=== PATIENT | female | born 1970 | race Caucasian/White ===

== ENCOUNTER 2017-07-20 21:09 | Emergency (ER) | payer MEDICAID, SELFPAY ==
[2017-07-20 21:15] VITALS: BP 129/59; PULSE 108; RESP 18; TEMP 36.6; O2SAT 100; BMI 41.3
--- NOTE | 2017-07-20 21:33 | CT_ITS ---
STUDY: CT ABDOMEN AND PELVIS WITHOUT CONTRAST REASON FOR EXAM: Female, 47 years old. Abdominal pain and chills. RADIATION DOSAGE (If Supplied By Facility): CTDIvol = ( 22.53 ) mGy, DLP = ( 1401.50 ) mGycm TECHNIQUE: Transaxial images were obtained from the dome of the diaphragm to the symphysis pubis without oral contrast, and without intravenous contrast. Sagittal and coronal images were reconstructed. Individualized dose optimization techniques were used for this CT. COMPARISON: Prior comparison studies are not available for review at this time. FINDINGS: The visualized lung bases are unremarkable. The visualized portions of the heart are within normal limits. Normal liver. There is no evidence of gallstones. The common bile duct however appears to be dilated and somewhat denser than simple bile. Normal spleen. Normal pancreas. Normal bilateral adrenal glands. Normal right kidney. There is a 4 mm nonobstructing stone in the midpole of the left kidney. There is no evidence of hydronephrosis. Normal visualized stomach. There are fluid-filled slightly prominent proximal small bowel loops. The more distal small bowel loops are less distended and normal in caliber. There is fecal retention. The descending colon is under distended. There is mild diverticulosis of the sigmoid colon but there is no evidence of acute diverticulitis. The appendix is visualized and appears normal. Normal abdominal aorta. Normal inferior vena cava. Normal retroperitoneum. The urinary bladder is underdistended. There is absence of the uterus consistent with a prior hysterectomy. There is diastases of the anterior rectus muscles. There is no definite hernia. There is no demonstrated acute osseous changes. CT/Abdomen/Pelvis without Cont IMPRESSION: Fluid-filled proximal small bowel loops which could be due to ileus or enteritis. Early small bowel obstruction is less likely but cannot be entirely excluded. Dilated and somewhat dense common bile duct. Further evaluation with gallbladder ultrasound or MRCP are recommended. Diverticulosis without evidence of acute diverticulitis. 4 mm nonobstructing stone in the left kidney without evidence of hydronephrosis. Electronically Signed: Derick Guzman MD at 22:59 EST Tel , Service support ,
[2017-07-20] MEDS: Ondansetron 4 MG/2 ML Vial IV (21:50)
[2017-07-20] MEDS: 0.9% Normal Saline 1,000 ML 1000 ML IV (21:50)
[2017-07-20 21:54] LABS: Absolute Lymphocyte Count 2.23 X10^3/ul (0.83-4.51); Absolute Neutrophil Count 2.9 X10^3/uL (2.0-7.7); Basophil# 0.02 X10^3/uL; Basophil% 0.3 % (0-1); Eosinophil# 0.28 X10^3/uL; Eosinophils% 4.8 % (0-5); Lymphocyte # 2.23 X10^3/ul (4.0); Lymphocyte % 38.5 % (19-41); Mean Corp Hgb Conc 33.3 g/gl (32-36); Mean Corpuscular Hgb 30.2 pg (27.0-32.0); Mean Corpuscular Volume 90.5 fL (81-99); Mean Platelet Vol. 11.9 fl (6.2-12.0); Monocyte# 0.31 X10^3/uL; Monocyte% 5.4 % (0-10); Neutrophil # 2.94 X10^3/uL (2.7-7.7); Neutrophil % 50.8 % (47-70); POSITIVE COUNT NO; POSITIVE DIFFERENTIAL NO; POSITIVE MORPHOLOGY NO; Platelet Count 201 K/mm3 (150-450); RBC Distribution Width CV 14.2 % (11.6-14.6); RBC Distribution Width SD 46.5 fl (35.1-43.9); Red Blood Count 4.64 M/mm3 (4.2-5.4); White Blood Count 5.8 K/mm3 (4.4-11.0)
[2017-07-20 22:05] LABS: AST(SGOT) 25 U/L (15-37); Alanine Aminotransfer ALT/SGPT 40 U/L (13-56); Albumin, Serum 3.7 g/dL (3.2-5.0); Alkaline Phosphatase 74 U/L (45-117); Anion Gap 7 (5-15); BUN 13 mg/dL (7-18); Calcium,Total 9.2 mg/dL (8.5-10.1); Chloride 109 mmol/L (98-107); Creatinine, Serum 0.81 mg/dL (0.55-1.02); EST Glomerular Filtration Rate 81 mL/min (>60); Est Glom Filt Rate - Afr Amer 98 mL/min (>60); Globulin 3.6 g/dL (2.2-4.2); Glucose 108 mg/dL (74-106); Lipase 224 U/L (73-393); Potassium 3.8 mmol/L (3.5-5.1); Protein, Total 7.3 g/dL (6.4-8.2); Sodium Level 143 mmol/L (136-145)
[2017-07-20 22:07] LABS: Bacteria 0 SEEN /hpf (None Seen); Mucous, Urine 0 SEEN /hpf (<or=2+); Red Blood Cells-Urine 0 SEEN /hpf (0-5)
[2017-07-20 22:09] LABS: Color, Urine Yellow (Yellow); Glucose, Dipstick Normal (Normal); Ketone-Dipstick Negative (Negative); Leukocyte Esterase-Dipstick 25 /ul (Negative); Nitrite-Dipstick Negative (Negative); Occult Blood-Urine Negative /ul (Negative); Protein-Dipstick Negative (Negative); Urine Bilirubin Dipstick Negative (Negative); Urine Clarity Clear (Clear); Urine Urobilinogen Normal (Normal)
--- NOTE | 2017-07-20 22:13 | ED.VISSUMM ---
- ER Visit Summary Date of Service: 07/20/17 Chief Complaint: Abdominal pain History of Present Illness: The patient is a 47 F with abdominal pain for several months. The pain is in her upper abdomen and she feels that her intestines are twirling. She also feels pain like a charley horse. The patient saw a physician's ophthalmology assistant last week and was instructed to present to the ED for an evaluation, but she did not because her family was visiting this weekend. She had continued symptoms and her family left, and so she presents today for an evaluation. She also has left lower quadrant pain. She has no history of diverticulosis or diverticulitis. She denies any change in her bowel movements. She also tells me that she had a recent elevated white blood cell count and abnormal kidney function testing. She did have follow-up blood work and tells me that her labs were back to normal. She has had elevated liver enzymes in the past. Patient also complains of bilateral lower extremity pitting edema. Denies any history of CHF or other cardiac disease. Physical Examination: Afebrile and vital signs unremarkable except for a heart rate of 108. Patient appears nontoxic and in no acute distress. Skin appears normal in color without diaphoresis or pallor. Heart is slightly tachycardic but regular. Lungs are clear throughout. Abdomen is tender to palpation in the left lower quadrant. No guarding or rebound. No distention noted. No masses palpable. Back is nontender. Patient has 1+ lower extremity pitting edema. Calves soft and supple otherwise. Pulses strong and equal. Test Results: Laboratory studies, urinalysis, and CT abdomen and pelvis pending. Emergency Department Course and Treatment: Patient received fluids, morphine, and Zofran while awaiting results. CBC, CMP, lipase, urinalysis unremarkable. CT abdomen showed a fluid-filled small bowel loops concerning for ileus versus enteritis versus early small bowel obstruction. She also had a dilated and dense common bile duct. Right upper quadrant ultrasound is pending. She also had diverticulosis without diverticulitis. Patient had no new or worsening symptoms on reevaluation. I spoke with her about the abnormal CT findings. The patient says she cannot be admitted because she has to take care of her mom at home. She will come back if able. Before she leaves, we will check a right upper quadrant ultrasound. The oncoming physician will check the results of the ultrasound. If negative, the patient will leave AGAINST MEDICAL ADVICE. If the ultrasound is abnormal, the oncoming physician will address the results. I suspect the patient may still request to leave AGAINST MEDICAL ADVICE. Patient was advised of the risks of leaving AGAINST MEDICAL ADVICE including worsening pain, dehydration, and other complications from ileus and/or obstruction. Patient voiced understanding and agreement. Treatment Plan: As above Disposition: Leaving AGAINST MEDICAL ADVICE pending the results of the right upper quadrant ultrasound Impression: 1. Ileus 2. Dilated common bile duct This note was generated with [employer] dictation software. It may contain incorrect words, spelling, and punctuation that were not noted in review of the chart prior to signing ED Disposition - Plan for ED Patient: Chief Complaint: General Illness Referrals: Glenn Jefferson MD [Primary Care Provider] -
[2017-07-20 22:15] LABS: Squamous Epithelial Cells - UA 5-10 SEEN /hpf (5-10); White Blood Cells 0-5 SEEN /hpf (0-5)
--- NOTE | 2017-07-20 23:22 | US_ITS ---
STUDY: ABDOMINAL ULTRASOUND - RIGHT UPPER QUADRANT REASON FOR VISIT: Female, 47 years old. Normal CBD on recent CT scan. TECHNIQUE: Ultrasound evaluation of the right upper quadrant was performed with real-time and static grant-scale imaging. TECHNICAL QUALITY: Adequate. COMPARISON: None. FINDINGS: Liver: The liver measures 15.3 cm. There is normal echogenicity of the liver. The bile ducts are within normal limits. There is hepatic color flow. The direction of portal flow is hepatopetal. There is no demonstrated mass lesion. Gallbladder: Gallbladder is distended and tortuous. The gallbladder wall measures 2 mm. There is a negative sonographic Medina's sign. There is no pericholecystic fluid. There are no gallstones. Common Bile Duct (C.B.D.): The common bile duct measures 8 mm. Pancreas: The pancreas is grossly unremarkable but suboptimally visualized. The tail of the pancreas is obscured by bowel gas. Right Kidney: Normal size of the right kidney. The right kidney measures 12 x 5.3 x 5 cm. Normal renal cortex. The right cortex measures 1.2 cm. There is no demonstrated renal mass or cyst. There is probable small nonobstructing stone in the right kidney. There is no evidence of hydronephrosis. US/Gallbladder IMPRESSION: Dilated common bile duct without evidence of gallstones. Further evaluation with MRCP might be of value. Small nonobstructing stone in the right kidney. Electronically Signed: Derick Guzman MD at 0:24 EST Tel , Service support ,
[2017-07-20 23:31] VITALS: RESP 18
--- NOTE | 2017-07-20 23:47 | ED.DEP ---
ED Disposition - Plan for ED Patient: Chief Complaint: General Illness Instructions: Ileus Referrals: Glenn Jefferson MD [Primary Care Provider] -
[2017-07-21 00:47] VITALS: BP 121/75; PULSE 98; RESP 14; O2SAT 99
--- NOTE | 2017-07-21 00:47 | ED.RN ---
THIS RN GAVE PT VERBAL AND WRITTEN DISCHARGE INSTRUCTIONS. AMA PAPERWORK SIGNED PRIOR TO THIS RN ASSUMING PT CARE. THIS RN ASKS PT IF SHE HAS ANY QUESTIONS. PT DENIES FURTHER QUESTIONS ON DISCHARGE INSTRUCTIONS. PT TOLD TO RETURN TO ED FOR ANY WORSENED SX OF NEW SX. PT REPORTS IF SHE CAN FIND SOMEONE TO TAKE CARE OF HER MOTHER THAT SHE WOULD RETURN TO BE ADMITTED. PT THEN VOICES CONCERN ABOUT SWELLING IN HER LEGS. THIS RN STATED SHE COULD HAVE THE DRJose RETURN TO ROOM AND ANSWER ANY FURTHER QUESTIONS. PT DENIES OFFER. IV D/C AND COVERED WITH 2X2 GAUZE DRESSING. MINIMAL BLEEDING NOTED. PT EDUCATED NOT TO DRIVE AFTER HAVING NARCOTIC MEDICATION. PT VERBALIZES UNDERSTANDING, AND REPORTS THAT SHE WILL FIGURE IT OUT. PT DRESSES SELF AND AMBULATES OUT OF ER WITH NO STAFF ASSISTANCE. PT TO FOLLOW UP WITH DR. NINO.
== END 2017-07-21 00:56 | disposition left against medical advice (07) ==
PROVIDERS: Emergency Medicine; Emergency Provider Emergency Medicine; Family Provider Family Medicine; PCP Family Medicine
DX: K56.7 Ileus, unspecified (principal); K83.8 Other specified diseases of biliary tract; K57.30 Diverticulosis of large intestine without perforation or abscess without bleeding; N20.0 Calculus of kidney; R60.0 Localized edema; R35.0 Frequency of micturition; D35.2 Benign neoplasm of pituitary gland; Z90.710 Acquired absence of both cervix and uterus; Z79.82 Long term (current) use of aspirin; Z79.899 Other long term (current) drug therapy; Z72.0 Tobacco use
CPT/HCPCS: 74176; 76705; 80053; 81001; 83690; 85025; 96361; 96374; 96375; 99283; J7030; A4216; J2405

== ENCOUNTER 2017-07-24 19:33 | Emergency (ER) | payer MEDICAID, SELFPAY ==
[2017-07-24 19:34] VITALS: BP 157/89; PULSE 118; RESP 16; TEMP 36.7; O2SAT 97; BMI 41.3
[2017-07-24] MEDS: 0.9% Normal Saline 1,000 ML 1000 ML IV (20:31)
[2017-07-24 20:48] LABS: Absolute Lymphocyte Count 2.21 X10^3/ul (0.83-4.51); Absolute Neutrophil Count 2.8 X10^3/uL (2.0-7.7); Basophil# 0.02 X10^3/uL; Basophil% 0.3 % (0-1); Eosinophil# 0.24 X10^3/uL; Eosinophils% 4.2 % (0-5); Hematocrit 42.9 % (37-47); Hemoglobin 14.3 g/dl (12.0-15.0); Lymphocyte # 2.21 X10^3/ul (4.0); Lymphocyte % 38.4 % (19-41); Mean Corp Hgb Conc 33.3 g/gl (32-36); Mean Corpuscular Hgb 29.7 pg (27.0-32.0); Mean Corpuscular Volume 89.2 fL (81-99); Mean Platelet Vol. 11.7 fl (6.2-12.0); Monocyte# 0.45 X10^3/uL; Monocyte% 7.8 % (0-10); Neutrophil # 2.84 X10^3/uL (2.7-7.7); Neutrophil % 49.3 % (47-70); Platelet Count 228 K/mm3 (150-450); RBC Distribution Width CV 13.7 % (11.6-14.6); RBC Distribution Width SD 44.9 fl (35.1-43.9); Red Blood Count 4.81 M/mm3 (4.2-5.4); White Blood Count 5.8 K/mm3 (4.4-11.0)
[2017-07-24 20:49] LABS: POSITIVE COUNT NO; POSITIVE DIFFERENTIAL NO; POSITIVE MORPHOLOGY NO
[2017-07-24 20:54] LABS: Color, Urine Yellow (Yellow); Glucose, Dipstick Normal (Normal); Ketone-Dipstick Negative (Negative); Leukocyte Esterase-Dipstick 25 /ul (Negative); Nitrite-Dipstick Negative (Negative); Occult Blood-Urine Negative /ul (Negative); Protein-Dipstick Negative (Negative); Specific Gravity, Urine 1.025 (1.002-1.030); Urine Bilirubin Dipstick Negative (Negative); Urine Clarity Sl. Cloudy (Clear); Urine Urobilinogen Normal (Normal)
[2017-07-24 21:03] LABS: AST(SGOT) 25 U/L (15-37); Alanine Aminotransfer ALT/SGPT 38 U/L (13-56); Albumin, Serum 3.8 g/dL (3.2-5.0); Alkaline Phosphatase 75 U/L (45-117); Anion Gap 9 (5-15); BUN 17 mg/dL (7-18); BUN/Creat Ratio 19.2 RATIO (10-20); Bilirubin, Direct 0.09 mg/dL (0.00-0.30); Calcium,Total 9.1 mg/dL (8.5-10.1); Chloride 109 mmol/L (98-107); Creatinine, Serum 0.89 mg/dL (0.55-1.02); EST Glomerular Filtration Rate 73 mL/min (>60); Est Glom Filt Rate - Afr Amer 88 mL/min (>60); Estimated Creatinine Clearance 82.54 ml/min; Globulin 3.4 g/dL (2.2-4.2); Glucose 111 mg/dL (74-106); Lipase 229 U/L (73-393); Potassium 3.9 mmol/L (3.5-5.1); Protein, Total 7.2 g/dL (6.4-8.2); Sodium Level 143 mmol/L (136-145)
[2017-07-24 21:05] LABS: Mucous, Urine 2+ /hpf (<or=2+)
[2017-07-24 21:06] LABS: White Blood Cells 5-10 SEEN /hpf (0-5)
[2017-07-24 21:07] LABS: Red Blood Cells-Urine 0-5 SEEN /hpf (0-5)
[2017-07-24 21:08] LABS: Bacteria RARE /hpf (None Seen); Calcium Oxalate Crystals Ur RARE /hpf (<or=2+); Squamous Epithelial Cells - UA 5-10 SEEN /hpf (5-10)
--- NOTE | 2017-07-24 21:17 | RAD_ITS ---
STUDY: X-RAY - ACUTE ABDOMINAL SERIES REASON FOR EXAM: Female, 47 years old. Abdominal pain. TECHNIQUE: Single view of the chest. Supine, and erect view(s) of the abdomen were obtained. COMPARISON: None. FINDINGS: The lungs are clear and expanded. Normal size heart. Normal mediastinum and angelina. Normal visualized pulmonary arteries. Normal visualized aortic arch and descending thoracic aorta. There is a non-specific bowel gas pattern. The soft tissue structures of the abdomen and pelvis are unremarkable. Normal visualized osseous structures. RAD/Acute Abdomen Inc Chest IMPRESSION: No significant abnormality in the chest, abdomen or pelvis. Electronically Signed: Charles Tarango MD at 22:31 EST , Service support ,
--- NOTE | 2017-07-24 22:12 | ED.DCSUM_ITS ---
- ER Visit Summary Date of Service: 07/24/17 Chief Complaint: Abdominal pain History of Present Illness: The patient is a [address] Jefferson and his seen Dr. Blount in the distant past. She reports that she has abdominal pain began approximately 4 months ago. Said constant waxing and waning pain. Is aching in quality. Norberto 10 at worst and 510 currently. Is worsened by movement. It is unchanged by food. She denies any spicy or fatty food intolerance. States pain is relieved by nothing. She has had nausea without vomiting. She has had one loose stool today. No blood in her stools or black tarry stools. She is passing flatus. She complains of frequent urination, but no dysuria. She reports that she was seen in the emergency department a few days ago and left AGAINST MEDICAL ADVICE when they wanted to admit her to the hospital. Physical Examination: Vitals: Stable. Afebrile. General: Well-nourished and well-developed. Head: Normocephalic atraumatic. Neck: Supple, no lymphadenopathy. No JVD. Nontender. Cardiovascular: Regular rate and rhythm. No murmurs. Respiratory: No respiratory distress. Clear to auscultation bilaterally. Abdominal: Soft, mild diffuse tenderness palpation with moderate tenderness palpation the left lower quadrant, nondistended, normal bowel sounds. No guarding, rebound, or peritoneal signs. Back: Nontender. Extremities: Nontender, no edema. Skin: Normal color, no rash. Neurologic: Alert and oriented ?3. Cranial nerves II through XII are intact. Normal strength and sensation. Psych: Normal affect. Test Results: CBC is normal. Chem-7 is marked for chloride 109 glucose 111. LFTs are normal. Lipase normal. Urinalysis is negative. Three-view of the abdomen shows a nonspecific bowel gas pattern. I discussed this with the patient and the results of her prior CT. Is quite insistent that I obtain another CT. Because of this a CT of the flank was obtained. It shows no evidence of small bowel obstruction or ileus. Normal appendix. Stable 4 mm nonobstructing stone left kidney. No acute disease. Emergency Department Course and Treatment: Patient is quite upset that I have not found a cause for her abdominal pain. Discussed her that this is chronic in etiology and that she should follow-up with her primary care physician and/ or Dr. Blount for further evaluation. Treatment Plan: She will be discharged with Bentyl, Zantac, and a prescription for 12 Otterbein. Instructed to follow-up with her primary care physician for further evaluation. Disposition: To home in improved and stable condition. Impression:. Abdominal pain, uncertain cause. This note was generated with [employer] dictation software. It may contain incorrect words, spelling, and punctuation that were not noted in review of the chart prior to signing ED Disposition - Plan for ED Patient: Disposition: Home or Assisted Living Chief Complaint: Abd Pain Instructions: ED Abdominal Pain Unkn Cause Prescriptions: Hydrocodone Bitart/Apap 5-325 [Otterbein 5/325] 1 - 2 tablet PO Q4H PRN PRN 3 Days # 12 tablet PRN Reason: Pain Dicyclomine HCl [Bentyl] 20 mg PO TIDAC #20 capsule Ranitidine HCl [Zantac] 300 mg PO DAILY #30 tablet Referrals: Glenn Jefferson MD [Primary Care Provider] - 3-5 Days Júnior Blount MD [STAFF PHYSICIAN] - As soon as possible
--- NOTE | 2017-07-24 22:39 | CT_ITS ---
STUDY: CT ABDOMEN AND PELVIS WITHOUT CONTRAST REASON FOR EXAM: Female, 47 years old. Left lower quadrant pain RADIATION DOSAGE (If Supplied By Facility): CTDIvol = ( 24.17 ) mGy, DLP = ( 1219.96 ) mGycm TECHNIQUE: Transaxial images were obtained from the dome of the diaphragm to the symphysis pubis without oral contrast, and without intravenous contrast. Sagittal and coronal images were reconstructed. Individualized dose optimization techniques were used for this CT. COMPARISON: CT dated 07/20/2017. FINDINGS: The visualized lung bases are clear. The visualized portions of the heart and pericardium are within normal limits. There are no calcified gallstones present. The liver demonstrates an unremarkable unenhanced appearance. The spleen is normal in size. The pancreas demonstrates an unremarkable unenhanced appearance. The adrenal glands are within normal limits. There is a stable 4 mm nonobstructing stone in the collecting system of the left kidney. There are no additional urinary calculi. There is no hydronephrosis. There is a stable small hiatal hernia. There is no bowel obstruction or inflammation. The appendix is visualized and appears normal. The aorta is normal in caliber. There is no abdominal or pelvic free air, free fluid, fluid collection or lymphadenopathy. There are no destructive osseous lesions. CT/Abdomen/Pelvis without Cont IMPRESSION: Stable 4 mm nonobstructing stone in the collecting system of the left kidney. No additional urinary calculi. No hydronephrosis. No bowel obstruction or inflammation. Normal appendix. Electronically Signed: Chucky Warren, at 23:34 EST Tel , Service support ,
[2017-07-24 23:09] VITALS: PULSE 85; RESP 18; O2SAT 98
[2017-07-25] MEDS: HYDROcodone Bitartrate/Apap 5/325 Tablet PO (00:37)
== END 2017-07-25 00:39 | disposition home or self-care (01) ==
PROVIDERS: Emergency Provider Emergency Medicine; Family Provider Family Medicine; PCP Family Medicine
DX: R10.9 Unspecified abdominal pain (principal); R68.83 Chills (without fever); R06.00 Dyspnea, unspecified; R05 Cough; R11.0 Nausea; R19.7 Diarrhea, unspecified; R35.0 Frequency of micturition; R14.3 Flatulence; N20.0 Calculus of kidney; E78.00 Pure hypercholesterolemia, unspecified; D35.2 Benign neoplasm of pituitary gland; M79.7 Fibromyalgia; Z87.19 Personal history of other diseases of the digestive system; Z90.710 Acquired absence of both cervix and uterus; F17.200 Nicotine dependence, unspecified, uncomplicated; Z79.82 Long term (current) use of aspirin; Z79.899 Other long term (current) drug therapy
CPT/HCPCS: 74022; 74176; 80048; 80076; 81001; 83690; 85025; 99283; J7030; A4216

== ENCOUNTER → 2017-10-02 10:13 | Outpatient (CLI) | payer MEDICAID, SELFPAY ==
--- NOTE | 2017-10-02 10:15 | ADUL_ITS ---
Reason For Study: RT radial artery occlusion S/P catherization RIGHT Right Brachial velocity = 95.1 cm/sec. RT Radial Art Prox = 43.6 cm/s RT Radial Art Mid = 53.4 cm/s RT Radial Art Distal = 46.0 cm/s RT Ulnar Art Prox = 96.2 cm/s RT Ulnar Art Mid = 111.0 cm/s RT Ulnar Art Dist = 84.9 cm/s. Interpretation Summary The right brachial artery, radial artery, and ulnar artery appear widely patent, demonstrating normal, pulsatile arterial flow at all levels interrogated. There is no evidence of significant stenosis or occlusion. Ordering Physician: Carroll Blue Referring Physician: Glenn Jefferson Performed By: Anabela Lee, KAYLAH, RVT
--- NOTE | 2017-10-02 10:15 | VDLE_ITS ---
Reason For Study: LLE pain/swelling RIGHT LEFT CFV is compressible, spontaneous, phasic, GSV is normal. competent and demonstrates normal CFV is compressible, spontaneous, phasic, augmentation. competent, and demonstrates normal Procedure augmentation. Exam performed in department. FV is compressible, spontaneous, phasic, The study was technically difficult. competent and demonstrates normal The exam was diagnostic. augmentation. POP V is compressible, spontaneous, phasic, competent and demonstrates normal augmentation. T/P Trunk is compressible. PTV is compressible. LT PerV is compressible. Interpretation Summary Deep veins of the left lower extremity are patent and compressible segmentally. There is no evidence of left lower extremity deep vein thrombosis. Valvular competence appears intact within the proximal deep venous system on the left . The left greater saphenous vein appears patent and compressible segmentally. Ordering Physician: Carroll Blue Performed By: Anabela Lee, KAYLAH, RVT
--- NOTE | 2017-10-02 11:24 | MRI_ITS ---
STUDY: MR CHOLANGIOPANCREATOGRAPHY (MRCP) REASON FOR EXAM: Female, 47 years old. Bloating. TECHNIQUE: Standard MRCP technique was utilized. COMPARISON: CT dated 07/24/2017. Ultrasound dated 07/20/2017. FINDINGS: Gall Bladder: Normal with no distention or demonstrated fixed intraluminal filling defect. Cystic duct: Normal with no demonstrated fixed filling defect. Intrahepatic ducts: Normal visualized intrahepatic ducts with no demonstrated fixed filling defect, dilation or stricture. Common hepatic duct: Normal with no demonstrated fixed filling defect, dilation or stricture. Common bile duct: Measures 6 mm. Normal with no demonstrated fixed filling defect, dilation or stricture. Pancreatic duct: Normal with no demonstrated fixed filling defect, dilation or stricture. MRI/Abdomen without Contrast IMPRESSION: Normal MR Cholangiopancreatography (MRCP). Electronically Signed: Chucky Kelley, at 16:14 EDT Tel , Service support ,
--- NOTE | 2017-10-02 11:28 | MRI_ITS ---
MR Brain WO/W Contrast INDICATION: microadenomarecheck, ansari's, dizziness, left arm,merle foot numbness COMPARISON: CT brain November 21, 2016 TECHNIQUE: Multiplanar multisequence MRI examination of the brain without and with IV contrast. 11 mL od Gadavist were given intravenously.. FINDINGS: There is no evidence of restricted diffusion to suggest acute ischemia/infarction. Ventricular system is normal in size and symmetric. Cortical sulci, sylvian fissures, and basal cisterns are well seen. Rao-white matter junction is normal. Midline structures and craniocervical junction are normal. The pituitary gland is normal in size with 5 mm craniocaudad dimension. There is a normal posterior pituitary bright spot and homogeneous postcontrast enhancement of the pituitary gland and the stalk. Pituitary stalk is in midline. Optic chiasm is normal. The cerebellopontine angles are normal and symmetric. Supra-and infratentorial brain parenchyma demonstrates normal signal. There is no evidence of parenchymal microhemorrhage, mass effect or midline shift, or abnormal extra-axial collection. After contrast administration, there is no abnormal enhancement identified. Flow-voids of the [place] vascularity are well seen. The paranasal sinuses and mastooid air cells are clear. MRI/Brain W/WO Contrast IMPRESSION: Unremarkable, age-appropriate MRI examination of the brain. Unremarkable appearance of the pituitary gland on pre-and delayed postcontrast scan. No evidence of macroadenoma. If there is high clinical concern for microadenoma, consider dynamic postcontrast sequences. at [id number] Reported and signed by: Sheyla Juares MD Electronically Signed: Sheyla Juares MD at 23:23 EDT Tel , Service support ,
== END ==
PROVIDERS: Family Provider Family Medicine; PCP Family Medicine; Visit Provider Internal Medicine Cardiovascular Disease
DX: E22.1 Hyperprolactinemia (principal); D35.2 Benign neoplasm of pituitary gland; M79.662 Pain in left lower leg; M79.89 Other specified soft tissue disorders; R07.89 Other chest pain; I42.8 Other cardiomyopathies
CPT/HCPCS: 70553; 74181; 93926; 93971; A9585

== ENCOUNTER 2017-11-09 03:49 | Emergency (ER) | payer MEDICAID, SELFPAY ==
[2017-11-09 03:51] VITALS: BP 137/99; PULSE 82; RESP 16; TEMP 36; O2SAT 98; BMI 34.8
--- NOTE | 2017-11-09 04:00 | RAD_ITS ---
STUDY: X-RAY CHEST REASON FOR EXAM: Female, 47 years old. Cough, right lateral chest pain TECHNIQUE: PA and lateral views of the chest. COMPARISON: 02/22/2017 FINDINGS: There is more shallow intervertebral level with compression of the basilar parenchyma. There is no demonstrated pleural abnormality. Normal size heart. Normal mediastinum and angelina. Normal visualized pulmonary arteries. Normal visualized aortic arch and descending thoracic aorta. Normal visualized thoracic spine. Normal visualized ribs, clavicles, and shoulders. There is no demonstrated abnormality of the visualized soft tissue structures of the upper abdomen. RAD/Chest PA and Lateral IMPRESSION: Compression of basilar parenchyma felt to be due to shallow intervertebral level. Early basilar infiltrates less likely. Electronically Signed: Roshni Go MD at 5:09 EDT , Service support ,
[2017-11-09] MEDS: traMADol 50 MG Tablet PO (04:14)
--- NOTE | 2017-11-09 04:20 | ED.VISSUMM ---
- ER Visit Summary Date of Service: 11/09/17 Chief Complaint: [] Chest wall pain after coughing. History of Present Illness: The patient is a 47 F [] complaining of right chest wall pain after coughing. She reports feeling a pop. She denies shortness of breath. Denies midsternal chest pain. Patient was very rude to nursing staff during initial intake of questioning. Patient has a unpleasant demeanor. Physical Examination: [] Afebrile, vital signs stable. 47-year-old female no acute distress. Cardiovascular exam is regular rate and rhythm. Palpation of the chest wall reveals mild tenderness of the right anterolateral ribs. Lungs are clear to auscultation. Abdomen is soft and nontender. Test Results: [] 2 view chest x-ray is negative per my interpretation. No signs of pneumothorax. Emergency Department Course and Treatment: [] Patient given 1 Ultram for analgesia. X-rays are negative. Patient was encouraged to follow-up with her primary care physician. She was given a short-term solution for Ultram 50 mg #8. Treatment Plan: [] Follow-up with primary care physician. Disposition: [] Discharge, stable. Impression: [] Chest wall pain This note was generated with [employer] dictation software. It may contain incorrect words, spelling, and punctuation that were not noted in review of the chart prior to signing ED Disposition - Plan for ED Patient: Chief Complaint: Chest Other Referrals: Glenn Jefferson MD [Primary Care Provider] -
--- NOTE | 2017-11-09 04:23 | ED.DCSUM_ITS ---
- ER Visit Summary Date of Service: 11/09/17 Chief Complaint: [] Chest wall pain after coughing. History of Present Illness: The patient is a 47 F [] complaining of right chest wall pain after coughing. She reports feeling a pop. She denies shortness of breath. Denies midsternal chest pain. Patient was very rude to nursing staff during initial intake of questioning. Patient has a unpleasant demeanor. Physical Examination: [] Afebrile, vital signs stable. 47-year-old female no acute distress. Cardiovascular exam is regular rate and rhythm. Palpation of the chest wall reveals mild tenderness of the right anterolateral ribs. Lungs are clear to auscultation. Abdomen is soft and nontender. Test Results: [] 2 view chest x-ray is negative per my interpretation. No signs of pneumothorax. Emergency Department Course and Treatment: [] Patient given 1 Ultram for analgesia. X-rays are negative. Patient was encouraged to follow-up with her primary care physician. She was given a short- term solution for Ultram 50 mg #8. Treatment Plan: [] Follow-up with primary care physician. Disposition: [] Discharge, stable. Impression: [] Chest wall pain This note was generated with [employer] dictation software. It may contain incorrect words, spelling, and punctuation that were not noted in review of the chart prior to signing ED Disposition - Plan for ED Patient: Chief Complaint: Chest Other Referrals: Glenn Jefferson MD [Primary Care Provider] -
--- NOTE | 2017-11-09 04:23 | ED.DEP ---
ED Disposition - Plan for ED Patient: Disposition: Home or Assisted Living Chief Complaint: Chest Other Instructions: ED Chest Pain Costochondritis Prescriptions: traMADol [Ultram (G)] 50 mg PO Q4H PRN PRN #8 tab PRN Reason: Pain Referrals: Glenn Jefferson MD [Primary Care Provider] -
== END 2017-11-09 04:30 | disposition home or self-care (01) ==
PROVIDERS: Emergency Provider Emergency Medicine; Family Provider Family Medicine; PCP Family Medicine
DX: R07.89 Other chest pain (principal); E66.9 Obesity, unspecified; J45.909 Unspecified asthma, uncomplicated; E78.00 Pure hypercholesterolemia, unspecified; M79.7 Fibromyalgia; Z79.01 Long term (current) use of anticoagulants; Z79.899 Other long term (current) drug therapy; Z72.0 Tobacco use
CPT/HCPCS: 71046; 99283

== ENCOUNTER 2018-02-03 13:04 | Outpatient (RCR) | payer MEDICAID, SELFPAY ==
--- NOTE | 2018-02-08 15:00 | HP.OTFCE_ITS ---
HP OT Functional Capacity Eval - Task Lift Floor (Occasional 1-33% of Day): 25# Floor (Frequent 34-66% of Day): 12# Floor (Constant 67-100% of Day): 5# Floor PDL: Light-Medium Knee (Occasional 1-33% of Day): 25# Knee (Frequent 34-66% of Day): 12# Knee (Constant 67-100% of Day): 5# Knee PDL: Light-Medium Waist (Occasional 1-33% of Day): 20# Waist (Frequent 34-66% of Day): 10# Waist (Constant 67-100% of Day): NA Waist PDL: Light Shoulder (Occasional 1-33% of Day): 20# Shoulder (Frequent 34-66% of Day): 10# Shoulder (Constant 67-100% of Day): NA Shoulder PDL: Light Overhead (Occasional 1-33% of Day): 10# Overhead (Frequent 34-66% of Day): NA Overhead (Constant 67-100% of Day): NA Overhead PDL: Sedentary Comments: pt needed cues with increase lift magdalene. pt able to follow direction to gain better lift tech. - Work Activity/Posture Bending: Occasional Ability (1-33% of day) Comments: Low Occasional ability Squatting: Occasional Ability (1-33% of day) Comments: Low occasional ability Kneeling: No Ablility (0% of day) Reaching out: Frequent Ability (34-66% of day) Comments: while sitting Reaching up: Frequent Ability (34-66% of day) Comments: while sitting Sitting: Frequent Ability (34-66% of day) Comments: with shifting weight Walking: Occasional Ability (1-33% of day) Comments: Low occasional ability Standing: Occasional Ability (1-33% of day) Comments: Low occasional ability - Reference Duration Sedentary Sedentary Light Light Light Medium Medium Medium Heavy Very Heavy Heavy Occasional (0-33% of day) Frequent (34-66% of day) Constant (67-100% of day) 10 # Negligible Negligible 15 # 8 # Negligible 20 # 10# Negli. 35 # 18 # 7 # 50 # 25 # 10 # 75 # 100 # >100 # 38 # 50 # >50 # 15 # 20 # >20 # - Patient Information Height: 1.73 m Weight:: 121.109 kg Hand Dominance: Left - Medical History Medical History Including Restrictions: Pt states 2016 she developed a left MF trigger finger, went to her right thumb and pt went to Orthopedic doctor followed with injection ending up with 7 of the 10 fingers with trigger fingers. Pt developed bilateral planter fasiitis and due to bilateral foot pain and swelling pt has difficutly standing for long periods of time. PT states she did go to a RA specialist in the fall of 2016. RA dx with some type of autoimue disease. pt states she was working with this to address her inflamation. pt did start injections of Methotrexate this summer. Pt states she developed some kind of heart issue, (chest pain) she has a heart monitor currently on now. Pt gets heart monitor off 2017. Pt is obese. Pt states she does get LE swelling due to COPD dx but can not afford compression socks. Pt reports frustration with trying to figure out what is going on with her health. PT states she smokes 1/2 -1 pack a day. - Diagnoses Diagnoses: Asthma dx possibly 2008. ADHD dx Possible 1997. Anxiety dx possible in 2009. BiPolar dx 1987. Depression dx in 1987 controlled with medication. Planter fasciitis - Symptoms Symptoms: Decreased sleep pattern. Muscle cramps. Numbness in feet. Decreased concentration. Mood swings. Memory issues. Swelling in LE. Left knee pain. Headaches - Pain Pain: Pt reports left knee pain 12/22. - Work History Work History: Pt states she has been employed at [employer] for about two years. 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 pt states she would carry about 15#. Pt states she is currently working 2 hours a day 2 days a week. She is on her feet the two hours she works at the [employer] which pt does not like because of the heat and it increases her difficulty with her breathing. pt reports frustration of her change in position. - Behavioral Behavioral: Pt cooroperative during the assessment. pt emotional and states frustration with not knowing what is going on with her. - ADLS ADLS: Pt states she lives in a two story home. Her mom and her son lives with her. Pt states she has one entry step with no rail. Pt states her bedroom is on the second floor and her bathroom is on the first floor. Pt states she has a tub shower combination and she states she has difficulty getting in and out of the shower. Pt states she is ind. with dressing and bathing. Pt states she does the meal prep/cooking, dishes. Pt states she can do the cleaning on her good days. Pt drives [place]. short distances. Pt states her laundry is located in the basement, at least 12 steps. pt can do her shopping. - Physical Examination ROM: pt demo UB/LB ROM WFL. Strength: PT demo with MMT to 4/5 grossly throughout. Right Commercial Credit Specialist Strength Average: 60.00 Right Commercial Credit Specialist Strength Percentile: 22% Left Commercial Credit Specialist Strength Average: 40.00 Left Commercial Credit Specialist Strength Percentile: 6% Right Lateral Pinch Average: 4.00 Right Lateral Pinch Percentile: <10% Left Lateral Pinch Average: 4.00 Left Lateral Pinch Percentile: <10% Right Tripod Pinch Average: 4.66 Right Tripod Pinch Percentile: <10% Left Tripod Pinch Average: 4.00 Left Tripod Pinch Percentile: <10% Sensation: denies at this time- state comes and goes depending on what she does. Fine Motor: denies- pt reports she has no difficulty with picking pills up, manipulating fasteners. Balance: no loss of balance - Non Material Handling Activities Bending: PT demo the ability to bend forward three times. pt was able to complete 6 times pt was unable to perform 10 times or ten times rapidly. pt stated back pain at 4/10 and chest pain 2/10. pt can bend forward on a low occasional ability. Squatting: Pt demo a minimal squat three times with limited base of support, with external support. pt states she feels bones clicking when she squats. pt can squat on a low occasional basis Kneeling: Pt demo no ability to kneel. pt attempted with external support but could not get down to the ground. Reaching out/up: Pt demo the ability to reach up/out three times, ten time and ten times rapidly. Pt complted this while sitting. pt can andrea out/up on a frequent basis. Walking: Pt demo the ability to ambulate 7 min with a reciprical betsy gait pattern. Pt states her left ankle pain 8/10 and muscle cramps in her LE. pt did demo SOB following this task. Pt can ambulate on a low occasional basis. Standing: pt demo the ability to stand for 3 min with shifting body weight. Pt can stand on a low occasional ability Sitting: Pt demo the ability to sit for 50 min with no expressed or apparent discomfot. pt can sit on a frequent basis. Climbing Stairs: Pt demo the ability to ascend/descend ten steps with a reciprical step pattern, with use of bilateral hand rails. - Dynamic Occasional Lifting Capacity Floor Lift: PT demo the ability to liift 25# maximally from this level. Knee Lift: PT demo the ability to liift 25# maximally from this level. Waist Lift: PT demo the ability to liift 20# maximally from this level. Shoulder Lift: PT demo the ability to liift 20# maximally from this level. Overhead Lift: PT demo the ability to liift 10# maximally from this level. Carrying: Pt demo the ability to carry 15# for 40 feet. Comments: pt needed a rest break between lift and carry task. Pain limiting factor with tasks.
== END 2018-02-03 19:00 | disposition home or self-care (01) ==
LOC: OT 13:04
PROVIDERS: Family Provider Family Medicine; PCP Family Medicine; Visit Provider Internal Medicine Rheumatology
DX: M19.90 Unspecified osteoarthritis, unspecified site (principal); M79.7 Fibromyalgia; M25.50 Pain in unspecified joint
CPT/HCPCS: 97750

== ENCOUNTER 2018-10-18 14:12 | Emergency (ER) | payer MEDICAID, SELFPAY ==
[2018-07-08 16:30] VITALS: BMI 41.3
[2018-10-18 14:14] VITALS: BP 156/73; PULSE 85; RESP 20; TEMP 36.4; BMI 40.6
--- NOTE | 2018-10-18 14:46 | CT_ITS ---
STUDY: CT ABDOMEN AND PELVIS WITHOUT CONTRAST REASON FOR EXAM: Female, 48 years old. Left lower quadrant pain with nausea and vomiting RADIATION DOSAGE (If Supplied By Facility): CTDIvol = ( 32.88 ) mGy, DLP = ( 1749.72 ) mGycm TECHNIQUE: Transaxial images were obtained from the dome of the diaphragm to the symphysis pubis without oral contrast, and without intravenous contrast. Sagittal and coronal images were reconstructed. Individualized dose optimization techniques were used for this CT. COMPARISON: July 24, 2017 FINDINGS: There is minor atelectasis within the dependent portion of the lungs. The visualized portions of the heart are within normal limits. Normal liver. Normal gallbladder and extrahepatic biliary system. Normal spleen. Normal pancreas. Normal bilateral adrenal glands. Normal right kidney. There is diffuse swelling of the left kidney with stranding in the perinephric fat. There is a tiny nonobstructing calculus however, there is also moderate hydronephrosis secondary to a calculus in the proximal ureter just distal to the ureteropelvic junction measuring approximately 6.3 x 4.8 mm Normal visualized stomach. Normal small intestine. There are minor diverticular changes of sigmoid colon without evidence for acute diverticulitis.. The appendix is visualized and appears normal. Normal abdominal aorta. Normal inferior vena cava. Normal retroperitoneum. Incompletely distended thick-walled bladder likely of no significance. Uterus not visualized consistent with hysterectomy. Normal abdominal wall. Normal osseous structures. CT/Abdomen/Pelvis without Cont IMPRESSION: Nonobstructing tiny left renal calculus. Moderate left hydronephrosis secondary to calculus in the proximal ureter measuring approximately 6.3 x 4.8 mm Electronically Signed: Mann Marcano MD at 16:12 EDT , Service support ,
--- NOTE | 2018-10-18 14:56 | ED.VISSUMM ---
- ER Visit Summary Date of Service: 10/18/18 Chief Complaint: [] Left flank pain pink urine last night History of Present Illness: The patient is a 48 F [] patient indicates around 1 AM today she began having what she describes as pink-colored urine and then moderate to severe left flank pain that began rather suddenly, the symptoms did not improve she presents for evaluation. She has a history of kidney stones, she was not ill when she went to bed, she had no trauma her bowel habits have been normal, no fever no cough she points to her left lower abdomen complaining of pain to this area that radiates to her left upper back as the focus of her pain Physical Examination: [] Vital signs are within normal range General, no distress resting comfortably HEENT is generally unremarkable The neck is supple no adenopathy Cardiovascular, regular rate and rhythm Lungs, clear bilateral Abdomen, soft nontender, there is a subjective pain to the left lower abdomen there is no rebound or guarding the pain radiates to her left flank the skin here is unremarkable there is no signs of infection bruising trauma Extremities, no clubbing cyanosis or edema Neurologic, awake alert answering questions appropriately moving all 4 extremities Test Results: [] Emergency Department Course and Treatment: [] Given all the above IV fluids screening labs CT abdomen pain management UA UA culture Treatment Plan: [] Patient CT scan shows about a 6 x 3 mm obstructing stone left UVJ area, the rest of her studies were unremarkable the UA is pending, on reevaluation she is feeling much better I discussed all the above with her she again indicates she had a prior kidney stone she was seen by the [facility] urologists she is couple discharge home to follow-up with those physicians in the next few days, she be discharged on Percocet Flomax, if there is any signs of UTI on the UA I have asked the afternoon physicians to check that and start her on Keflex Disposition: [] Home stable Impression: [] Left renal colic left UVJ kidney stone as above This note was generated with [employer] dictation software. It may contain incorrect words, spelling, and punctuation that were not noted in review of the chart prior to signing ED Disposition - Plan for ED Patient: Referrals: Glenn Jefferson MD [Primary Care Provider] -
[2018-10-18 15:20] VITALS: RESP 16
[2018-10-18] MEDS: 0.9% Normal Saline 1,000 ML 1000 ML IV (15:32)
[2018-10-18] MEDS: Ondansetron 4 MG/2 ML Vial IV (15:32)
[2018-10-18] MEDS: morphine 8 MG/ML Syringe IV (15:32)
[2018-10-18 15:36] LABS: Absolute Lymphocyte Count 0.78 X10^3/ul (0.83-4.51); Absolute Neutrophil Count 6.4 X10^3/uL (2.0-7.7); Basophil# 0.01 X10^3/uL; Basophil% 0.1 % (0-1); Eosinophil# 0.03 X10^3/uL; Eosinophils% 0.4 % (0-5); Hematocrit 41.9 % (37-47); Hemoglobin 14.2 g/dl (12.0-15.0); Lymphocyte # 0.78 X10^3/ul (4.0); Lymphocyte % 10.4 % (19-41); Mean Corp Hgb Conc 33.9 g/gl (32-36); Mean Corpuscular Hgb 29.2 pg (27.0-32.0); Mean Corpuscular Volume 86.2 fL (81-99); Mean Platelet Vol. 11.5 fl (6.2-12.0); Monocyte# 0.28 X10^3/uL; Monocyte% 3.7 % (0-10); Neutrophil # 6.42 X10^3/uL (2.7-7.7); Neutrophil % 85.3 % (47-70); Platelet Count 173 K/mm3 (150-450); RBC Distribution Width CV 13.8 % (11.6-14.6); RBC Distribution Width SD 42.2 fl (35.1-43.9); Red Blood Count 4.86 M/mm3 (4.2-5.4); White Blood Count 7.5 K/mm3 (4.4-11.0)
[2018-10-18 15:37] LABS: POSITIVE COUNT NO; POSITIVE DIFFERENTIAL NO; POSITIVE MORPHOLOGY NO
[2018-10-18 15:50] LABS: AST(SGOT) 23 U/L (15-37); Alanine Aminotransfer ALT/SGPT 30 U/L (13-56); Alkaline Phosphatase 82 U/L (45-117); Anion Gap 5 (5-15); BUN 14 mg/dL (7-18); BUN/Creat Ratio 15.1 RATIO (10-20); Bilirubin, Direct 0.11 mg/dL (0.00-0.30); Calcium,Total 9.1 mg/dL (8.5-10.1); Chloride 110 mmol/L (98-107); Creatinine, Serum 0.93 mg/dL (0.55-1.02); EST Glomerular Filtration Rate 69 mL/min (>60); Est Glom Filt Rate - Afr Amer 83 mL/min (>60); Estimated Creatinine Clearance 75.44 ml/min; Globulin 3.1 g/dL (2.2-4.2); Glucose 160 mg/dL (74-106); Lipase 131 U/L (73-393); Potassium 4.1 mmol/L (3.5-5.1); Protein, Total 7.1 g/dL (6.4-8.2); Sodium Level 140 mmol/L (136-145)
--- NOTE | 2018-10-18 16:53 | ED.DEP ---
ED Disposition - Plan for ED Patient: Instructions: ED Stone Renal W Colic Prescriptions: Oxycodone HCl/Acetaminophen [Percocet 5/325] 1 tab PO Q6H PRN PRN 3 Days #12 tab PRN Reason: Pain Cephalexin [Keflex] 500 mg PO Q6 #40 cap Tamsulosin HCl [Flomax] 0.4 mg PO DAILY #7 cap Referrals: Glenn Jefferson MD [Primary Care Provider] - Additional Instructions: Please follow-up with your [facility] urologist return for change in symptoms
--- NOTE | 2018-10-18 16:56 | DCINST.ED_ITS ---
ED Disposition - Plan for ED Patient: Instructions: ED Stone Renal W Colic Prescriptions: Oxycodone HCl/Acetaminophen [Percocet 5/325] 1 tab PO Q6H PRN PRN 3 Days #12 tab PRN Reason: Pain Cephalexin [Keflex] 500 mg PO Q6 #40 cap Tamsulosin HCl [Flomax] 0.4 mg PO DAILY #7 cap Referrals: Glenn Jefferson MD [Primary Care Provider] - Additional Instructions: Please follow-up with your [facility] urologist return for change in symptoms
[2018-10-18 16:59] LABS: Mucous, Urine 0 SEEN /hpf (<or=2+)
[2018-10-18 17:10] LABS: Color, Urine Straw (Yellow); Glucose, Dipstick Normal (Normal); Ketone-Dipstick 15 mg/dl (Negative); Leukocyte Esterase-Dipstick 25 /ul (Negative); Nitrite-Dipstick Negative (Negative); Occult Blood-Urine 250 /ul (Negative); Protein-Dipstick Negative (Negative); Urine Bilirubin Dipstick Negative (Negative); Urine Clarity Cloudy (Clear); Urine Urobilinogen Normal (Normal)
[2018-10-18 17:15] VITALS: RESP 16
[2018-10-18 17:19] LABS: Bacteria 4+ /hpf (None Seen); Red Blood Cells-Urine 25-50 SEEN /hpf (0-5); Squamous Epithelial Cells - UA 0-5 SEEN /hpf (5-10); White Blood Cells 0-5 SEEN /hpf (0-5)
[2018-10-18] MEDS: Cephalexin 250 MG Capsule 500 MG PO (17:45)
[2018-10-18 18:19] VITALS: BP 114/69; PULSE 77; RESP 16; O2SAT 97
--- NOTE | 2018-10-18 18:20 | ED.RN ---
REVIEWED D/C INSTRUCTIONS, FOLLOW UP CARE, PRESCRIPTIONS, AND S/S THAT WOULD WARRANT A RETURN TO THE ED WITH PT. PT VERBALIZED AN UNDERSTANDING AND DENIES FURTHER QUESTIONS FOR THIS RN. PT SKIN P/W/D, RESP EVEN AND UNLABORED, PT A&O X 3, NO DISTRESS NOTED. PT AMBULATED OUT OF ED, GAIT STEADY.
== END 2018-10-18 18:22 | disposition home or self-care (01) ==
PROVIDERS: Emergency Provider Emergency Medicine; Family Provider Family Medicine; PCP Family Medicine
DX: N13.2 Hydronephrosis with renal and ureteral calculous obstruction (principal); Z87.442 Personal history of urinary calculi
CPT/HCPCS: 74176; 80048; 80076; 81001; 83690; 85025; 87086; 87088; 96361; 96374; 96375; 99284; J7030; J2405

== ENCOUNTER 2018-10-22 11:47 | Day surgery (SDC) | payer MEDICAID, SELFPAY ==
[2018-10-22 12:10] VITALS: BP 119/74; PULSE 87; RESP 16; TEMP 36.2; O2SAT 97; BMI 39.6
--- NOTE | 2018-10-22 12:49 | PCM.OPRPT ---
Problem List (1) Left ureteral calculus Status: Acute (2) Hydronephrosis Status: Acute Report of Operation Date of Procedure: 10/22/18 Pre-Operative Diagnosis: left ureteral calculus and hydronephrosis Post-Operative Diagnosis: same, and urinary tract infection. Surgery/Procedure Performed:: cystoscopy, left ureteral stent insertion. Description of Surgical Findings:: the wire was inserted into the left renal pelvis, and infected urine emptied into the bladder. Type of Anesthesia:: General Description of Procedure: The patient was taken to the operating room placed on the operating room table. Anesthesia monitored the head, neck, airway, IV access and vital signs throughout the case. Once anesthesia was appropriately administered the patient was prepped and draped in usual sterile fashion. A cystourethroscopy was then performed revealing no abnormalities of the mucosa. The left ureteral orifice was identified and a 0.035 Glidewire was passed into the renal pelvis. Purulent urine immediately drained into the urinary bladder and the decision was made to place a ureteral stent and send urine for culture. This was done without difficulty, and a 6 Albanian 1 to 4 cm double-J stent was used. The urine was sent for culture. The patient was then awakened and taken to the recovery room in good condition. There were no complications during the procedure. Grafts/Implants Used: JJ stent - Complications none - Admit VTE Documentation VTE Present on Admission: Yes VTE Mechan Device Prophylaxis: SCD's VTE Pharm Prophylaxis ordered?: No Reason prophylaxis not ordered:: Treatment Not Indicated
--- NOTE | 2018-10-22 12:52 | DCINST_ITS ---
Discharge Diet: No Restrictions Discharge Activity: May not drive while taking narcotic pain medications. Call your doctor if you observe: Fever of 101 or Higher, Inability to urinate, Shortness of breath, Chest pain, Calf discomfort, Uncontrolled pain Allergies/Adverse Reactions: Allergies citalopram hydrobromide [From Celexa] Allergy (Severe, Verified 10/21/18 10:25) Anaphylaxis moxifloxacin HCl [From Avelox] Allergy (Intermediate, Verified 10/21/18 10:25) Hives doxycycline Allergy (Verified 10/21/18 10:25) Unknown naproxen sodium [From Aleve] Allergy (Verified 10/21/18 10:25) Hives prednisone Allergy (Verified 10/21/18 10:25) MENTAL STATUS CHANGE Medications to take at Discharge Cetirizine HCl [Zyrtec] 10 mg PO DAILY 07/29/16 Pregabalin [Lyrica] 75 mg PO DAILY 02/22/17 Cholecalciferol (Vitamin D3) [Vitamin D3] 2,000 unit PO DAILY 04/13/17 Folic Acid 1 mg PO DAILY@0800 04/13/17 Atorvastatin Calcium 20 mg PO QHS 07/20/17 melatonin 5 mg capsule 5 mg PO QHS PRN PRN 10/20/17 montelukast 10 mg tablet 10 mg PO QPM 10/20/17 Magnesium Oxide [Magnesium] 400 mg PO DAILY 11/09/17 albuterol sulfate HFA 90 mcg/actuation aerosol inhaler 2 puff INHALATION Q4H PRN g 07/06/18 aspirin 81 mg tablet,delayed release 81 mg PO DAILY 07/06/18 cabergoline 0.5 mg tablet 0.5 mg PO QWEEK tab 07/06/18 furosemide 20 mg tablet 20 mg PO DAILY PRN 07/06/18 methotrexate sodium 25 mg/mL injection solution 20 mg SC QWEEK ml 07/06/18 nitroglycerin 0.4 mg sublingual tablet 0.4 mg SUBLINGUAL Q5-15M PRN 07/06/18 vitamin B complex tablet 1 tab PO DAILY 07/06/18 Cephalexin [Keflex] 500 mg PO Q6 #40 cap 10/18/18 Ondansetron [Zofran] 8 mg PO Q8H PRN PRN #12 tablet 10/18/18 Tamsulosin HCl [Flomax] 0.4 mg PO DAILY #7 cap 10/18/18 Methylphenidate HCl [Concerta] 36 mg PO DAILY 10/21/18 Oxycodone HCl/Acetaminophen [Percocet 5-325] 1 - 2 tablet PO Q4H PRN PRN 10/21/18 Phenazopyridine HCl [Pyridium] 200 mg PO TID PRN PRN 7 Days #30 tab 10/22/18 The following prescriptions were given: Phenazopyridine HCl [Pyridium] 200 mg PO TID PRN PRN 7 Days #30 tab PRN Reason: Bladder Spasms Primary Care Physician: Glenn Jefferson MD [Primary Care Provider] - Test Results: Test results from this visit will be discussed in further detail at your follow- up appointment, if applicable. Please Follow Up With: Shaila Davis MD When: the office will call you to schedule the next procedure. Proposed Discharge Date: 10/22/18
[2018-10-22 15:10] VITALS: BP 100/62; BP 119/74; PULSE 82; RESP 16; TEMP 36.6; O2SAT 96
[2018-10-22 15:15] VITALS: BP 105/64; BP 119/74; PULSE 85; RESP 16; O2SAT 93
[2018-10-22 15:30] VITALS: BP 101/50; BP 119/74; PULSE 85; RESP 16; O2SAT 96
[2018-10-22 15:45] VITALS: BP 119/74; BP 98/70; PULSE 82; RESP 16; TEMP 36.3; O2SAT 93
[2018-10-22] MEDS: Acetaminophen 325 MG Tablet PO (16:50)
[2018-10-22] MEDS: oxyCODONE 5 MG Tablet PO (16:51)
[2018-10-22 17:20] VITALS: BP 119/74; BP 128/84; PULSE 88; RESP 18; TEMP 36.3; O2SAT 98
== END 2018-10-22 17:21 | disposition home or self-care (01) ==
LOC: SDC 11:48 → AC 11:54
PROVIDERS: Family Provider Family Medicine; PCP Family Medicine; Referring Provider Urology; Visit Provider Urology
PROC: 0TJ98ZZ Inspection of Ureter, Via Natural or Artificial Opening Endoscopic (ICD-10-PCS; CPT 52352; principal; 2018-10-22 13:10)
DX: N13.6 Pyonephrosis (principal); F32.9 Major depressive disorder, single episode, unspecified; F41.9 Anxiety disorder, unspecified; E78.00 Pure hypercholesterolemia, unspecified; K21.9 Gastro-esophageal reflux disease without esophagitis; K44.9 Diaphragmatic hernia without obstruction or gangrene; Z79.899 Other long term (current) drug therapy; J45.909 Unspecified asthma, uncomplicated; Z86.718 Personal history of other venous thrombosis and embolism; R01.1 Cardiac murmur, unspecified; K58.9 Irritable bowel syndrome, unspecified; M06.9 Rheumatoid arthritis, unspecified
CPT/HCPCS: 00910; 52332; 76000; 87086; J7120; C1769; C2617; J2405

== ENCOUNTER → 2018-10-25 | Outpatient (CLI) | payer MEDICAID, SELFPAY ==
[2018-10-22 12:10] VITALS: BMI 39.6
--- NOTE | 2018-10-25 14:13 | VDLE_ITS ---
Reason For Study: Edema RIGHT LEFT GSV is normal. GSV is normal. CFV is compressible, spontaneous, phasic, CFV is compressible, spontaneous, phasic, competent and demonstrates normal competent, and demonstrates normal augmentation. augmentation. FV is compressible, spontaneous, phasic, FV is compressible, spontaneous, phasic, competent and demonstrates normal competent and demonstrates normal augmentation. augmentation. POP V is compressible, spontaneous, phasic, POP V is compressible, spontaneous, phasic, competent and demonstrates normal competent and demonstrates normal augmentation. augmentation. T/P Trunk is compressible. T/P Trunk is compressible. PTV is compressible. PTV is compressible. RT PerV is compressible. LT PerV is compressible. Procedure Exam performed in department. A preliminary report was called and/or faxed to Susan. Interpretation Summary Deep veins of the lower extremities are bilaterally patent and compressible segmentally. There is no evidence of deep vein thrombosis on either side. Valvular competence appears intact within the proximal deep venous systems bilaterally. The greater saphenous veins appear bilaterally patent and compressible segmentally. Ordering Physician: Shaila Davis Referring Physician: Glenn Jefferson Performed By: Gabriella Thompson RVT
== END | disposition home or self-care (01) ==
LOC: CVS 14:07
PROVIDERS: Family Provider Family Medicine; PCP Family Medicine; Referring Provider Urology; Visit Provider Urology
DX: R60.0 Localized edema (principal)
CPT/HCPCS: 93970

== ENCOUNTER 2018-11-05 06:32 | Day surgery (SDC) | payer MEDICAID, SELFPAY ==
[2018-11-04 16:11] VITALS: BMI 39.6
[2018-11-05] VITALS (7 sets, daily range): BP systolic 109–135; BP diastolic 45–103; PULSE 82–98; RESP 16–18; TEMP 36.4–36.8; O2SAT 90–100; BMI 38.4
--- NOTE | 2018-11-05 08:53 | DCINST_ITS ---
Discharge Diet: No Restrictions Discharge Activity: May not drive while taking narcotic pain medications., May Shower Call your doctor if you observe: Fever of 101 or Higher, Inability to urinate, Inability to have a bowel movement, Shortness of breath, Chest pain, Calf discomfort, Uncontrolled pain Allergies/Adverse Reactions: Allergies citalopram hydrobromide [From Celexa] Allergy (Severe, Verified 11/05/18 06:53) Anaphylaxis moxifloxacin HCl [From Avelox] Allergy (Intermediate, Verified 11/05/18 06:53) Hives doxycycline Allergy (Verified 11/05/18 06:53) Unknown naproxen sodium [From Aleve] Allergy (Verified 11/05/18 06:53) Hives prednisone Allergy (Verified 11/05/18 06:53) MENTAL STATUS CHANGE Medications to take at Discharge RX: Cetirizine HCl [Zyrtec] 10 mg PO DAILY 07/29/16 RX: Pregabalin [Lyrica] 75 mg PO DAILY 02/22/17 RX: Cholecalciferol (Vitamin D3) [Vitamin D3] 2,000 unit PO DAILY 04/13/17 RX: Folic Acid 1 mg PO DAILY@0800 04/13/17 RX: Atorvastatin Calcium 20 mg PO QHS 07/20/17 melatonin 5 mg capsule 5 mg PO QHS PRN PRN 10/20/17 montelukast 10 mg tablet 10 mg PO QPM 10/20/17 RX: Magnesium Oxide [Magnesium] 400 mg PO DAILY 11/09/17 albuterol sulfate HFA 90 mcg/actuation aerosol inhaler 2 puff INHALATION Q4H PRN g 07/06/18 aspirin 81 mg tablet,delayed release 81 mg PO DAILY 07/06/18 cabergoline 0.5 mg tablet 0.5 mg PO QWEEK tab 07/06/18 furosemide 20 mg tablet 20 mg PO DAILY PRN 07/06/18 methotrexate sodium 25 mg/mL injection solution 20 mg SC QWEEK ml 07/06/18 nitroglycerin 0.4 mg sublingual tablet 0.4 mg SUBLINGUAL Q5-15M PRN 07/06/18 vitamin B complex tablet 1 tab PO DAILY 07/06/18 RX: Cephalexin [Keflex] 500 mg PO Q6 #40 cap 10/18/18 RX: Methylphenidate HCl [Concerta] 36 mg PO DAILY 10/21/18 RX: Oxycodone HCl/Acetaminophen [Percocet 5-325] 1 - 2 tab PO Q4H PRN PRN 10/21/18 Primary Care Physician: Glenn Jefferson MD [Primary Care Provider] - Test Results: Test results from this visit will be discussed in further detail at your follow- up appointment, if applicable. Please Follow Up With: Shaila Davis MD When: call for appt next week Proposed Discharge Date: 11/05/18
[2018-11-05] MEDS: Cefazolin 2 GM in 0.9% Normal Saline 100 ML IV (08:54)
--- NOTE | 2018-11-05 08:54 | OP.PCM_ITS ---
Problem List (1) Left ureteral calculus Status: Acute Comment: She is scheduled for surgery tomorrow at [place] to remove the calculus. Report of Operation Date of Procedure: 11/05/18 Pre-Operative Diagnosis: Left renal calculus Post-Operative Diagnosis: Same Surgery/Procedure Performed:: Extracorporal shockwave lithotripsy, left renal Type of Anesthesia:: General Description of Procedure: The patient is a 48-year-old female who underwent a left ureteral stent insertion for an obstructing stone and infection approximately 2 weeks ago. She now presents for definitive treatment of her left renal calculus. Informed consent was obtained. Patient was taken to the operating room and placed on the lithotripsy table. Anesthesia monitored the head, neck, airway, IV access and vital signs throughout the case. Once anesthesia was appropriately administered the patient was appropriately aligned with a lithotripter. The stone was clearly visible. 3000 shocks were applied to the stone and appeared to be well fragmented at the conclusion of the case. The patient was then awakened and taken to the recovery room in good condition. There were no complications during the procedure. Please note that this report was dictated using [employer] software and may not be exactly correct. Grafts/Implants Used: None - Complications None - Admit VTE Documentation VTE Present on Admission: Yes VTE Mechan Device Prophylaxis: SCD's VTE Pharm Prophylaxis ordered?: No Reason prophylaxis not ordered:: Treatment Not Indicated
[2018-11-05 11:54] LABS: Absolute Lymphocyte Count 0.71 X10^3/ul (0.83-4.51); Absolute Neutrophil Count 3.6 X10^3/uL (2.0-7.7); Basophil# 0.02 X10^3/uL; Basophil% 0.4 % (0-1); Eosinophil# 0.11 X10^3/uL; Eosinophils% 2.4 % (0-5); Hematocrit 40.2 % (37-47); Hemoglobin 13.4 g/dl (12.0-15.0); Lymphocyte # 0.71 X10^3/ul (4.0); Lymphocyte % 15.8 % (19-41); Mean Corp Hgb Conc 33.3 g/gl (32-36); Mean Corpuscular Hgb 29.1 pg (27.0-32.0); Mean Corpuscular Volume 87.2 fL (81-99); Mean Platelet Vol. 12.3 fl (6.2-12.0); Monocyte% 2.2 % (0-10); Neutrophil # 3.56 X10^3/uL (2.7-7.7); Neutrophil % 79.2 % (47-70); Platelet Count 161 K/mm3 (150-450); RBC Distribution Width CV 14.1 % (11.6-14.6); RBC Distribution Width SD 43.7 fl (35.1-43.9); Red Blood Count 4.61 M/mm3 (4.2-5.4); White Blood Count 4.5 K/mm3 (4.4-11.0)
[2018-11-05 11:57] LABS: POSITIVE COUNT NO; POSITIVE DIFFERENTIAL NO; POSITIVE MORPHOLOGY NO
[2018-11-05 12:18] LABS: Erythrocyte Sedimentation Rate 2 mm/hr (0-20)
[2018-11-05 12:43] LABS: Rheumatoid Factor < 10.0 IU/mL (<15)
== END 2018-11-05 11:12 | disposition home or self-care (01) ==
LOC: SDC 06:33 → AC 06:33
PROVIDERS: Family Medicine; Family Provider Family Medicine; PCP Family Medicine; Referring Provider Urology; Visit Provider Urology
PROC: (CPT 50590; principal; 2018-11-05 07:50)
DX: N20.0 Calculus of kidney (principal); Z79.899 Other long term (current) drug therapy; F32.9 Major depressive disorder, single episode, unspecified; Z79.82 Long term (current) use of aspirin; F17.200 Nicotine dependence, unspecified, uncomplicated; E78.00 Pure hypercholesterolemia, unspecified; F41.9 Anxiety disorder, unspecified; M54.5 Low back pain; Z86.718 Personal history of other venous thrombosis and embolism; M06.9 Rheumatoid arthritis, unspecified; K58.9 Irritable bowel syndrome, unspecified
CPT/HCPCS: 00873; 50590; 36415; 85025; 85652; 86431; J7120; J2405

== ENCOUNTER → 2018-11-10 | Outpatient (CLI) | payer MEDICAID, SELFPAY ==
[2018-11-05 06:49] VITALS: BMI 38.4
--- NOTE | 2018-11-10 11:41 | RAD_ITS ---
STUDY: X-RAY - ABDOMEN/PELVIS REASON FOR EXAM: Female, 48 years old. Kidney stones TECHNIQUE: Two AP supine views of the abdomen and pelvis. COMPARISON: None. FINDINGS: Normal visualized lung bases. There is an unremarkable bowel gas pattern. There is no demonstrated free abdominal air. There is a small left nephrolith in the lower pole measuring 3 mm. Left-sided ureteral stent is noted. Normal soft tissue structures. Normal visualized osseous structures. RAD/Abdomen Single View IMPRESSION: As above Electronically Signed: Davonte Muñoz DO at 9:58 EDT Tel , Service support ,
== END | disposition home or self-care (01) ==
LOC: MTRAD 11:40
PROVIDERS: Family Provider Family Medicine; PCP Family Medicine; Referring Provider Urology; Visit Provider Urology
DX: N20.0 Calculus of kidney (principal)
CPT/HCPCS: 74018

== ENCOUNTER → 2019-01-06 | Outpatient (CLI) | payer MEDICAID, SELFPAY ==
[2018-11-24 15:56] VITALS: BMI 38.4
--- NOTE | 2019-01-06 16:13 | BD_ITS ---
STUDY: DUAL ENERGY X-RAY ABSORPTIOMETRY / DXA REASON FOR EXAM: Female, 48 years old. Menopause. Daily prednisone use. Loss of height. TECHNIQUE: Bone Mineral Density (BMD) measurements of lumbar spine and bilateral hips were obtained. COMPARISON: None. FINDINGS: Lumbar Spine (L1-L4): g/cm2 (1.018) / T-score (-1.4) / Z-score (-1.1) Findings are suggestive of osteopenia with a low fracture risk. Left Femur Total: g/cm2 (1.109) / T-score (0.8) / Z-score (1.2) Left Femoral Neck: g/cm2 (1.126) / T-score (0.6) / Z-score (1.3) Right Femur Total: g/cm2 (1.050) / T-score (0.3) / Z-score (0.7) Right Femoral Neck: g/cm2 (1.059) / T-score (0.2) / Z-score (0.8) BD/Dexa Bone Density Study IMPRESSION: The patient is considered osteopenic as outlined below according to World Patricio Organization (WHO) criteria with a low fracture risk. Reference Information: The T-score is the number of standard deviations above or below the standard which is normal for young adults at their peak bone mineral density. The World Health Organization (WHO) interprets the T-scores as follows: Above -1 Normal bone density Between -1 and -2.5 Osteopenia Equal to / or below -2.5 Osteoporosis As a practical clinical guideline, osteopenia may be graded as follows: Mild -1 through -1.5 Moderate -1.6 through -2.0 Severe -2.1 through -2.4 The Z-score is the number of standard deviations above or below age-matched controls. A Z-score of less than -1.5 would be considered abnormal. References: 1. NIH Osteoporosis and Related Bone Diseases http://www.osteo.org 2. International Society for Clinical Densitometry http://www.iscd.org 3. National Osteoporosis Foundation http://www.nof.org Electronically Signed: Manuel Bustamante, at 14:44 EDT , Service support ,
== END | disposition home or self-care (01) ==
LOC: OPBD 16:10
PROVIDERS: Family Provider Family Medicine; PCP Family Medicine
DX: Z79.52 Long term (current) use of systemic steroids (principal)
CPT/HCPCS: 77080

== ENCOUNTER 2019-04-10 00:28 | Emergency (ER) | payer MEDICAID, SELFPAY ==
[2018-11-24 15:56] VITALS: BMI 38.4
[2019-04-10 00:29] VITALS: BP 133/81; PULSE 109; RESP 15; TEMP 36.7; O2SAT 98; BMI 37.9
[2019-04-10 00:39] VITALS: O2SAT 98
--- NOTE | 2019-04-10 00:48 | RAD_ITS ---
STUDY: X-RAY CHEST REASON FOR EXAM: Female, 49 years old. Pain. TECHNIQUE: PA and lateral views of the chest. COMPARISON: 11/09/2017. FINDINGS: The lungs are clear and expanded. There is no demonstrated pleural abnormality. Normal size heart. Normal mediastinum and angelina. Normal visualized pulmonary arteries. There is atherosclerotic tortuosity of the aortic arch and descending thoracic aorta. Normal visualized thoracic spine. Normal visualized ribs, clavicles, and shoulders. There is no demonstrated abnormality of the visualized soft tissue structures of the upper abdomen. RAD/Chest 1 View (Portable) IMPRESSION: Normal x-ray examination of the chest for age. Electronically Signed: Alize Sim MD at 1:24 EDT , Service support ,
--- NOTE | 2019-04-10 00:49 | CT_ITS ---
STUDY: CT ABDOMEN AND PELVIS WITHOUT CONTRAST REASON FOR EXAM: Female, 49 years old. Pain. RADIATION DOSAGE (If Supplied By Facility): CTDIvol = ( 23.81 ) mGy, DLP = ( 1213.36 ) mGycm TECHNIQUE: Transaxial images were obtained from the dome of the diaphragm to the symphysis pubis without oral contrast, and without intravenous contrast. Sagittal and coronal images were reconstructed. Individualized dose optimization techniques were used for this CT. COMPARISON: None. FINDINGS: There is minimal posterior dependent atelectasis, remainder of the lung bases are clear. The visualized portions of the heart are within normal limits. Previously thought liver lesion within the left liver lobe appears to represent volume averaging from the gallbladder fundus. No distinct liver lesion is seen. Normal gallbladder and extrahepatic biliary system. Normal spleen. Normal pancreas. Normal bilateral adrenal glands. 1.2 mm stone in the lower pole of the right kidney otherwise normal right kidney. 1.1 mm stone seen within the middle pole and 1 mm stone within the lower pole otherwise normal left kidney. There is mild hiatal hernia. Normal small intestine. Normal colon. The appendix is visualized and appears normal. There is mild atherosclerotic calcification of the abdominal aorta, without a demonstrated aneurysm. Normal inferior vena cava. Normal retroperitoneum. Normal urinary bladder. There is absence of the uterus consistent with a prior hysterectomy. Normal abdominal wall. Normal osseous structures. CT/Abdomen/Pelvis without Cont IMPRESSION: Nonobstructive punctate bilateral intrarenal stones. Remainder of abdominal viscera are unremarkable. No acute appendicitis. No bowel obstruction. Electronically Signed: Alize Sim MD at 4:01 EDT , Service support ,
--- NOTE | 2019-04-10 00:49 | EKG12_ITS ---
Test Reason : SOB Blood Pressure : / mmHG Vent. Rate : 097 BPM Atrial Rate : 097 BPM P-R Int : 156 ms QRS Dur : 090 ms QT Int : 378 ms P-R-T Axes : 036 -45 036 degrees QTc Int : 480 ms Normal sinus rhythm Left anterior fascicular block Prolonged QT Abnormal ECG Confirmed by CAROLANN FOWLER, SHIRLEY ([id number]), book editor DONNIE MEDINA ([id number]) on 04/12/2019 11:00:39 AM Referred By: MERLYN Confirmed By:SHIRLEY VUONG MD
[2019-04-10 00:54] LABS: Mucous, Urine 0 SEEN /hpf (<or=2+); White Blood Cells 0 SEEN /hpf (0-5)
[2019-04-10 01:03] LABS: Color, Urine Yellow (Yellow); Glucose, Dipstick Normal (Normal); Ketone-Dipstick Negative (Negative); Leukocyte Esterase-Dipstick Negative /ul (Negative); Nitrite-Dipstick Negative (Negative); Occult Blood-Urine 25 /ul (Negative); Protein-Dipstick Negative (Negative); Specific Gravity, Urine 1.015 (1.002-1.030); Urine Bilirubin Dipstick Negative (Negative); Urine Clarity Clear (Clear); Urine Urobilinogen Normal (Normal); Urine pH 6.5 (5.0 - 8.0)
[2019-04-10 01:10] VITALS: PULSE 101; RESP 10
[2019-04-10 01:10] LABS: Bacteria RARE /hpf (None Seen); Red Blood Cells-Urine 0-5 SEEN /hpf (0-5); Squamous Epithelial Cells - UA 0-5 SEEN /hpf (5-10)
[2019-04-10] MEDS: Ipratropium/Albuterol Sulfate 3 ML AMPUL.NEB INHALATION (01:10)
[2019-04-10 01:13] LABS: Absolute Lymphocyte Count 1.76 X10^3/uL (0.83-4.51); Absolute Neutrophil Count 4.9 X10^3/uL (2.0-7.7); Basophil# 0.03 X10^3/uL; Basophil% 0.4 % (0-1); Eosinophil# 0.06 X10^3/uL; Eosinophils% 0.8 % (0-5); Hematocrit 43.3 % (37-47); Hemoglobin 14.5 g/dL (12.0-15.0); Lymphocyte # 1.76 X10^3/ul (4.0); Lymphocyte % 24.4 % (19-41); Mean Corp Hgb Conc 33.5 g/dL (32-36); Mean Corpuscular Hgb 30.1 pg (27.0-32.0); Mean Corpuscular Volume 89.8 fL (81-99); Monocyte# 0.47 X10^3/uL; Monocyte% 6.5 % (0-10); NRBC Flagged by Analyzer 0 % (0-5); Neutrophil # 4.86 X10^3/uL (2.7-7.7); Neutrophil % 67.6 % (47-70); Platelet Count 198 K/mm3 (150-450); RBC Distribution Width CV 13.4 % (11.6-14.6); RBC Distribution Width SD 44.1 fl (35.1-43.9); Red Blood Count 4.82 M/mm3 (4.2-5.4); White Blood Count 7.2 K/mm3 (4.4-11.0)
[2019-04-10 01:30] VITALS: BP 119/83; PULSE 103; RESP 16; O2SAT 92
[2019-04-10 01:30] LABS: Anion Gap 5 (5-15); BUN 9 mg/dL (7-18); BUN/Creat Ratio 11.5 RATIO (10-20); Chloride 112 mmol/L (98-107); Creatinine, Serum 0.78 mg/dL (0.55-1.02); EST Glomerular Filtration Rate 84 mL/min (>60); Est Glom Filt Rate - Afr Amer 101 mL/min (>60); Estimated Creatinine Clearance 88.98 ml/min; Glucose 110 mg/dL (74-106); Potassium 3.9 mmol/L (3.5-5.1); Sodium Level 143 mmol/L (136-145)
--- NOTE | 2019-04-10 01:31 | ED.DCSUM_ITS ---
- ER Visit Summary Date of Service: 04/10/19 Chief Complaint: [Shortness of breath] History of Present Illness: The patient is a 49 F [presents emergency department with multiple complaints today. Patient complains of shortness of breath for the last 3 days. She had a slight cough. She denies any fevers. Patient says she has been under increased stress of late and she is been smoking a lot. Patient at times feels like her pulse is higher than it should be even at rest. Patient does have history of anxiety. Patient also complains of intermittent chest tightness and pain in her jaw which is similar to what she gets when she has anxiety. Patient also has history of kidney stones and has been having flank pain off and on over the last 5 to 6 months on the right side. Patient has history of hypertension and bipolar disorder. Patient has history of tachycardia and ADHD and anxiety.] Physical Examination: [HEENT-PERRLA, EOMI. Cranial nerves II through XII grossly intact. TMs clear. Mucous membranes moist. No adenopathy. Cardiovascular-regular rate and rhythm without murmur or ectopy Lungs-clear to auscultation, chest wall stable without crepitus or subcu emphysema Abdomen-normoactive bowel sounds, soft, nontender, no rebound or rigidity, no peritoneal signs. Patient does have CVA tenderness on the right. Extremities-intact ?4, normal range of motion, normal pulses, atraumatic] Test Results: [CBC with differential obtained was normal. Chemistries normal. Troponin was less than 0.015. Urinalysis normal. EKG obtained showed a sinus rhythm with a ventricular rate of 77 bpm with a left anterior fascicular block otherwise nothing acute.] D-dimer on presentation was elevated 0.62. CT of the chest obtained showed no PE or dissection. She had a small hiatal hernia noted. CT flank showed essentially nothing acute. Emergency Department Course and Treatment: [] Treatment Plan: [Patient will be given a prescription for PRN Ativan for suspected anxiety. Etiology of patient's dyspnea and flank pain unclear. Follow-up with her primary care physician in 3 to 5 days.] Disposition: [Discharged home in stable condition.] Impression: [Dyspnea-etiology uncertain Flank pain] This note was generated with [employer] software. It may contain incorrect words, spelling, and punctuation that were not noted in review of the chart prior to signing ED Disposition - Plan for ED Patient: Referrals: Glenn Jefferson MD [Primary Care Provider] -
[2019-04-10 02:10] LABS: D-Dimer Quantitative (DVT/PE) 0.62 FEU/ug/m (0.27-0.49)
--- NOTE | 2019-04-10 02:11 | CT_ITS ---
STUDY: CTA CHEST REASON FOR EXAM: Female, 49 years old. Shortness of breath, elevated d-dimer. RADIATION DOSAGE (If Supplied By Facility): CTDIvol = ( 15.04 ) mGy, DLP = ( 520.07 ) mGycm TECHNIQUE: The examination was performed with the intravenous administration of IV 100mL [id number]-370 100ML. Post-processing of the angiographic images was performed, with multiplanar reformation and 3D reconstruction. Individualized dose optimization techniques were used for this CT. COMPARISON: 07/29/2016. FINDINGS: Exam is slightly limited due to a partially missed bolus with decreased opacification of the pulmonary arteries in relation to the aorta. Normal enhancement of the main pulmonary artery and right and left pulmonary arteries. Normal enhancement of the bilateral peripheral pulmonary arteries. There is no demonstrated pulmonary embolism. There is atherosclerotic calcification of the aortic arch with tortuosity. There is no demonstrated aortic dissection. Normal heart and pericardium. Normal mediastinum. Normal hilar regions. Normal visualized trachea and bronchi. The lungs are well expanded. There is minimal posterior dependent atelectasis, otherwise normal pulmonary parenchyma. Normal pleura. Normal chest wall structures. There are degenerative changes of thoracic spine. Upper abdomen: There is a low-attenuation structure within the left liver lobe measuring 1.5 cm just anterior to the gallbladder fossa and most compatible with benign process given absence of known neoplasm. This is stable since 07/29/2016. There is a mild hiatal hernia. CT/CTA Chest W/WO Contrast IMPRESSION: Negative CTA chest examination, without a demonstrated pulmonary embolism or arterial dissection. Mild posterior dependent atelectasis, otherwise no acute cardiopulmonary process seen. Mild hiatal hernia. Electronically Signed: Alize Sim MD at 3:56 EDT , Service support ,
--- NOTE | 2019-04-10 04:08 | ED.DEP ---
ED Disposition - Plan for ED Patient: Instructions: ED Dyspnea, FLANK PAIN, Uncertain Cause Prescriptions: Lorazepam [Ativan] 1 mg PO TID PRN #10 tab PRN Reason: Anxiety Prescription Printed Referrals: Glenn Jefferson MD [Primary Care Provider] - 3-5 Days
[2019-04-10 04:30] VITALS: BP 114/71; PULSE 86; RESP 18; O2SAT 99
== END 2019-04-10 04:33 | disposition home or self-care (01) ==
PROVIDERS: Emergency Provider Emergency Medicine; Family Provider Family Medicine; PCP Family Medicine
DX: R06.00 Dyspnea, unspecified (principal); R10.9 Unspecified abdominal pain; F17.200 Nicotine dependence, unspecified, uncomplicated; F41.9 Anxiety disorder, unspecified; I10 Essential (primary) hypertension; F31.9 Bipolar disorder, unspecified; F90.9 Attention-deficit hyperactivity disorder, unspecified type; Z79.899 Other long term (current) drug therapy; Z87.442 Personal history of urinary calculi
CPT/HCPCS: 36415; 71045; 71275; 74176; 80048; 81001; 84484; 85025; 85379; 93005; 94640; 99285; Q9967; A4216

== ENCOUNTER → 2019-04-19 17:02 | Outpatient (CLI) | payer MEDICAID, SELFPAY ==
[2019-04-14 16:37] VITALS: BMI 37.9
[2019-04-19 18:02] LABS: Hematocrit 39.4 % (37-47); Hemoglobin 13.1 g/dL (12.0-15.0); Mean Corp Hgb Conc 33.2 g/dL (32-36); Mean Corpuscular Hgb 29.9 pg (27.0-32.0); Mean Platelet Vol. 11.7 fl (6.2-12.0); Platelet Count 171 K/mm3 (150-450); RBC Distribution Width CV 13.9 % (11.6-14.6); RBC Distribution Width SD 45.8 fl (35.1-43.9); Red Blood Count 4.38 M/mm3 (4.2-5.4); White Blood Count 6.3 K/mm3 (4.4-11.0)
[2019-04-19 18:09] LABS: Color, Urine Amber (Yellow); Glucose, Dipstick Normal (Normal); Ketone-Dipstick Negative (Negative); Leukocyte Esterase-Dipstick 100 /ul (Negative); Nitrite-Dipstick Positive (Negative); Occult Blood-Urine 250 /ul (Negative); Protein-Dipstick 100 mg/dl (Negative); Urine Bilirubin Dipstick Negative (Negative); Urine Clarity Cloudy (Clear); Urine Urobilinogen Normal (Normal)
[2019-04-19 18:34] LABS: Protein, Urine (Random) 81.3 mg/dL (<11.9); Protein:Creat Ratio 878 mg/g CRE (0-200)
[2019-04-19 18:44] LABS: Albumin, Serum 3.4 g/dL (3.2-5.0); BUN 11 mg/dL (7-18); BUN/Creat Ratio 15.2 RATIO (10-20); Calcium,Total 9.1 mg/dL (8.5-10.1); Chloride 110 mmol/L (98-107); Creatinine, Serum 0.72 mg/dL (0.55-1.02); EST Glomerular Filtration Rate 92 mL/min (>60); Est Glom Filt Rate - Afr Amer 111 mL/min (>60); Glucose 98 mg/dL (74-106); Phosphorus 3.8 mg/dL (2.5-4.9); Potassium 3.6 mmol/L (3.5-5.1); Sodium Level 144 mmol/L (136-145)
== END ==
PROVIDERS: Family Provider Family Medicine; PCP Family Medicine; Referring Provider Internal Medicine Nephrology; Visit Provider Internal Medicine Nephrology
DX: N20.0 Calculus of kidney (principal)
CPT/HCPCS: 36415; 80069; 81002; 82043; 82570; 84156; 85027

== ENCOUNTER → 2019-04-21 15:12 | Outpatient (CLI) | payer MEDICAID, SELFPAY ==
[2019-04-14 16:37] VITALS: BMI 37.9
[2019-04-21 18:30] LABS: Color, Urine Yellow (Yellow); Glucose, Dipstick Normal (Normal); Ketone-Dipstick Negative (Negative); Leukocyte Esterase-Dipstick 25 /ul (Negative); Nitrite-Dipstick Negative (Negative); Occult Blood-Urine 150 /ul (Negative); Protein-Dipstick Negative (Negative); Urine Bilirubin Dipstick Negative (Negative); Urine Clarity Sl. Cloudy (Clear); Urine Urobilinogen Normal (Normal)
== END ==
PROVIDERS: Family Provider Family Medicine; PCP Family Medicine; Referring Provider Internal Medicine Nephrology; Visit Provider Internal Medicine Nephrology
DX: N39.0 Urinary tract infection, site not specified (principal)
CPT/HCPCS: 81002; 87086; 87088

== ENCOUNTER → 2019-04-28 16:57 | Outpatient (CLI) | payer MEDICAID, SELFPAY ==
[2019-04-14 16:37] VITALS: BMI 37.9
[2019-04-28 17:01] LABS: Bacteria 0 SEEN /hpf (None Seen); Squamous Epithelial Cells - UA 0 SEEN /hpf (5-10)
[2019-04-28 17:36] LABS: Color, Urine Yellow (Yellow); Glucose, Dipstick Normal (Normal); Ketone-Dipstick 5 mg/dl (Negative); Leukocyte Esterase-Dipstick 25 /ul (Negative); Nitrite-Dipstick Negative (Negative); Occult Blood-Urine 25 /ul (Negative); Protein-Dipstick 15 mg/dl (Negative); Specific Gravity, Urine 1.025 (1.002-1.030); Urine Bilirubin Dipstick Negative (Negative); Urine Clarity Clear (Clear); Urine Urobilinogen 1 mg/dl (Normal)
[2019-04-28 17:49] LABS: Calcium Oxalate Crystals Ur 1+ /hpf (<or=2+); Hyaline Cast 0-5 SEEN /lpf (0-5); Red Blood Cells-Urine 0-5 SEEN /hpf (0-5); White Blood Cells 0-5 SEEN /hpf (0-5)
[2019-04-28 17:50] LABS: Mucous, Urine 1+ /hpf (<or=2+)
== END ==
PROVIDERS: Family Provider Family Medicine; PCP Family Medicine; Referring Provider Internal Medicine Nephrology; Visit Provider Internal Medicine Nephrology
DX: R31.9 Hematuria, unspecified (principal)
CPT/HCPCS: 81001; 87086

== ENCOUNTER 2019-05-02 20:55 | Emergency (ER) | payer MEDICAID, SELFPAY ==
[2019-04-14 16:37] VITALS: BMI 37.9
[2019-05-02 20:56] VITALS: BP 163/78; PULSE 92; RESP 20; TEMP 36.6; O2SAT 95; BMI 38.0
--- NOTE | 2019-05-02 21:43 | CT_ITS ---
STUDY: CT ABDOMEN AND PELVIS WITH AND WITHOUT CONTRAST REASON FOR EXAM: Female, 49 years old. Chills, decreased urination, flank pain, dizziness, nausea x3 weeks RADIATION DOSAGE (If Supplied By Facility): CTDIvol = ( 26.53 ) mGy, DLP = ( 4518.23 ) mGycm TECHNIQUE: Transaxial images were obtained from the dome of the diaphragm to the symphysis pubis without oral contrast. IV 100mL Isovue-370 100ML was administered. Sagittal and coronal images were reconstructed. Individualized dose optimization techniques were used for this CT. COMPARISON: Previous study of 04/10/2019 FINDINGS: The visualized lung bases are unremarkable. The visualized portions of the heart are within normal limits. Normal liver. Normal gallbladder and extrahepatic biliary system. Normal spleen. Normal pancreas. Normal bilateral adrenal glands. There is a nonobstructing 1 mm calculus of the lower pole of the right kidney. There is a nonobstructing 1 mm calculus of the lower pole of the left kidney. Normal visualized stomach. Normal small intestine. Normal colon. The appendix is visualized and appears normal. Normal abdominal aorta. Normal inferior vena cava. Normal retroperitoneum. Normal urinary bladder. There is absence of the uterus consistent with a prior hysterectomy. Normal abdominal wall. Normal osseous structures. CT/CT Abd/Pelvis W/WO Contrast IMPRESSION: 1. Nonobstructing 1 mm calculi at the lower poles of the left and right kidneys. There is no hydronephrosis, hydroureter, or ureterolithiasis. 2. Status post hysterectomy. 3. There is no evidence of free intra-abdominal or intrapelvic air, fluid, or inflammatory process. Electronically Signed: Chad Newton MD at 23:34 EST , Service support ,
[2019-05-02] MEDS: 0.9% Normal Saline 1,000 ML 1000 ML IV (21:55)
[2019-05-02 22:00] LABS: Bacteria 0 SEEN /hpf (None Seen); Squamous Epithelial Cells - UA 0 SEEN /hpf (5-10)
[2019-05-02 22:13] LABS: Color, Urine Yellow (Yellow); Glucose, Dipstick Normal (Normal); Ketone-Dipstick Negative (Negative); Leukocyte Esterase-Dipstick 25 /ul (Negative); Nitrite-Dipstick Negative (Negative); Occult Blood-Urine 250 /ul (Negative); Protein-Dipstick 15 mg/dl (Negative); Urine Bilirubin Dipstick Negative (Negative); Urine Clarity Clear (Clear); Urine Urobilinogen Normal (Normal); Urine pH 6.5 (5.0 - 8.0)
[2019-05-02 22:20] LABS: Red Blood Cells-Urine 0-5 SEEN /hpf (0-5); White Blood Cells 0-5 SEEN /hpf (0-5)
[2019-05-02 22:21] LABS: Mucous, Urine 3+ /hpf (<or=2+)
[2019-05-02 22:29] LABS: Absolute Lymphocyte Count 2.43 X10^3/uL (0.83-4.51); Absolute Neutrophil Count 3.9 X10^3/uL (2.0-7.7); Basophil# 0.03 X10^3/uL; Basophil% 0.4 % (0-1); Eosinophil# 0.22 X10^3/uL; Eosinophils% 3.1 % (0-5); Hemoglobin 14.6 g/dL (12.0-15.0); Lymphocyte # 2.43 X10^3/ul (4.0); Lymphocyte % 34.7 % (19-41); Mean Corp Hgb Conc 33.2 g/dL (32-36); Mean Corpuscular Volume 90.5 fL (81-99); Mean Platelet Vol. 11.6 fl (6.2-12.0); Monocyte# 0.41 X10^3/uL; Monocyte% 5.9 % (0-10); NRBC Flagged by Analyzer 0 % (0-5); Neutrophil # 3.89 X10^3/uL (2.7-7.7); Neutrophil % 55.6 % (47-70); Platelet Count 177 K/mm3 (150-450); RBC Distribution Width CV 13.7 % (11.6-14.6); Red Blood Count 4.86 M/mm3 (4.2-5.4)
[2019-05-02 22:42] LABS: Anion Gap 5 (5-15); BUN 11 mg/dL (7-18); Chloride 112 mmol/L (98-107); Creatinine, Serum 0.74 mg/dL (0.55-1.02); EST Glomerular Filtration Rate 90 mL/min (>60); Est Glom Filt Rate - Afr Amer 109 mL/min (>60); Estimated Creatinine Clearance 93.79 ml/min; Glucose 85 mg/dL (74-106); Potassium 4.1 mmol/L (3.5-5.1); Sodium Level 141 mmol/L (136-145)
[2019-05-02 22:51] LABS: Lactic Acid 1.1 mmol/L (0.4-2.0)
--- NOTE | 2019-05-02 23:54 | ED.VISSUMM ---
- ER Visit Summary Date of Service: 05/02/19 Chief Complaint: Right flank pain History of Present Illness: The patient is a [address] Byrd, Dr. Paris, and Dr. Jefferson. She reports that she has right flank pain that began April 09. However, she has had this off and on since having a procedure for a kidney stone in October by Dr. Davis. She reports the pain has been constant since since April 09. It is a dull pain Zeta 10 at worst and 5-10 currently. Is worsened by nothing. Is relieved by heat and vibration. She is had nausea without vomiting. No diarrhea. Her last bowel was yesterday. No melena or hematochezia. No dysuria frequency. She does report that she has had hematuria intermittently since March. Patient reports that she saw her grommet machine operator today and that he was unable to explain this. She has an appointment to see Dr. Davis next week and has a CT scheduled prior to this appointment. Physical Examination: Vitals: Stable. Afebrile. General: Well-nourished and well-developed. Head: Normocephalic atraumatic. Neck: Supple, no lymphadenopathy. No JVD. Nontender. Cardiovascular: Regular rate and rhythm. No murmurs. Respiratory: No respiratory distress. Clear to auscultation bilaterally. Abdominal: Soft, nontender, nondistended, normal bowel sounds. No guarding, rebound, or peritoneal signs. Back: Minimal right CVA tenderness. Her pain actually seems to be medial to her costovertebral angle where she has moderate tenderness palpation over the paraspinous musculature just to the right of her third lower thoracic spine. Extremities: Nontender, no edema. Skin: Normal color, no rash. Neurologic: Alert and oriented ?3. Cranial nerves II through XII are intact. Normal strength and sensation. Psych: Normal affect. Test Results: CBC is normal. Chem-7 is normal. UA shows leukocyte and blood. Lactic acid is 1.1. Clinical Impression(s) from Imaging Studies Abdomen/Pelvis CT 05/02/19 21:43 IMPRESSION: 1. Nonobstructing 1 mm calculi at the lower poles of the left and right kidneys. There is no hydronephrosis, hydroureter, or ureterolithiasis. 2. Status post hysterectomy. 3. There is no evidence of free intra-abdominal or intrapelvic air, fluid, or inflammatory process. Electronically Signed: Chad Newton MD at 23:34 EST , Service support , Emergency Department Course and Treatment: Patient was treated with Tylenol. She is resting comfortably. Treatment Plan: Discussed the patient at this time I do not have an explanation for her pain. I suspect that is musculoskeletal in etiology. Patient does not agree with this. She will be discharged instructions to follow-up with her grommet machine operator, urologist, and primary care physician for further evaluation and treatment. Return to the emergency department for any worsening symptoms. Disposition: To home in improved and stable condition. Impression: 1. Chronic right flank pain. This note was generated with [employer] dictation software. It may contain incorrect words, spelling, and punctuation that were not noted in review of the chart prior to signing ED Disposition - Plan for ED Patient: Instructions: FLANK PAIN, Uncertain Cause Referrals: Shaila Davis MD [STAFF PHYSICIAN] - Keep Brunilda appointment Glenn Jefferson MD [Primary Care Provider] - 3-5 Days
[2019-05-03 00:28] VITALS: BP 95/75; PULSE 82; RESP 16; O2SAT 98
== END 2019-05-03 00:31 | disposition home or self-care (01) ==
LOC: ED 21:22
PROVIDERS: Emergency Provider Emergency Medicine; Family Provider Family Medicine; PCP Family Medicine
DX: R10.9 Unspecified abdominal pain (principal); G89.29 Other chronic pain; R05 Cough; N20.0 Calculus of kidney; I10 Essential (primary) hypertension; F32.9 Major depressive disorder, single episode, unspecified; F41.9 Anxiety disorder, unspecified; Z87.442 Personal history of urinary calculi; Z90.710 Acquired absence of both cervix and uterus; Z79.82 Long term (current) use of aspirin; Z79.899 Other long term (current) drug therapy; F17.200 Nicotine dependence, unspecified, uncomplicated
CPT/HCPCS: 74178; 80048; 81001; 83605; 85025; 96360; 96361; 99285; J7030; Q9967; A4216

== ENCOUNTER → 2019-07-26 12:35 | Outpatient (CLI) | payer MEDICAID, SELFPAY ==
[2019-05-26 16:27] VITALS: BMI 38.0
--- NOTE | 2019-07-26 12:39 | US_ITS ---
STUDY: RENAL ULTRASOUND - COMPLETE REASON FOR EXAM: Female, 49 years old. NEPHROLITHIASIS TECHNIQUE: Ultrasound evaluation of the kidneys was performed with real-time and static cervantes-scale imaging. COMPARISON: None. FINDINGS: RIGHT KIDNEY: Normal location of the right kidney, which is normal in size. The right kidney measures 11.6 x 5.9 x 5.3 cm. There is a normal cortex of the right kidney. The renal cortex measures 1.2 cm. There is no right renal mass or cyst. Within the right kidney there are 2 echogenic structures with no distinct shadowing which could represent nonshadowing stones versus volume averaging related to renal sinus. Largest measures 0.2 x 0.2 cm. There is no right hydronephrosis. DISTAL RIGHT URETER: There is non-visualization of the distal right ureter. There is no demonstrated right ureterovesical junction calculus. There is a visualized right ureteral jet. LEFT KIDNEY: Normal location of the left kidney, which is normal in size. The left kidney measures 11.2 x 4.7 x 4.9 cm. There is a normal cortex of the left kidney. The renal cortex measures 1.6 cm. There is no left renal mass or cyst. Within the left kidney there is a small echogenic structure measuring 0.21 x 0.3 cm with mild shadowing which may be indicate a small stone. There is no left hydronephrosis. DISTAL LEFT URETER: There is non-visualization of the distal left ureter. There is no demonstrated left ureterovesical junction calculus. There is no demonstrated left ureteral jet. BLADDER: The urinary bladder has a volume of 43.82 ml. There is mild thickening of the urinary bladder wall nonspecific given decompressed bladder. There is no demonstrated mass within the urinary bladder. There are no demonstrated bladder calculi. US/Kidney and Bladder IMPRESSION: 0.2 x 0.2 cm calculus within the left kidney. Small renal calculi versus some volume averaging related to sinus fat at the level of the right kidney. Otherwise unremarkable Ultrasound of the kidneys and visualized urinary bladder. Electronically Signed: Alize Sim MD at 0:34 EST , Service support ,
== END ==
PROVIDERS: Family Provider Family Medicine; PCP Family Medicine; Referring Provider Internal Medicine; Visit Provider Internal Medicine
DX: N20.0 Calculus of kidney (principal)
CPT/HCPCS: 76770

== ENCOUNTER → 2019-08-22 16:46 | Outpatient (CLI) | payer MEDICAID, SELFPAY ==
[2019-05-26 16:27] VITALS: BMI 38.0
[2019-08-22 18:17] LABS: Protein, Urine (Random) 10.8 mg/dL (<11.9); Protein:Creat Ratio 136 mg/g CRE (0-200)
[2019-08-25 14:08] LABS: PROELU- Albumin, Urine 28.7 % (.); PROELU- Alpha-1-Globulin,Ur 5.2 % (.); PROELU- Alpha-2-Globulin,Ur 13.4 % (.); PROELU- Beta Globulin, Ur 18.8 % (.); PROELU- Gamma Globulin, Ur 33.9 % (.)
== END ==
PROVIDERS: Internal Medicine; PCP Family Medicine; Referring Provider Urology; Visit Provider Urology
DX: N20.0 Calculus of kidney (principal); R80.9 Proteinuria, unspecified
CPT/HCPCS: 36415; 82360; 82570; 84156; 84166

== ENCOUNTER → 2019-08-24 16:33 | Outpatient (CLI) | payer MEDICAID, SELFPAY ==
[2019-05-26 16:27] VITALS: BMI 38.0
[2019-08-24 18:48] LABS: Anion Gap 4 (5-15); BUN 10 mg/dL (7-18); BUN/Creat Ratio 14.7 RATIO (10-20); Calcium,Total 8.6 mg/dL (8.5-10.1); Chloride 109 mmol/L (98-107); Creatinine, Serum 0.68 mg/dL (0.55-1.02); EST Glomerular Filtration Rate 98 mL/min (>60); Est Glom Filt Rate - Afr Amer 119 mL/min (>60); Glucose 82 mg/dL (74-106); Potassium 3.9 mmol/L (3.5-5.1); Sodium Level 143 mmol/L (136-145)
[2019-08-26 20:07] LABS: PROEL- A/G Ratio 1.7 (0.7-1.7); PROEL- Albumin 3.8 g/dL (2.9-4.4); PROEL- Alpha-1 Globulin 0.2 g/dL (0.0-0.4); PROEL- Alpha-2 Globulin 0.7 g/dL (0.4-1.0); PROEL- Beta Globulin 0.9 g/dL (0.7-1.3); PROEL- Gamma Globulin 0.6 g/dL (0.4-1.8); PROEL- Globulin, Total 2.3 g/dL (2.2-3.9); PROEL- TOTAL PROTEIN 6.1 g/dL (6.0-8.5)
== END ==
LOC: MTLAB 16:35 → LABSPEC 16:36
PROVIDERS: PCP Family Medicine; Referring Provider Internal Medicine; Visit Provider Internal Medicine
DX: N20.0 Calculus of kidney (principal); R80.9 Proteinuria, unspecified
CPT/HCPCS: 36415; 80048; 81050; 84165

== ENCOUNTER → 2019-08-27 12:48 | Outpatient (CLI) | payer MEDICAID, SELFPAY ==
[2019-05-26 16:27] VITALS: BMI 38.0
[2019-08-27 13:04] LABS: 24 Hour Urine Protein 214.5 mg/24HR (<150 MG/24HR); 24HR. UA Prot. Total Volume 1950 mL
[2019-08-27 13:08] LABS: Creatinine, Serum 0.82 mg/dL (0.55-1.02); EST Glomerular Filtration Rate 79 mL/min (>60); Est Glom Filt Rate - Afr Amer 96 mL/min (>60)
[2019-08-27 13:14] LABS: Creat.Clear Total Volume 1950 mL; Creatinine Clearance 127 ml/min (100-200); Creatinine Serum Creat 0.8 mg/dL (0.6-1.0); Creatinine Urine 76.6 mg/dL (NO RANGE EST.); EST Glomerular Filtration Rate 79 mL/min (>60); Est Glom Filt Rate - Afr Amer 96 mL/min (>60)
== END ==
PROVIDERS: PCP Family Medicine; Visit Provider Internal Medicine
DX: N20.0 Calculus of kidney (principal); R80.9 Proteinuria, unspecified
CPT/HCPCS: 81050; 82565; 82575; 84156

== ENCOUNTER → 2019-10-21 14:56 | Outpatient (CLI) | payer MEDICAID, SELFPAY ==
[2019-05-26 16:27] VITALS: BMI 38.0
--- NOTE | 2019-10-21 14:59 | US_ITS ---
STUDY: RENAL ULTRASOUND - COMPLETE REASON FOR EXAM: Female, 49 years old. ACUTE PYELONEPHRITIS right flank pain. TECHNIQUE: Ultrasound evaluation of the kidneys was performed with real-time and static cervantes-scale imaging. COMPARISON: None. FINDINGS: RIGHT KIDNEY: Normal location of the right kidney, which is normal in size. The right kidney measures 11.6 cm x 6 cm x 4.8 cm. There is a normal cortex of the right kidney. The renal cortex measures 1.6 cm. There is no right renal mass or cyst. There is a nonobstructive 4 mm intrarenal calculus. There is no right hydronephrosis. DISTAL RIGHT URETER: There is non-visualization of the distal right ureter. There is no demonstrated right ureterovesical junction calculus. There is a visualized right ureteral jet. LEFT KIDNEY: Normal location of the left kidney, which is normal in size. The left kidney measures 11.3 cm x 5.7 cm x 4.9 cm. There is a normal cortex of the left kidney. The renal cortex measures 1.4 cm. There is no left renal mass or cyst. There is a 4 mm nonobstructive right intrarenal calculus. There is no left hydronephrosis. DISTAL LEFT URETER: There is non-visualization of the distal left ureter. There is no demonstrated left ureterovesical junction calculus. There is a visualized left ureteral jet. BLADDER: The distended urinary bladder has a volume of 175 ml. There is a normal wall thickness of the distended urinary bladder. There is no demonstrated mass within the urinary bladder. There are no demonstrated bladder calculi. US/Kidney and Bladder IMPRESSION: Small bilateral nonobstructive intrarenal calculi. Electronically Signed: Manuel Bustamante, at 8:24 EDT , Service support ,
== END ==
PROVIDERS: PCP Family Medicine; Referring Provider Urology; Visit Provider Urology
DX: N10 Acute pyelonephritis (principal)
CPT/HCPCS: 76770

== ENCOUNTER → 2020-01-31 17:35 | Outpatient (CLI) | payer MEDICAID, SELFPAY ==
[2019-05-26 16:27] VITALS: BMI 38.0
== END ==
PROVIDERS: PCP Family Medicine; Referring Provider Registered Nurse; Visit Provider Registered Nurse
DX: Z20.828 Contact with and (suspected) exposure to other viral communicable diseases (principal)
CPT/HCPCS: 87635; 94799; U0003

== ENCOUNTER 2020-02-28 16:05 | Emergency (ER) | payer MEDICAID, SELFPAY ==
[2019-05-26 16:27] VITALS: BMI 38.0
[2020-02-28 16:06] VITALS: BP 136/90; PULSE 98; RESP 16; TEMP 36.5; O2SAT 99; BMI 41.5
--- NOTE | 2020-02-28 16:22 | CT_ITS ---
STUDY: CT ABDOMEN AND PELVIS WITHOUT CONTRAST REASON FOR EXAM: Female, 49 years old. RIGHT FLANK PAIN WITH HISTORY OF KIDNEYS TONES AND LITHOTRIPSY. PRIOR SURGERY INCLUDES HYSTERECTOMY, LEFT OOPHRECTOMY , TUBIAL LIGATION AND HERNIA REPAIR RADIATION DOSAGE (If Supplied By Facility): CTDIvol = ( 23.82 ) mGy, DLP = ( 1219.93 ) mGycm TECHNIQUE: Transaxial images were obtained from the dome of the diaphragm to the symphysis pubis without oral contrast, and without intravenous contrast. Sagittal and coronal images were reconstructed. Individualized dose optimization techniques were used for this CT. COMPARISON: 05/02/2019 FINDINGS: The visualized lung bases are unremarkable. The visualized portions of the heart are within normal limits. Normal liver. Normal gallbladder and extrahepatic biliary system. Normal spleen. Normal pancreas. Normal bilateral adrenal glands. 3 mm obstructing stone at the right ureterovesical junction with mild ureteral dilatation and hydronephrosis. Normal left kidney. Normal visualized stomach. Normal small intestine. Normal colon. The appendix is visualized and appears normal. Normal abdominal aorta. Normal inferior vena cava. Normal retroperitoneum. Normal urinary bladder. Normal abdominal wall. Normal osseous structures. CT/Abdomen/Pelvis without Cont IMPRESSION: 3 mm obstructing stone of the right ureteral vesicle junction with mild ureteral dilatation and hydronephrosis. Electronically Signed: Eros Stuart MD at 17:10 EDT Tel , Service support ,
--- NOTE | 2020-02-28 16:23 | ED.VIS.GEN ---
History of Present Illness Chief Complaint: Complaint Informant: Patient Onset: Days Context: Gradual Onset Timing: Intermittent Current Severity: Moderate Maximum Severity: Moderate Narrative: The patient presents to the emergency department with flank pain and symptoms of recurrent urinary tract infection. Patient states that she has been on 2 antibiotics recently within the past 2 months. She states she was initially on Cipro. She cannot remember the exact medication she was on the second time. She states that it feels like it clears the symptoms, but a week later, she will begin to have UTI symptoms. She states for the past 5 days, she is had pain with urination, increasing frequency, and blood in her urine. She denies fever. She denies chills or sweats. Prior similar symptoms: Yes Recent Illness/Hospitalization: No Past Medical History - Allergies and Home Meds Allergies/Adverse Reactions: Allergies citalopram hydrobromide [From Celexa] Allergy (Severe, Verified 02/28/20 16:06) Anaphylaxis moxifloxacin HCl [From Avelox] Allergy (Intermediate, Verified 02/28/20 16:06) Hives doxycycline Allergy (Verified 02/28/20 16:06) Unknown naproxen sodium [From Aleve] Allergy (Verified 02/28/20 16:06) Hives prednisone Allergy (Verified 02/28/20 16:06) MENTAL STATUS CHANGE Primary Care Physician: Glenn Jefferson MD [Primary Care Provider] - Prior records reviewed: Yes Past Medical History: - - Prior kidney stone, recurrent UTI Surgical History: noncontributory Smoking Status: Current every day smoker Review of Systems General: Denies: Chills, Fever, Sweats Eyes: Denies: Visual changes - bilaterally, Diplopia ENT: Denies: Rhinorrhea, Sore throat Cardiovascular: Denies: Chest pain, Palpitations Respiratory: Denies: Dyspnea, Cough, Dyspnea on exertion Gastrointestinal: Denies: Abdominal pain, Nausea, Vomiting, Diarrhea, Melena, Hematochezia Genitourinary: Reports: Dysuria, Hematuria, Frequency Musculoskeletal: Denies: Back pain, Extremity Pain Skin: Denies: Rash, Wounds Neurological: Denies: Headache, Weakness, Numbness Physical Exam Vital Signs/Narrative: Vital Signs Temp Pulse Resp BP Pulse Ox 02/28/20 16:06 97.7 F L 98 16 136/90 H 99 Inital Vital Signs reviewed: Yes General: Well nourished, Well developed, No Acute Distress Head: Normocephalic, Atraumatic Eyes: Perrl, EOMI ENT: Moist mucous membranes, No rhinorrhea Neck: Supple, Nontender Cardiovascular: Regular rate, Regular rhythm, No murmurs Respiratory: No distress, CTA bilaterally, Chest nontender Abdomen: Soft, Nontender, Nondistended, Normal bowel sounds Back: Nontender, Normal Inspection Extremities: Nontender, No edema Skin: Normal color, No rash Neurological: Alert, Oriented x3, Cranial nerves II-XII grossly intact, Normal Strength, Normal Sensation Psychological: Normal affect, Normal Mood Diagnostic/Tx/Re-eval Clinical Impression(s) from Imaging Studies Abdomen/Pelvis CT 02/28/20 16:22 IMPRESSION: 3 mm obstructing stone of the right ureteral vesicle junction with mild ureteral dilatation and hydronephrosis. Electronically Signed: Eros Stuart MD at 17:10 EDT Tel , Service support , - Medical Decision Making The patient presents with some urinary frequency and urgency. She states that she has had recent UTIs despite negative cultures. A few days ago, she had a significant amount of blood in her urine. Urine was obtained. There is no evidence of infection. Given the symptoms, I did obtain flank CT. Patient has a small 3 mm stone at the UVJ with very minimal hydro-. Her pain is well controlled. She has no evidence of UTI. I am going to treat her with a short course of analgesics, Pyridium, and Flomax. She is already established with urology. She will be discharged with outpatient follow-up. Impression 1. 3 mm right UVJ stone ED Disposition - Plan for ED Patient: Instructions: ED Renal Stone w Colic Prescriptions: Tamsulosin HCl [Flomax] 0.4 mg PO DAILY #7 cap Prescription Printed Hydrocodone Bitart/Apap 5-325 [[place] 5MG-325MG] 1 tab PO Q6H PRN PRN 3 Days #10 tab PRN Reason: Pain Prescription Printed Phenazopyridine HCl [Pyridium] 200 mg PO BID PRN PRN #10 tab PRN Reason: Pain Prescription Printed Referrals: Glenn Jefferson MD [Primary Care Provider] -
[2020-02-28 16:24] LABS: Bacteria 0 SEEN /hpf (None Seen); Mucous, Urine 0 SEEN /hpf (<or=2+)
[2020-02-28 16:27] LABS: Color, Urine Yellow (Yellow); Glucose, Dipstick Normal (Normal); Ketone-Dipstick Negative (Negative); Leukocyte Esterase-Dipstick 25 /ul (Negative); Nitrite-Dipstick Negative (Negative); Occult Blood-Urine 150 /ul (Negative); Protein-Dipstick Negative (Negative); Specific Gravity, Urine 1.015 (1.002-1.030); Urine Bilirubin Dipstick Negative (Negative); Urine Clarity Clear (Clear); Urine Urobilinogen Normal (Normal); Urine pH 6.5 (5.0 - 8.0)
[2020-02-28 16:38] LABS: Red Blood Cells-Urine 5-10 SEEN /hpf (0-5); White Blood Cells 0-5 SEEN /hpf (0-5)
[2020-02-28 16:39] LABS: Squamous Epithelial Cells - UA 0-5 SEEN /hpf (5-10)
--- NOTE | 2020-03-04 01:04 | ED.RN ---
pt called with concerns of positive UC will talk to and call pt right back.
--- NOTE | 2020-03-04 13:13 | ED.RN ---
pt informed, per dr miller, probable contaminate. no need for further treatement
== END 2020-02-28 17:46 | disposition home or self-care (01) ==
PROVIDERS: Emergency Provider Emergency Medicine; PCP Family Medicine
DX: N13.2 Hydronephrosis with renal and ureteral calculous obstruction (principal); F17.200 Nicotine dependence, unspecified, uncomplicated; Z79.82 Long term (current) use of aspirin; Z79.899 Other long term (current) drug therapy; Z87.442 Personal history of urinary calculi; Z87.440 Personal history of urinary (tract) infections
CPT/HCPCS: 74176; 81001; 87086; 87088; 99282

== ENCOUNTER → 2020-03-16 14:21 | Outpatient (CLI) | payer MEDICAID, SELFPAY ==
[2020-02-28 16:06] VITALS: BMI 41.5
[2020-03-16 14:31] LABS: Mucous, Urine 0 SEEN /hpf (<or=2+); Red Blood Cells-Urine 0 SEEN /hpf (0-5); Squamous Epithelial Cells - UA 0 SEEN /hpf (5-10); White Blood Cells 0 SEEN /hpf (0-5)
[2020-03-16 17:58] LABS: Anion Gap 5 (5-15); BUN 11 mg/dL (7-18); BUN/Creat Ratio 14.7 RATIO (10-20); Calcium,Total 8.8 mg/dL (8.5-10.1); Chloride 113 mmol/L (98-107); Creatinine, Serum 0.75 mg/dL (0.55-1.02); EST Glomerular Filtration Rate 88 mL/min (>60); Est Glom Filt Rate - Afr Amer 106 mL/min (>60); Glucose 136 mg/dL (74-106); Potassium 4.2 mmol/L (3.5-5.1); Sodium Level 145 mmol/L (136-145)
[2020-03-16 18:16] LABS: Protein, Urine (Random) 8.8 mg/dL (<11.9); Protein:Creat Ratio 122 mg/g CRE (0-200)
[2020-03-16 18:34] LABS: Color, Urine Yellow (Yellow); Glucose, Dipstick Normal (Normal); Ketone-Dipstick Negative (Negative); Leukocyte Esterase-Dipstick Negative /ul (Negative); Nitrite-Dipstick Negative (Negative); Occult Blood-Urine Negative /ul (Negative); Protein-Dipstick Negative (Negative); Specific Gravity, Urine 1.015 (1.002-1.030); Urine Bilirubin Dipstick Negative (Negative); Urine Clarity Clear (Clear); Urine Urobilinogen Normal (Normal)
[2020-03-16 18:52] LABS: Bacteria 1+ /hpf (None Seen)
[2020-03-20 20:08] LABS: PROELU- Albumin, Urine 30.8 % (.); PROELU- Alpha-1-Globulin,Ur 5.4 % (.); PROELU- Alpha-2-Globulin,Ur 19.7 % (.); PROELU- Beta Globulin, Ur 28.4 % (.); PROELU- Gamma Globulin, Ur 15.6 % (.); Total Protein, Ur 7.2 mg/dL (Not Estab.)
== END ==
PROVIDERS: PCP Family Medicine; Referring Provider Internal Medicine; Visit Provider Internal Medicine
DX: N20.0 Calculus of kidney (principal); R80.9 Proteinuria, unspecified
CPT/HCPCS: 36415; 80048; 81001; 82570; 84156; 84166

== ENCOUNTER → 2020-03-22 12:04 | Outpatient (CLI) | payer MEDICAID, SELFPAY ==
[2020-02-28 16:06] VITALS: BMI 41.5
[2020-03-22 15:29] LABS: Anion Gap 7 (5-15); BUN 13 mg/dL (7-18); BUN/Creat Ratio 18.4 RATIO (10-20); Chloride 107 mmol/L (98-107); Creatinine, Serum 0.71 mg/dL (0.55-1.02); EST Glomerular Filtration Rate 94 mL/min (>60); Est Glom Filt Rate - Afr Amer 113 mL/min (>60); Glucose 102 mg/dL (74-106); Sodium Level 139 mmol/L (136-145)
[2020-03-22 21:24] LABS: Creat.Clear Total Volume 2900 mL; Creatinine Clearance 127 ml/min (100-200); Creatinine Serum Creat 0.7 mg/dL (0.6-1.0); Creatinine Urine 44.8 mg/dL (NO RANGE EST.); EST Glomerular Filtration Rate 93 mL/min (>60); Est Glom Filt Rate - Afr Amer 113 mL/min (>60)
[2020-03-22 21:26] LABS: 24 Hour Urine Protein 220.4 mg/24HR (<150 MG/24HR); 24HR. UA Prot. Total Volume 2900 mL; Protein, Urine (Random) 7.6 mg/dL (<11.9); Protein:Creat Ratio 165 mg/g CRE (0-200); Urine Protein (24 Hour) 7.6 mg/dL (<11.9)
[2020-03-28 14:08] LABS: PROEL- A/G Ratio 1.3 (0.7-1.7); PROEL- Albumin 3.9 g/dL (2.9-4.4); PROEL- Alpha-1 Globulin 0.3 g/dL (0.0-0.4); PROEL- Alpha-2 Globulin 0.9 g/dL (0.4-1.0); PROEL- Gamma Globulin 0.7 g/dL (0.4-1.8); PROEL- TOTAL PROTEIN 6.9 g/dL (6.0-8.5); PROELU- Alpha-1-Globulin,Ur 1.7 % (.); PROELU- Alpha-2-Globulin,Ur 16.4 % (.); PROELU- Beta Globulin, Ur 33.2 % (.); PROELU- Gamma Globulin, Ur 12.7 % (.); Total Protein, Ur 17.9 mg/dL (Not Estab.)
== END ==
PROVIDERS: PCP Family Medicine; Referring Provider Internal Medicine; Visit Provider Internal Medicine
DX: N20.9 Urinary calculus, unspecified (principal); R80.9 Proteinuria, unspecified
CPT/HCPCS: 36415; 80048; 81050; 82570; 82575; 84156; 84165; 84166

== ENCOUNTER → 2020-09-20 13:38 | Outpatient (CLI) | payer MEDICAID, SELFPAY ==
[2020-09-20 14:52] LABS: Color, Urine Yellow (Yellow); Glucose, Dipstick Normal (Normal); Ketone-Dipstick Negative (Negative); Leukocyte Esterase-Dipstick Negative /ul (Negative); Nitrite-Dipstick Negative (Negative); Occult Blood-Urine Negative /ul (Negative); Protein-Dipstick Negative (Negative); Specific Gravity, Urine 1.015 (1.002-1.030); Urine Bilirubin Dipstick Negative (Negative); Urine Clarity Clear (Clear); Urine Urobilinogen Normal (Normal)
[2020-09-20 15:05] LABS: Anion Gap 0 (5-15); BUN 12 mg/dL (7-18); BUN/Creat Ratio 14.9 RATIO (10-20); Calcium,Total 9.6 mg/dL (8.5-10.1); Chloride 108 mmol/L (98-107); Creatinine, Serum 0.81 mg/dL (0.55-1.02); EST Glomerular Filtration Rate 80 mL/min (>60); Est Glom Filt Rate - Afr Amer 97 mL/min (>60); Glucose 121 mg/dL (74-106); Potassium 4.4 mmol/L (3.5-5.1); Sodium Level 139 mmol/L (136-145)
[2020-09-20 15:07] LABS: Protein, Urine (Random) 10.8 mg/dL (<11.9); Protein:Creat Ratio 119 mg/g CRE (0-200)
== END ==
PROVIDERS: PCP Family Medicine; Referring Provider Internal Medicine; Visit Provider Internal Medicine
DX: R80.9 Proteinuria, unspecified (principal); N20.0 Calculus of kidney
CPT/HCPCS: 36415; 80048; 81002; 82570; 84156

== ENCOUNTER → 2021-03-18 12:08 | Outpatient (CLI) | payer MEDICAID, SELFPAY ==
[2021-03-18 12:17] LABS: Bacteria 0 SEEN /hpf (None Seen); Red Blood Cells-Urine 0 SEEN /hpf (0-5); White Blood Cells 0 SEEN /hpf (0-5)
[2021-03-18 15:22] LABS: Color, Urine Yellow (Yellow); Glucose, Dipstick Normal (Normal); Ketone-Dipstick Negative (Negative); Leukocyte Esterase-Dipstick Negative /ul (Negative); Nitrite-Dipstick Negative (Negative); Occult Blood-Urine Negative /ul (Negative); Protein-Dipstick Negative (Negative); Specific Gravity, Urine 1.025 (1.002-1.030); Urine Bilirubin Dipstick Negative (Negative); Urine Clarity Sl. Cloudy (Clear); Urine Urobilinogen Normal (Normal)
[2021-03-18 15:37] LABS: Anion Gap 5 (5-15); BUN 11 mg/dL (7-18); BUN/Creat Ratio 14.2 RATIO (10-20); Chloride 108 mmol/L (98-107); Creatinine, Serum 0.78 mg/dL (0.55-1.02); EST Glomerular Filtration Rate 84 mL/min (>60); Est Glom Filt Rate - Afr Amer 101 mL/min (>60); Glucose 114 mg/dL (74-106); Sodium Level 142 mmol/L (136-145)
[2021-03-18 15:40] LABS: Squamous Epithelial Cells - UA 5-10 SEEN /hpf (5-10)
[2021-03-18 15:41] LABS: Amorphous Sediment 2+ URATE; Mucous, Urine 2+ /hpf (<or=2+)
[2021-03-18 15:47] LABS: Protein, Urine (Random) 16.1 mg/dL (<11.9); Protein:Creat Ratio 87 mg/g CRE (0-200)
== END ==
PROVIDERS: PCP Family Medicine; Referring Provider Internal Medicine; Visit Provider Internal Medicine
DX: N20.0 Calculus of kidney (principal); R80.9 Proteinuria, unspecified
CPT/HCPCS: 36415; 80048; 81001; 82570; 84156

== ENCOUNTER 2021-05-28 13:50 | Outpatient (CLI) | payer MEDICAID, SELFPAY ==
[2021-05-28 14:22] VITALS: BP 102/76; PULSE 97; RESP 16; TEMP 37; O2SAT 98; BMI 50.1
[2021-05-28] MEDS: 0.9% Saline Lock 10 ML Syringe IV (14:28)
[2021-05-28 14:57] VITALS: BP 104/62; PULSE 92; RESP 16; TEMP 36.9; O2SAT 99
[2021-05-28 15:48] VITALS: BP 108/70; PULSE 83; RESP 16; TEMP 37; O2SAT 97
== END 2021-05-28 15:50 | disposition home or self-care (01) ==
LOC: MS3OUT 13:51 → MS3 13:52
PROVIDERS: PCP Family Medicine; Referring Provider Nurse Practitioner Adult Health; Visit Provider Nurse Practitioner Adult Health
DX: Z23 Encounter for immunization (principal); U07.1 COVID-19
CPT/HCPCS: J7050; M0243; A4216; Q0244

== ENCOUNTER 2021-07-22 14:33 | Outpatient (CLI) | payer MEDICAID, SELFPAY ==
--- NOTE | 2021-07-22 14:37 | US_ITS ---
STUDY: RENAL ULTRASOUND - COMPLETE REASON FOR EXAM: Female, 51 years old. STONES PROTEINURIA TECHNIQUE: Ultrasound evaluation of the kidneys was performed with real-time and static cervantes-scale imaging. COMPARISON: None. FINDINGS: RIGHT KIDNEY: Normal location of the right kidney, which is normal in size. The right kidney measures 11.1x6.2 cm. There is a normal cortex of the right kidney. The renal cortex measures 1.2 cm. There is no right renal mass or cyst. There are no right renal calculi. There is no right hydronephrosis. DISTAL RIGHT URETER: There is non-visualization of the distal right ureter. There is no demonstrated right ureterovesical junction calculus. There is no demonstrated right ureteral jet. LEFT KIDNEY: Normal location of the left kidney, which is normal in size. The left kidney measures 11.3x5.4 cm. There is a normal cortex of the left kidney. The renal cortex measures 1.1 cm. There is no left renal mass or cyst. There are no left renal calculi. There is no left hydronephrosis. DISTAL LEFT URETER: There is non-visualization of the distal left ureter. There is no demonstrated left ureterovesical junction calculus. There is a visualized left ureteral jet. AORTA: There is obscuration of the abdominal aorta by overlying bowel gas I.V.C.: The IVC is obscured. BLADDER: The distended urinary bladder has a volume of 237 ml. There is a normal wall thickness of the distended urinary bladder. There is no demonstrated mass within the urinary bladder. There are no demonstrated bladder calculi. US/Kidney and Bladder IMPRESSION: There are no renal stones. There is no hydronephrosis. Electronically Signed: Manav Bui MD at 15:19 EST ,
== END 2021-07-22 23:59 | disposition home or self-care (01) ==
LOC: US 14:34
PROVIDERS: PCP Family Medicine; Referring Provider Urology; Visit Provider Urology
DX: N20.0 Calculus of kidney (principal); R80.9 Proteinuria, unspecified
CPT/HCPCS: 76770; 87086; 87088

== ENCOUNTER 2021-07-22 15:07 | Outpatient (CLI) | payer MEDICAID, SELFPAY | END 2021-07-22 23:59 | disposition home or self-care (01) | PROVIDERS: PCP Family Medicine; Visit Provider Internal Medicine Nephrology | DX: R31.9 Hematuria, unspecified (principal) | CPT/HCPCS: 87086 ==

== ENCOUNTER → 2021-08-13 11:06 | Outpatient (CLI) | payer MEDICAID, SELFPAY ==
[2021-08-13 12:35] LABS: Erythrocyte Sedimentation Rate 7 mm/hr (0-30)
[2021-08-13 12:37] LABS: Basophil# 0.04 X10^3/uL; Basophil% 0.6 % (0-1); Eosinophil# 0.23 X10^3/uL; Eosinophils% 3.6 % (0-5); Hematocrit 43.8 % (37-47); Hemoglobin 14.7 g/dL (12.0-15.0); Lymphocyte % 29.6 % (19-41); Mean Corp Hgb Conc 33.6 g/dL (32-36); Mean Corpuscular Hgb 29.5 pg (27.0-32.0); Mean Platelet Vol. 11.6 fl (6.2-12.0); Monocyte# 0.26 X10^3/uL; Monocyte% 4.1 % (0-10); NRBC Flagged by Analyzer 0 % (0-5); Neutrophil # 3.97 X10^3/uL (2.7-7.7); Neutrophil % 61.9 % (47-70); Platelet Count 189 K/mm3 (150-450); RBC Distribution Width CV 12.8 % (11.6-14.6); RBC Distribution Width SD 41.2 fl (35.1-43.9); Red Blood Count 4.98 M/mm3 (4.2-5.4); White Blood Count 6.4 K/mm3 (4.4-11.0)
[2021-08-13 13:21] LABS: ALB/GLOB Ratio 1.1 RATIO (0.9-2.4); AST(SGOT) 16 U/L (15-37); Alanine Aminotransfer ALT/SGPT 23 U/L (13-56); Albumin, Serum 3.6 g/dL (3.2-5.0); Alkaline Phosphatase 70 U/L (45-117); Anion Gap 7 (5-15); BUN 11 mg/dL (7-18); BUN/Creat Ratio 14.2 RATIO (10-20); CRP < 2.90 mg/L (0.0-3.0); Calcium,Total 8.9 mg/dL (8.5-10.1); Chloride 110 mmol/L (98-107); Creatinine, Serum 0.78 mg/dL (0.55-1.02); EST Glomerular Filtration Rate 83 mL/min (>60); Est Glom Filt Rate - Afr Amer 101 mL/min (>60); Globulin 3.4 g/dL (2.2-4.2); Glucose 110 mg/dL (74-106); Magnesium 2.4 mg/dL (1.6-2.6); Sodium Level 143 mmol/L (136-145)
== END ==
PROVIDERS: PCP Family Medicine
DX: R25.2 Cramp and spasm (principal)
CPT/HCPCS: 36415; 80053; 82306; 83735; 85025; 85652; 86140

== ENCOUNTER 2021-09-18 19:56 | Emergency (ER) | payer MEDICAID, SELFPAY ==
[2021-09-18 19:57] VITALS: BP 185/91; PULSE 106; RESP 20; TEMP 36.6; O2SAT 100; BMI 43.9
--- NOTE | 2021-09-18 21:08 | EKG12_ITS ---
Test Reason : EDEMA Blood Pressure : / mmHG Vent. Rate : 094 BPM Atrial Rate : 094 BPM P-R Int : 154 ms QRS Dur : 088 ms QT Int : 374 ms P-R-T Axes : 030 -57 034 degrees QTc Int : 467 ms Normal sinus rhythm Left anterior fascicular block R/S >1.0 in V1: consider, Lead placement Early Transition, Normal Variant, Isolated Posterior TX-age undetermined Abnormal ECG Confirmed by KILLIAN FOWLER, ANA MARÍA ([id number]), design editor KUMAR GUZMAN ([id number]) on 09/25/2021 10:53:18 AM Referred By: SANDRA Confirmed By:ANA MARÍA DAILY MD
--- NOTE | 2021-09-18 21:17 | EX.ED.DYSGE1 ---
HPI History of Present Illness Chief Complaint: Edema Narrative Narrative: 51-year-old female presenting with bilateral lower extremity edema the right greater than the left. Patient reports a recent 10-hour car ride. She states she has a history of a superficial clot from a IV she had in her right upper extremity. She has no history of unprovoked blood clots. Patient states she does not have any chest pain or changing shortness of breath. No fevers or cough. Patient states that her right leg was swollen first yesterday and she had some erythema which spanned up past the knee which has now resolved. After this the left leg did the same thing. She does have some edema that is residual. She describes itching and burning of the feet. [facility] Medical History Aneurysm of heart Anxiety and depression Asthma Atherosclerotic heart disease of [place] coronary artery without angina pectoris Bipolar 2 disorder Breast lump Essential hypertension Hyperprolactinemia Mixed hyperlipidemia Pituitary adenoma Pituitary disorder Sinus tachycardia Vitamin deficiency Home Medications cetirizine [Zyrtec] 10 mg PO DAILY 07/29/16 [History Last Taken Unknown] cholecalciferol (vitamin D3) 2,000 unit PO DAILY 04/13/17 [History Last Taken Unknown] melatonin 5 mg capsule 5 mg PO QHS PRN PRN 10/20/17 [History Last Taken Unknown] magnesium oxide 400 mg PO DAILY PRN 11/09/17 [History Last Taken Unknown] albuterol sulfate 90 mcg/actuation aerosol inhaler 2 puff INHALATION Q4H PRN g 07/06/18 [History Last Taken Unknown] cabergoline 0.5 mg tablet 0.5 mg PO QWEEK tab 07/06/18 [History Last Taken Unknown] furosemide 20 mg tablet 20 mg PO DAILY PRN 07/06/18 [History Last Taken Unknown] nitroglycerin 0.4 mg sublingual tablet 0.4 mg SUBLINGUAL Q5-15M PRN 07/06/18 [History Last Taken Unknown] atorvastatin 20 mg tablet 20 mg PO DAILY #90 tab 04/05/21 [Rx Last Taken Unknown] multivitamin 1 tab PO DAILY 05/28/21 [History Last Taken Unknown] methylphenidate HCl [Concerta] 36 mg PO DAILY 09/18/21 [History Last Taken Unknown] prednisone 5 mg PO DAILY 09/18/21 [History Last Taken Unknown] vilazodone [Viibryd] 5 mg PO DAILY 09/18/21 [History Last Taken Unknown] Allergy/AdvReac Type Severity Reaction Status Date / Time citalopram hydrobromide Allergy Severe Anaphylaxis Verified 09/18/21 20:01 [From Celexa] moxifloxacin HCl Allergy Intermediate Hives Verified 09/18/21 20:01 [From Avelox] doxycycline Allergy Unknown Verified 09/18/21 20:01 naproxen sodium [From Aleve] Allergy Hives Verified 09/18/21 20:01 prednisone Allergy MENTAL Verified 09/18/21 20:01 STATUS CHANGE Family History Mother Osteoporosis Kidney disease High cholesterol Diabetes Arthritis Congestive heart failure Hypertension Father Hypertension High cholesterol Heart disease Grandmother Heart disease Diabetes Surgical History H/O: hysterectomy History of cardiac catheterization (~04/14/17) History of tubal ligation History of ventral hernia repair Social History Smoking Status: Current every day smoker tobacco type: cigarettes second hand exposure: Yes alcohol intake: never substance use type: does not use ROS ROS ED Constitutional Constitutional ED: Denies chills or fever(s) Eyes Eyes: Denies blurry vision or change in vision ENT ENT ED: Denies rhinorrhea Cardiovascular Cardiovascular: Denies chest pain or palpitations Respiratory/Chest Respiratory/Chest: Denies cough, dyspnea or sputum Gastrointestinal Gastrointestinal: Denies abdominal pain, nausea or vomiting Genitourinary Genitourinary ED: Denies dysuria or hematuria Musculoskeletal Musculoskeletal: Denies arthralgias or myalgias Integumentary Reports other Details: Erythema and pruritus of right foot Neurologic Neurologic: Denies headache(s) or weakness Psychiatric Psychiatric: Denies anxiety or depression EXAM Physical Exam Const Vital Signs: 09/18/21 19:57 09/18/21 21:03 09/18/21 21:31 Temperature 98 F Temperature Source Temporal Pulse Rate 106 H Respiratory Rate 20 H 17 Respiratory Effort Short of Breath Blood Pressure 185/91 H Blood Pressure Mean 122 Pulse Ox 100 98 Oxygen Delivery Method Room Air Room Air 09/18/21 22:36 Temperature Temperature Source Pulse Rate 88 Respiratory Rate 15 Respiratory Effort Blood Pressure 119/73 Blood Pressure Mean 88 Pulse Ox 97 Oxygen Delivery Method Room Air Positive well nourished and obese General Appearance ED: NAD Nutritional Appearance: obese HEENT Reports moist mucous membranes Negative for trauma Eyes PERRL and EOMs intact bilaterally Chest Wall inspection of chest normal and palpation of chest normal Resp normal respiratory effort and clear to auscultation bilaterally Cardio regular rate and regular rhythm Extremity Extremity Narrative: Mild erythema to right foot. Mild edema to bilateral lower extremities up to the mid tibia. 1+. No tenderness to palpation. DP/PT is +2/4 and symmetric bilaterally. Calf is nontender and no cords palpated bilaterally. Neuro oriented x3 and CN's II-XII intact bilaterally Sensorium / Orientation: alert Psych mental status grossly normal Skin Skin Narrative: As described above MDM MDM MDM Narrative Medical decision making narrative: Patient presenting with bilateral lower extremity edema which is greater on the right. She described erythema which has improved. She also states she has had a recent long car ride with edema was greater. She went to the urgent care where they told her she needed antibiotics, D-dimer, ultrasound, CTA of the chest. Patient with no history of unprovoked DVT/PE. I obtained lab work and her CBC shows a white blood cell count of 6.1, hemoglobin 14.3, hematocrit 42.0, platelets 179. Renal function and electrolytes are normal. High-sensitivity troponin is less than 3, BNP is 33.3. Right lower extremity DVT study is negative. DVT. Chest x-ray on my interpretation shows no acute cardiopulmonary process and the radiologist does agree. Patient with ultimately negative work-up. She does not have a DVT. There is no evidence of cellulitis and she does not have a leukocytosis. The pain in her foot is described as itching. I think that she likely has some edema from her long car ride but she does not have evidence of blood clot so I think she can be discharged home. She is counseled on this. She is to follow-up with her PCP to ensure resolution. Patient stable discharge. Impression: 1. Lower extremity edema 2. Shortness of breath Lab Data Attestation: I reviewed the patient's lab results. Labs: Laboratory Results - last 24 hr 09/18/21 09/18/21 09/18/21 21:20 21:20 21:20 WBC 6.1 RBC 4.78 Hgb 14.3 Hct 42.0 MCV 87.9 MCH 29.9 MCHC 34.0 RDW Std Deviation 41.8 RDW Coeff of Je 12.9 Plt Count 179 MPV 11.5 Immature Gran % (Auto) 0.300 Neut % (Auto) 64.2 Lymph % (Auto) 28.7 [place] % (Auto) 4.4 Eos % (Auto) 2.1 Baso % (Auto) 0.3 Absolute Neuts (auto) 3.9 Absolute Lymphs (auto) 1.76 Nucleated RBC % 0 Sodium 143 Potassium 3.7 Chloride 111 H Carbon Dioxide 29.0 Anion Gap 3 L BUN 11 Creatinine 0.83 Estim Creat Clear Calc 81.80 Est GFR (MDRD) Af Amer 94 Est GFR (MDRD) Non-Af 78 BUN/Creatinine Ratio 13.3 Glucose 140 H Calcium 9.4 Troponin I High Sens < 3 L B-Natriuretic Peptide 33.3 Radiography Diagnostic Testing: Clinical Impression(s) from Imaging Studies Chest X-Ray 09/18/21 21:45 IMPRESSION: No acute cardiopulmonary disease. Electronically Signed: Eduin Perry MD at 22:06 EDT , Discharge Plan Triage Chief Complaint: Edema ED Provider: Papo Mckinney Dx/Rx/DC Orders Prescriptions: No Action melatonin 5 mg capsule 5 mg PO QHS PRN PRN (Reason: Sleep) RF: 0 furosemide 20 mg tablet 20 mg PO DAILY PRN (Reason: water retention) RF: 0 cabergoline 0.5 mg tablet 0.5 mg PO QWEEK RF: 0 nitroglycerin 0.4 mg tablet, sublingual 0.4 mg SUBLINGUAL Q5-15M PRN (Reason: chest pain) RF: 0 ProAir HFA 90 mcg/actuation HFA aerosol inhaler 2 puff INHALATION Q4H PRN (Reason: Sob &/Or Wheezing) RF: 0 cetirizine [Zyrtec] 10 MG tablet 10 mg PO DAILY RF: 0 cholecalciferol (vitamin D3) 2,000 UNIT capsule 2,000 unit PO DAILY RF: 0 magnesium oxide 400 MG tablet 400 mg PO DAILY PRN (Reason: muscle aches) RF: 0 multivitamin Tablet 1 tab PO DAILY RF: 0 methylphenidate HCl [Concerta] 36 mg Tablet Extended Release 24hr 36 mg PO DAILY RF: 0 Viibryd 10 mg Tablet 5 mg PO DAILY RF: 0 prednisone 20 mg Tablet 5 mg PO DAILY RF: 0 atorvastatin 20 mg tablet 20 mg PO DAILY Qty: 90 RF: 3 Primary Care Provider: Glenn Jefferson
[2021-09-18 21:31] VITALS: RESP 17; O2SAT 98
[2021-09-18 21:33] LABS: Absolute Lymphocyte Count 1.76 X10^3/uL (0.83-4.51); Absolute Neutrophil Count 3.9 X10^3/uL (2.0-7.7); Basophil# 0.02 X10^3/uL; Basophil% 0.3 % (0-1); Eosinophil# 0.13 X10^3/uL; Eosinophils% 2.1 % (0-5); Hemoglobin 14.3 g/dL (12.0-15.0); Lymphocyte # 1.76 X10^3/ul (0.83-4.51); Lymphocyte % 28.7 % (19-41); Mean Corpuscular Hgb 29.9 pg (27.0-32.0); Mean Corpuscular Volume 87.9 fL (81-99); Mean Platelet Vol. 11.5 fl (6.2-12.0); Monocyte# 0.27 X10^3/uL; Monocyte% 4.4 % (0-10); NRBC Flagged by Analyzer 0 % (0-5); Neutrophil # 3.93 X10^3/uL (2.7-7.7); Neutrophil % 64.2 % (47-70); Platelet Count 179 K/mm3 (150-450); RBC Distribution Width CV 12.9 % (11.6-14.6); RBC Distribution Width SD 41.8 fl (35.1-43.9); Red Blood Count 4.78 M/mm3 (4.2-5.4); White Blood Count 6.1 K/mm3 (4.4-11.0)
--- NOTE | 2021-09-18 21:34 | US_ITS ---
EXAM: US right lower extremity venous Doppler. HISTORY: RT LEG REDNESS AND SWELLING TECHNIQUE: US Venous Duplex LE Unilat / Limited COMPARISON: None. LIMITATIONS: None. FLOW: Normal. THROMBUS: None. AUGMENTATION: Normal. FLUID COLLECTIONS: None. SUPERFICIAL VEINS: Normal. OTHER: None. CONCLUSION: No evidence of deep venous thrombosis of the right lower extremity. Electronically Signed: Eduin Perry MD at 22:46 EDT , US/Venous Duplex Imag/Limited/Uni
--- NOTE | 2021-09-18 21:45 | RAD_ITS ---
INDICATION: chest pain EXAMINATION/TECHNIQUE: X-RAY - XR Chest 1 View COMPARISON: 04/10/2019 FINDINGS: LINES/DEVICES: None. LUNGS: No consolidation, edema or effusion. No pneumothorax. MEDIASTINUM AND CARDIOVASCULAR STRUCTURES: Cardiac silhouette not enlarged. Central airways and mediastinal contour are unremarkable. BONES AND SOFT TISSUES: Unremarkable. RAD/Chest 1 View (Portable) IMPRESSION: No acute cardiopulmonary disease. Electronically Signed: Eduin Perry MD at 22:06 EDT ,
[2021-09-18 21:57] LABS: Anion Gap 3 (5-15); BUN 11 mg/dL (7-18); BUN/Creat Ratio 13.3 RATIO (10-20); Calcium,Total 9.4 mg/dL (8.5-10.1); Chloride 111 mmol/L (98-107); Creatinine, Serum 0.83 mg/dL (0.55-1.02); EST Glomerular Filtration Rate 78 mL/min (>60); Est Glom Filt Rate - Afr Amer 94 mL/min (>60); Glucose 140 mg/dL (74-106); Potassium 3.7 mmol/L (3.5-5.1); Sodium Level 143 mmol/L (136-145); Troponin-I HS (w/2H Reflex) < 3 pg/mL (3.0-54.0)
[2021-09-18 21:58] LABS: BNP,B-Type NATRIURETIC PEPTIDE 33.3 pg/mL (0-100)
[2021-09-18 22:36] VITALS: BP 119/73; PULSE 88; RESP 15; O2SAT 97
[2021-09-18 22:50] VITALS: BP 131/80; PULSE 87; RESP 22; O2SAT 96
[2021-09-18 23:27] LABS: Reflex Troponin-HS? (from REC) Y
== END 2021-09-18 22:51 | disposition home or self-care (01) ==
PROVIDERS: Emergency Provider Student in an Organized Health Care Education/Training Program; PCP Family Medicine; Visit Provider Student in an Organized Health Care Education/Training Program
DX: R60.0 Localized edema (principal); F31.81 Bipolar II disorder; R06.02 Shortness of breath; M79.673 Pain in unspecified foot; I25.10 Atherosclerotic heart disease of native coronary artery without angina pectoris; I10 Essential (primary) hypertension; E78.2 Mixed hyperlipidemia; F17.210 Nicotine dependence, cigarettes, uncomplicated; Z79.899 Other long term (current) drug therapy
CPT/HCPCS: 71045; 80048; 83880; 84484; 85025; 93005; 93971; 99284; A4216

== ENCOUNTER 2021-09-30 16:24 | Outpatient (CLI) | payer MEDICAID, SELFPAY ==
--- NOTE | 2021-09-30 16:27 | RAD_ITS ---
STUDY: X-RAY - ABDOMEN/PELVIS REASON FOR EXAM: Female, 51 years old. ABD PAIN TECHNIQUE: Supine and upright views. 4 images. COMPARISON: Abdominal x-rays 07/24/2017. FINDINGS: The bowel gas pattern is nonspecific. No dilated air-filled bowel to suggest bowel obstruction. No free air identified. Small rounded density in the right pelvis possible stone in the distal right ureter versus phlebolith. Small density lower pelvis likely a surgical clip. The lung bases are clear. RAD/Abd Inc Decub and/or Erect IMPRESSION: No bowel obstruction. Small density in the right pelvis may be phlebolith or distal right ureteral calculus. CT abdomen pelvis may be helpful if clinically indicated. Electronically Signed: Therese Whitaker MD at 5:33 EDT ,
== END 2021-09-30 23:59 | disposition home or self-care (01) ==
LOC: MTRAD 16:25
PROVIDERS: PCP Family Medicine; Referring Provider Internal Medicine Gastroenterology; Visit Provider Internal Medicine Gastroenterology
DX: R10.9 Unspecified abdominal pain (principal)
CPT/HCPCS: 74019

== ENCOUNTER → 2021-11-27 | Outpatient (CLI) | payer MEDICAID, SELFPAY ==
--- NOTE | 2021-11-27 10:43 | BD_ITS ---
STUDY: DUAL ENERGY X-RAY ABSORPTIOMETRY / DXA REASON FOR EXAM: Female, 51 years old. Z79.52. PREDNISONE use. TECHNIQUE: Bone Mineral Density (BMD) measurements of lumbar spine and bilateral hips were obtained. COMPARISON: Comparison is made with prior study dated 01/06/2019. FINDINGS: Lumbar Spine (L1-L4): g/cm2 (0.732) / T-score (-3.1) / Z-score (-2.3) Findings are suggestive of osteoporosis with a high fracture risk. Left Femur Total: g/cm2 (0.969) / T-score (0.2) / Z-score (0.7) Left Femoral Neck: g/cm2 (0.878) / T-score (0.3) / Z-score (1.0) Right Femur Total: g/cm2 (0.918) / T-score (-0.2) / Z-score (0.3) Right Femoral Neck: g/cm2 (0.805) / T-score (-0.4) / Z-score (0.4) The T-Scores on the most recent prior examination were: Lumbar Spine (L1-L4): There has been worsening of bone density since the previous examination. Left Femur Total: which represents a worsening of 6.8%. Right Femur Total: which represents a worsening of 6.5%. BD/Dexa Bone Density Study IMPRESSION: The patient is considered osteoporotic as outlined below according to World Patricio Organization (WHO) criteria with a high fracture risk. There has been worsening of bone density since the previous examination. Reference Information: The T-score is the number of standard deviations above or below the standard which is normal for young adults at their peak bone mineral density. The World Health Organization (WHO) interprets the T-scores as follows: Above -1 Normal bone density Between -1 and -2.5 Osteopenia Equal to / or below -2.5 Osteoporosis As a practical clinical guideline, osteopenia may be graded as follows: Mild -1 through -1.5 Moderate -1.6 through -2.0 Severe -2.1 through -2.4 The Z-score is the number of standard deviations above or below age-matched controls. A Z-score of less than -1.5 would be considered abnormal. References: 1. NIH Osteoporosis and Related Bone Diseases www osteo.org 2. International Society for Clinical Densitometry www iscd.org 3. National Osteoporosis Foundation www nof.org Electronically Signed: Manuel Bustamante MD at 15:19 EDT ,
== END | disposition home or self-care (01) ==
LOC: OPBD 10:28
PROVIDERS: PCP Family Medicine; Visit Provider Internal Medicine Rheumatology
DX: R29.890 Loss of height (principal); Z79.52 Long term (current) use of systemic steroids
CPT/HCPCS: 77080

== ENCOUNTER → 2021-12-07 | Outpatient (CLI) | payer MEDICAID, SELFPAY ==
[2021-12-07 12:32] LABS: Bacteria 0 SEEN /hpf (None Seen); Mucous, Urine 0 SEEN /hpf (<or=2+); Red Blood Cells-Urine 0 SEEN /hpf (0-5); Squamous Epithelial Cells - UA 0 SEEN /hpf (5-10); White Blood Cells 0 SEEN /hpf (0-5)
[2021-12-07 12:37] LABS: Color, Urine Yellow (Yellow); Glucose, Dipstick Normal (Normal); Ketone-Dipstick Negative (Negative); Leukocyte Esterase-Dipstick Negative /ul (Negative); Nitrite-Dipstick Negative (Negative); Occult Blood-Urine Negative /ul (Negative); Protein-Dipstick Negative (Negative); Specific Gravity, Urine 1.015 (1.002-1.030); Urine Bilirubin Dipstick Negative (Negative); Urine Clarity Clear (Clear); Urine Urobilinogen Normal (Normal)
[2021-12-07 12:56] LABS: Protein, Urine (Random) 10.9 mg/dL (<11.9); Protein:Creat Ratio 128 mg/g CRE (0-200)
[2021-12-07 13:05] LABS: Anion Gap 6 (5-15); BUN 13 mg/dL (7-18); BUN/Creat Ratio 15.9 RATIO (10-20); Chloride 113 mmol/L (98-107); Creatinine, Serum 0.82 mg/dL (0.55-1.02); EST Glomerular Filtration Rate 79 mL/min (>60); Est Glom Filt Rate - Afr Amer 95 mL/min (>60); Glucose 101 mg/dL (74-106); Potassium 4.4 mmol/L (3.5-5.1); Sodium Level 142 mmol/L (136-145)
== END | disposition home or self-care (01) ==
LOC: LAB 12:31
PROVIDERS: PCP Family Medicine; Referring Provider Internal Medicine; Visit Provider Internal Medicine
DX: R80.9 Proteinuria, unspecified (principal); N20.0 Calculus of kidney
CPT/HCPCS: 36415; 80048; 81001; 82570; 84156

== ENCOUNTER → 2022-01-07 | Outpatient (CLI) | payer MEDICAID, SELFPAY ==
--- NOTE | 2022-01-07 15:06 | ECHOCS_ITS ---
Reason For Study: aneurysm of heart, palps Procedure This was a 2D Doppler, Color Flow transthoracic echocardiogram. The study was technically difficult. Contrast injection was performed. Due to body habitus. Exam performed in department. Left Ventricle Based upon the 2D echocardiographic and contrast enhanced images obtained there appears to be grossly normal left ventricular size, wall motion, and systolic function. The estimated ejection fraction is 65 %. Unable to assess diastolic dysfunction. Right Ventricle Normal RV size. Normal systolic function. Atria Normal left atrium. Normal right atrium. No doppler evidence for ASD. Mitral Valve There is no mitral annular calcification. Normal mitral valve. Trivial mitral valve insufficiency. Tricuspid Valve Normal tricuspid valve. Trivial tricuspid valve insufficiency. Unable to estimate RV systolic pressure/pulmonary artery pressure due to technically difficult study. Aortic Valve The aortic valve is not well visualized. Pulmonic Valve The pulmonic valve is not well visualized. Great Vessels Normal sized aortic root. Pericardium/Pleural No pericardial effusion. Medication 22 gauge I.V. with prn adaptor inserted into right arm. Diluted definity 0.8ml given slow IV push to enhance endocardial definition. MMode/2D Measurements & Calculations LVIDd: 4.4 cm IVSd: 1.2 cm Ao root diam: 3.4 cm LVIDs: 3.0 cm LVPWd: 1.3 cm RVDd: 3.3 cm FS: 32.4 % LAV(MOD-bp): 47.7 ml LA A4 area: 13.5 cm2 LA dimension(2D): 3.9 cm LAV(MOD-bp) Indexed: 19.1 ml/m2 LAV(MOD-sp2): 50.4 ml LAV(MOD-sp4): 35.1 ml RA A4 area: 12.7 cm2 Doppler Measurements & Calculations Ao V2 max: 98.3 cm/sec LV V1 max: 93.2 cm/sec PA V2 max: 74.3 cm/sec Ao max P.9 mmHg LV V1 max P.5 mmHg ECHO/Echo Complete W/ Contrast Interpretation Summary The study was technically difficult. Contrast injection was performed. Based upon the 2D echocardiographic and contrast enhanced images obtained there appears to be grossly normal left ventricular size, wall motion, and systolic function The estimated ejection fraction is 65 %. Trivial mitral valve insufficiency. Trivial tricuspid valve insufficiency. Unable to estimate RV systolic pressure/pulmonary artery pressure due to techni sara difficult study. Unable to assess diastolic dysfunction. Ordering Physician: Fitz Ortiz Referring Physician: Glenn Jefferson Performed By: Anabela Lee RDCS, RVT
== END | disposition home or self-care (01) ==
LOC: CVS 15:05
PROVIDERS: PCP Family Medicine; Visit Provider Internal Medicine Cardiovascular Disease
DX: I25.3 Aneurysm of heart (principal)
CPT/HCPCS: 93306; Q9957; A4216; C8929

== ENCOUNTER → 2022-02-21 | Outpatient (CLI) | payer MEDICAID, SELFPAY ==
[2022-02-21 16:49] LABS: Mucous, Urine 0 SEEN /hpf (<or=2+); Red Blood Cells-Urine 0 SEEN /hpf (0-5)
[2022-02-21 18:07] LABS: Color, Urine Yellow (Yellow); Glucose, Dipstick Normal (Normal); Ketone-Dipstick 5 mg/dl (Negative); Leukocyte Esterase-Dipstick 100 /ul (Negative); Nitrite-Dipstick Positive (Negative); Occult Blood-Urine 25 /ul (Negative); Protein-Dipstick 15 mg/dl (Negative); Urine Bilirubin Dipstick Negative (Negative); Urine Clarity Turbid (Clear); Urine Urobilinogen 1 mg/dl (Normal)
[2022-02-21 18:56] LABS: White Blood Cells 5-10 SEEN /hpf (0-5)
[2022-02-21 18:57] LABS: Bacteria 4+ /hpf (None Seen); Calcium Oxalate Crystals Ur 3+ /hpf (<or=2+); Squamous Epithelial Cells - UA 0-5 SEEN /hpf (5-10)
== END | disposition home or self-care (01) ==
LOC: MTLAB 16:46
PROVIDERS: PCP Family Medicine; Referring Provider Internal Medicine Nephrology; Visit Provider Internal Medicine Nephrology
DX: N39.0 Urinary tract infection, site not specified (principal)
CPT/HCPCS: 36415; 81001; 87077; 87086; 87088; 87186

== ENCOUNTER → 2022-04-08 | Outpatient (CLI) | payer MEDICAID, SELFPAY ==
[2022-04-08 16:40] LABS: AST(SGOT) 17 U/L (15-37); Alanine Aminotransfer ALT/SGPT 24 U/L (13-56); Albumin, Serum 3.8 g/dL (3.2-5.0); Alkaline Phosphatase 75 U/L (45-117); Bilirubin, Direct 0.12 mg/dL (0.00-0.30); Cholesterol 178 mg/dL (200); Globulin 3.6 g/dL (2.2-4.2); High Density Lipoprotein 69 mg/dL; Protein, Total 7.4 g/dL (6.4-8.2); Triglycerides 151 mg/dL; Very Low Density Lipoprotein 30 mg/dL (5-40)
== END | disposition home or self-care (01) ==
LOC: LAB 14:54
PROVIDERS: PCP Family Medicine; Referring Provider Physician Assistant Medical; Visit Provider Physician Assistant Medical
DX: E78.2 Mixed hyperlipidemia (principal); I25.3 Aneurysm of heart; I25.10 Atherosclerotic heart disease of native coronary artery without angina pectoris; I10 Essential (primary) hypertension; R00.0 Tachycardia, unspecified
CPT/HCPCS: 36415; 80061; 80076

== ENCOUNTER → 2022-06-10 | Outpatient (CLI) | payer MEDICAID, SELFPAY ==
[2022-06-10 17:58] LABS: Protein, Urine (Random) 10.1 mg/dL (<11.9); Protein:Creat Ratio 141 mg/g CRE (0-200)
[2022-06-10 17:59] LABS: Anion Gap 5 (5-15); BUN 11 mg/dL (7-18); BUN/Creat Ratio 13.3 RATIO (10-20); Calcium,Total 9.7 mg/dL (8.5-10.1); Chloride 106 mmol/L (98-107); Creatinine, Serum 0.83 mg/dL (0.55-1.02); EST Glomerular Filtration Rate 77 mL/min (>60); Est Glom Filt Rate - Afr Amer 93 mL/min (>60); Glucose 134 mg/dL (74-106); Potassium 4.6 mmol/L (3.5-5.1); Sodium Level 140 mmol/L (136-145)
== END | disposition home or self-care (01) ==
LOC: MTLAB 16:24
PROVIDERS: PCP Family Medicine; Referring Provider Internal Medicine Nephrology; Visit Provider Internal Medicine Nephrology
DX: N20.0 Calculus of kidney (principal)
CPT/HCPCS: 36415; 80048; 82570; 84156

== ENCOUNTER → 2022-10-10 | Outpatient (CLI) | payer MEDICAID, SELFPAY ==
[2022-10-10 18:19] LABS: Anion Gap 4 (5-15); BUN 13 mg/dL (7-18); BUN/Creat Ratio 14.3 RATIO (10-20); Calcium,Total 9.6 mg/dL (8.5-10.1); Chloride 105 mmol/L (98-107); Creatinine, Serum 0.91 mg/dL (0.55-1.02); EST Glomerular Filtration Rate 69 mL/min (>60); Est Glom Filt Rate - Afr Amer 84 mL/min (>60); Glucose 176 mg/dL (74-106); Potassium 4.7 mmol/L (3.5-5.1); Sodium Level 136 mmol/L (136-145)
== END | disposition home or self-care (01) ==
LOC: MTLAB 15:45
PROVIDERS: PCP Family Medicine; Referring Provider Internal Medicine Nephrology; Visit Provider Internal Medicine Nephrology
DX: N18.2 Chronic kidney disease, stage 2 (mild) (principal)
CPT/HCPCS: 36415; 80048

== ENCOUNTER → 2022-10-14 | Outpatient (CLI) | payer MEDICAID, SELFPAY | END | disposition home or self-care (01) | LOC: MTLAB 14:57 | PROVIDERS: PCP Family Medicine; Referring Provider Internal Medicine Nephrology; Visit Provider Internal Medicine Nephrology | DX: N39.0 Urinary tract infection, site not specified (principal) | CPT/HCPCS: 87086; 87088 ==

== ENCOUNTER → 2023-01-15 | Outpatient (CLI) | payer MEDICAID, SELFPAY ==
[2023-01-15 19:23] LABS: Hemoglobin A1c 5.8 % (3.8-5.6)
== END | disposition home or self-care (01) ==
LOC: LAB 15:14
PROVIDERS: PCP Family Medicine; Referring Provider Physician Assistant Medical; Visit Provider Physician Assistant Medical
DX: I25.10 Atherosclerotic heart disease of native coronary artery without angina pectoris (principal); I25.3 Aneurysm of heart
CPT/HCPCS: 36415; 83036

== ENCOUNTER → 2023-02-17 | Outpatient (CLI) | payer MEDICAID, SELFPAY ==
--- NOTE | 2023-02-17 13:51 | ECHOCS_ITS ---
Reason For Study: ASHD Procedure This was a 2D Doppler, Color Flow transthoracic echocardiogram. The study was technically difficult. Contrast injection was performed. Exam performed in department. Left Ventricle Normal LV size. Left ventricular systolic function is normal. The estimated ejection fraction is 55 %. Stage 1 diastolic dysfunction. No regional wall motion abnormalities noted. Right Ventricle Normal RV size. Normal systolic function. Atria Normal left atrium. Normal right atrium. Mitral Valve Normal mitral valve. Tricuspid Valve Normal tricuspid valve. Aortic Valve Normal aortic valve. Pulmonic Valve Normal pulmonic valve. Great Vessels Normal aortic root. The pulmonary artery is normal size. Normal inferior vena cava. Pericardium/Pleural No pericardial effusion. Medication 22 gauge I.V. with prn adaptor inserted into left arm. Diluted definity 2.5ml given slow IV push to enhance endocardial definition. MMode/2D Measurements & Calculations RVDd: 3.4 cm Ao root diam: 3.9 cm LAV(MOD-bp): 55.0 ml LAV(MOD-bp) Indexed: 21.9 ml/m2 LAV(MOD-sp2): 63.7 ml LAV(MOD-sp4): 44.8 ml SV(MOD-sp4): 40.0 ml SV(sp4-el): 42.2 ml LVAd ap4: 27.6 cm2 LVLd ap4: 8.6 cm EDV(MOD-sp4): 72.5 ml EDV(sp4-el): 75.3 ml LVAs ap4: 16.7 cm2 LVLs ap4: 7.2 cm ESV(MOD-sp4): 32.4 ml ESV(sp4-el): 33.1 ml EF(MOD-sp4): 55.3 % EF(sp4-el): 56.0 % LA dimension(2D): 3.5 cm LA A4 area: 17.8 cm2 RA A4 area: 15.3 cm2 TAPSE: 1.4 cm Time Measurements MV dec time: 0.31 sec Doppler Measurements & Calculations MV E max raymon: 58.9 cm/sec Lat Peak E' Raymon: 9.6 cm/sec Med Peak E' Raymon: 5.9 cm/sec MV A max raymon: 66.1 cm/sec E/E' lat: 6.1 E/E' med: 10.0 MV E/A: 0.89 MV V2 max: 92.5 cm/sec MV dec slope: 206.7 cm/sec2 Ao V2 max: 123.6 cm/sec MV max P.4 mmHg Ao max P.1 mmHg MV V2 mean: 61.1 cm/sec Ao V2 mean: 93.3 cm/sec MV mean P.6 mmHg Ao mean P.9 mmHg MV V2 VTI: 30.8 cm Ao V2 VTI: 25.9 cm AV (velocity ratio): 0.95 LV V1 max: 122.2 cm/sec PA V2 max: 95.8 cm/sec LV V1 max P.0 mmHg PA V2 mean: 69.5 cm/sec LV V1 mean P.9 mmHg LV V1 mean: 94.7 cm/sec LV V1 VTI: 24.6 cm ECHO/Echo Complete W/ Contrast Interpretation Summary Normal LV size. Left ventricular systolic function is normal. The estimated ejection fraction is 55 %. Stage 1 diastolic dysfunction. Contrast injection was performed. Ordering Physician: Maricel Dukes Referring Physician: Maricel Dukes Performed By: Mar Antony RCS
== END | disposition home or self-care (01) ==
LOC: CVS 13:50
PROVIDERS: PCP Family Medicine; Referring Provider Physician Assistant Medical; Visit Provider Physician Assistant Medical
DX: I25.10 Atherosclerotic heart disease of native coronary artery without angina pectoris (principal)
CPT/HCPCS: 93306; Q9957; A4216; C8929

== ENCOUNTER 2024-05-09 11:33 | Emergency (ER) | payer MEDICAID, SELFPAY ==
[2024-05-09 11:35] VITALS: BP 132/84; PULSE 75; RESP 16; TEMP 36.6; O2SAT 98; BMI 43.2
--- NOTE | 2024-05-09 12:14 | CT_ITS ---
INDICATION: hx of rib fracture EXAMINATION: CT CHEST WITHOUT CONTRAST - CT Chest W/O Contrast Injection TECHNIQUE: Helically acquired images were obtained of the chest. A radiation dose optimization technique was used for this scan. IV Contrast dosage and agent: None. COMPARISON: None. FINDINGS: LUNGS, PLEURA AND LARGE AIRWAYS: No masses, consolidation, or edema. No pleural effusion or thickening. No pneumothorax. THYROID: No thyroid lesions. HEART AND PERICARDIUM: Heart size is normal. No pericardial effusion. CORONARY ARTERIES: Coronary artery calcification is seen. VESSELS: Thoracic aorta is not dilated. MEDIASTINUM AND JUDY: No mediastinal or hilar adenopathy. Esophagus is unremarkable. No hiatal hernia. UPPER ABDOMEN: No acute pathology. BONES: Acute nondisplaced fracture of the posterior lateral left eighth rib. CT/Chest without Contrast IMPRESSION: Acute nondisplaced fracture the posterior lateral left eighth rib. No pneumothorax or hemothorax. Electronically Signed: Eros Stuart MD at 14:20 EST ,
--- NOTE | 2024-05-09 12:23 | EX.ED.DYSGE1 ---
HPI <OTF Daley - Last Filed: 05/09/24 14:53> History of Present Illness Chief Complaint: Cough Narrative Narrative: Patient is a 60-year-old female with history of tobacco use, COPD, asthma, bipolar who presents to the emergency department for left-sided back pain, rib pain, ongoing cough. Patient states has been sick for the entire month in April. Patient was placed on a Z-Mikey as well as Augmentin. Patient states she then coughed and felt a crack in her left rib cage. Patient states she has a diagnosed left eighth rib fracture. Patient states she is still having severe pain, she is unsure if she is able to take a big breath. She denies any fever chills nausea or vomiting. PFS <OTF Daley - Last Filed: 05/09/24 14:53> [facility]LY [facility] Medical History (Updated 05/09/24 @ 14:26 by OTF Daley) Osteoporosis Aneurysm of heart Mixed hyperlipidemia Atherosclerotic heart disease of [place] coronary artery without angina pectoris Sinus tachycardia Bipolar 2 disorder Hyperprolactinemia Pituitary adenoma Essential hypertension Vitamin deficiency Pituitary disorder Breast lump Asthma Anxiety and depression Home Medications ?Medication ?Instructions ?Recorded ?Last Taken ?Type cetirizine 10 mg tablet (Zyrtec) 10 mg PO DAILY 07/29/16 Unknown History cholecalciferol (vitamin D3) 50 2,000 unit PO DAILY 04/13/17 Unknown History mcg (2,000 unit) capsule melatonin 5 mg capsule 5 mg PO QHS PRN PRN Sleep 10/20/17 Unknown History albuterol sulfate 90 mcg/actuation 2 puff inhalation Q4H PRN Sob &/Or 07/06/18 Unknown History aerosol inhaler (ProAir HFA) Wheezing cabergoline 0.5 mg tablet 0.5 mg PO QWEEK 07/06/18 Unknown History furosemide 20 mg tablet 20 mg PO DAILY PRN water retention 07/06/18 Unknown History nitroglycerin 0.4 mg sublingual 0.4 mg sublingual Q5-15M PRN chest 07/06/18 Unknown History tablet pain multivitamin 1 tab PO DAILY 05/28/21 Unknown History methylphenidate HCl 36 mg 36 mg PO DAILY 09/18/21 Unknown History tablet,extended release 24 hr (Concerta) prednisone 20 mg tablet 5 mg PO DAILY 09/18/21 Unknown History albuterol sulfate 2.5 mg/3 mL 2.5 mg inhalation Q4H PRN 12/06/21 Unknown History (0.083 %) solution for nebulization budesonide-formoterol HFA 80 2 puff inhalation BID 12/06/21 Unknown History mcg-4.5 mcg/actuation aerosol inhaler (Symbicort) vilazodone 10 mg tablet (Viibryd) 10 mg PO DAILY 12/06/21 Unknown History atorvastatin 20 mg tablet 20 mg PO DAILY #90 tabs 05/05/24 Unknown Rx oxycodone-acetaminophen 5 mg-325 1 tab PO Q8H PRN pain 3 days #10 05/09/24 Unknown Rx mg tablet (Percocet) tabs Allergy/AdvReac Type Severity Reaction Status Date / Time citalopram hydrobromide Allergy Severe Anaphylaxis Verified 05/09/24 11:35 (From Celexa) methylprednisolone Allergy Intermediate Other Verified 05/09/24 11:35 moxifloxacin HCl (From Allergy Intermediate Hives Verified 05/09/24 11:35 Avelox) doxycycline Allergy Unknown Verified 05/09/24 11:35 naproxen sodium (From Aleve) Allergy Hives Verified 05/09/24 11:35 Family History Mother Osteoporosis Kidney disease High cholesterol Diabetes Arthritis Congestive heart failure Hypertension Father Hypertension High cholesterol Heart disease Grandmother Heart disease Diabetes Surgical History History of tubal ligation History of ventral hernia repair History of cardiac catheterization (~04/14/17) H/O: hysterectomy Social History Smoking Status: Current every day smoker tobacco type: cigarettes second hand exposure: Yes alcohol intake: never substance use type: does not use ROS <OTF Daley - Last Filed: 05/09/24 14:53> ROS ED ROS Narrative Constitutional: Negative for fever, chills, weight loss, weakness Eyes: Negative for vision loss, vision change, double vision ENT: Negative for any sore throat, ear pain, congestion Cardiovascular: Negative for any chest pain, tightness, palpitations Respiratory: Negative for any sputum production, hemoptysis, dyspnea, dyspnea on exertion, orthopnea. Positive for cough, chest wall pain Gastrointestinal: Negative for any abdominal pain, nausea, vomiting, diarrhea, constipation, blood in stool, blood in vomit : Negative for any urinary frequency, dysuria, retention, blood in urine Muscle skeletal: Negative for any neck pain, back pain Neurological: Negative for any headache, syncope, dizziness Skin: Negative for any rashes, itching, abrasions, lacerations Psychiatric: Negative for any depression, anxiety, stress, suicidal ideation, homicidal ideation Hematologic: Negative for any excessive bruising, easy bleeding EXAM <HORTENCIA DaleyC - Last Filed: 05/09/24 14:53> Physical Exam Narrative Exam Narrative: Vital signs reviewed. Patient appears to be in no obvious distress, vital signs are stable. Patient speak complete sentences. HEET: Head normocephalic atraumatic, TMs clear bilaterally. Posterior pharynx is clear, moist mucous membranes. Nares clear bilaterally. Neck: Supple with no lymphadenopathy or tenderness. No signs of meningismus. Cardiac: Regular rate and rhythm no murmurs gallops or rubs, equal peripheral pulses bilaterally. Respiratory: Lungs clear to auscultation bilaterally. Patient has left-sided lateral chest wall pain, lateral posterior chest wall pain. No crepitus. Breath sounds heard throughout lung zones. Abdomen: Soft, nontender, nondistended. No abdominal bruit or pulsatile masses. No hepatosplenomegaly Extremities: No peripheral edema, no signs of gross trauma or deformity. Active full range of motion of all extremities. Neuro: Cranial nerves II through XII intact, no focal neurological deficits. Skin: Clean dry and intact with no rash, purpura, petechiae, vesicles or pustules. Backs/flank: No CVA tenderness, no midline spinal tenderness, no deformity. Psych: Normal mood and affect. No SI, HI or acute psychosis. Const Vital Signs: 05/09/24 11:33 05/09/24 11:35 05/09/24 13:33 Temperature 97.9 F Temperature Source Oral Pulse Rate 75 81 Respiratory Rate 16 18 Respiratory Depth Shallow Respiratory Pattern Normal Blood Pressure 132/84 H 128/86 H Blood Pressure Mean 100 100 Pulse Ox 98 98 Oxygen Delivery Method Room Air Room Air <Dr. Mata Dixon, DO - Last Filed: 05/09/24 15:58> Physical Exam Const Vital Signs: 05/09/24 11:33 05/09/24 11:35 05/09/24 13:33 Temperature 97.9 F Temperature Source Oral Pulse Rate 75 81 Respiratory Rate 16 18 Respiratory Depth Shallow Respiratory Pattern Normal Blood Pressure 132/84 H 128/86 H Blood Pressure Mean 100 100 Pulse Ox 98 98 Oxygen Delivery Method Room Air Room Air [facility] <OTF Daley - Last Filed: 05/09/24 14:53> [facility] Radiography Diagnostic Testing: Clinical Impression(s) from Imaging Studies Chest CT 05/09/24 12:14 IMPRESSION: Acute nondisplaced fracture the posterior lateral left eighth rib. No pneumothorax or hemothorax. Electronically Signed: Eros Stuart MD at 14:20 EST , Treatment and Re-Evaluation :: Differential diagnosis includes however is not limited to: Multiple fractured ribs, pneumothorax, hemothorax, ongoing pneumonia, viral syndrome, muscle spasm Patient appears generally well, vital signs are stable, patient is nontoxic-appearing. Presenting to the emergency department with complaints of cough, left-sided rib pain secondary to fracture. Secondary the patient having continued pain, patient will receive a CT scan of the chest without contrast. Patient given oral oxycodone. Will be reevaluated, all radiologic examinations were read, reviewed by the emergency department attending. From these reads, a plan of care will be put in place. Patient CT scan of the chest shows acute nondisplaced fracture of the posterior lateral left eighth rib, no pneumothorax or hemothorax. Secondary to this finding, do not believe that the patient needs any antibiotics. Patient will be given a prescription for Percocet. She is will be given a incentive spirometer. She instructed to continue to follow-up outpatient. All questions answered, patient stable for discharge <Dr. Mata Dixon DO - Last Filed: 05/09/24 15:58> [facility] Radiography Diagnostic Testing: Clinical Impression(s) from Imaging Studies Chest CT 05/09/24 12:14 IMPRESSION: Acute nondisplaced fracture the posterior lateral left eighth rib. No pneumothorax or hemothorax. Electronically Signed: Eros Stuart MD at 14:20 EST , Treatment and Re-Evaluation :: Differential diagnosis includes however is not limited to: Multiple fractured ribs, pneumothorax, hemothorax, ongoing pneumonia, viral syndrome, muscle spasm Patient appears generally well, vital signs are stable, patient is nontoxic-appearing. Presenting to the emergency department with complaints of cough, left-sided rib pain secondary to fracture. Secondary the patient having continued pain, patient will receive a CT scan of the chest without contrast. Patient given oral oxycodone. Will be reevaluated, all radiologic examinations were read, reviewed by the emergency department attending. From these reads, a plan of care will be put in place. Patient CT scan of the chest shows acute nondisplaced fracture of the posterior lateral left eighth rib, no pneumothorax or hemothorax. Secondary to this finding, do not believe that the patient needs any antibiotics. Patient will be given a prescription for Percocet. She is will be given a incentive spirometer. She instructed to continue to follow-up outpatient. All questions answered, patient stable for discharge ED attending note: I evaluated the patient in conjunction with the JAS. I agree with his/her statements and above findings. I have personally performed a face to face assessment of the patient and have reviewed the JAS Note. I performed a substantive portion of the visit including all aspects of the following. I personally saw the patient performed chart review, physical exam, reviewed labs, imaging (if obtained), and formulated a treatment and management plan. This note was generated with [employer] dictation software. It may contain incorrect words, spelling, and punctuation that were not noted in review of the chart prior to signing. Discharge Plan Triage Chief Complaint: Cough ED Midlevel Provider: Fitz Keith ED Provider: Mata Dixon Dx/Rx/DC Orders Clinical Impression: Cough, Closed rib fracture Instructions: ED Rib Fracture Prescriptions: New oxycodone-acetaminophen [Percocet] 5-325 mg tablet 1 tab PO Q8H PRN (Reason: pain) 3 Days Qty: 10 0RF No Action melatonin 5 mg capsule 5 mg PO QHS PRN PRN (Reason: Sleep) furosemide 20 mg tablet 20 mg PO DAILY PRN (Reason: water retention) cabergoline 0.5 mg tablet 0.5 mg PO QWEEK nitroglycerin 0.4 mg tablet, sublingual 0.4 mg SUBLINGUAL Q5-15M PRN (Reason: chest pain) ProAir HFA 90 mcg/actuation HFA aerosol inhaler 2 puff INHALATION Q4H PRN (Reason: Sob &/Or Wheezing) budesonide-formoterol [Symbicort] 80-4.5 mcg/actuation HFA aerosol inhaler 2 puff inhalation BID albuterol sulfate 2.5 mg /3 mL (0.083 %) solution for nebulization 2.5 mg inhalation Q4H PRN cetirizine [Zyrtec] 10 MG tablet 10 mg PO DAILY cholecalciferol (vitamin D3) 2,000 UNIT capsule 2,000 unit PO DAILY multivitamin Tablet 1 tab PO DAILY methylphenidate HCl [Concerta] 36 mg Tablet Extended Release 24hr 36 mg PO DAILY prednisone 20 mg Tablet 5 mg PO DAILY Patient Comments: has to be peach 20mg tablet vilazodone [Viibryd] 10 mg tablet 10 mg PO DAILY atorvastatin 20 mg tablet 20 mg PO DAILY Qty: 90 3RF Primary Care Provider: Glenn Jefferson Referrals: Glenn Jefferson MD [Primary Care Provider] - Activity Restrictions/Additional Instructions: Use the incentive spirometer 10 times every hour while resting and awake. Return for any worsening chest pain, fever chills nausea vomiting. Print Language: Omani Disposition Disposition: Home, Self Care Discharge Date/Time: 05/09/24 14:38
[2024-05-09 13:33] VITALS: BP 128/86; PULSE 81; RESP 18; O2SAT 98
== END 2024-05-09 14:38 | disposition home or self-care (01) ==
PROVIDERS: Emergency Provider Emergency Medicine; PCP Family Medicine; Referring Provider Emergency Medicine; Visit Provider Emergency Medicine
DX: S22.32XA Fracture of one rib, left side, initial encounter for closed fracture (principal); F31.9 Bipolar disorder, unspecified; J44.9 Chronic obstructive pulmonary disease, unspecified; I25.10 Atherosclerotic heart disease of native coronary artery without angina pectoris; F17.210 Nicotine dependence, cigarettes, uncomplicated; X58.XXXA Exposure to other specified factors, initial encounter
CPT/HCPCS: 71250; 99282

== ENCOUNTER → 2024-05-17 | Outpatient (CLI) | payer MEDICAID, SELFPAY ==
[2024-05-17 14:01] LABS: Bacteria 0 SEEN /hpf (None Seen); Red Blood Cells-Urine 0 SEEN /hpf (0-5); White Blood Cells 0 SEEN /hpf (0-5)
[2024-05-17 15:12] LABS: Color, Urine Yellow (Yellow); Glucose, Dipstick Normal (Normal); Ketone-Dipstick Negative (Negative); Leukocyte Esterase-Dipstick Negative /ul (Negative); Nitrite-Dipstick Negative (Negative); Occult Blood-Urine Negative /ul (Negative); Protein-Dipstick Negative (Negative); Specific Gravity, Urine 1.015 (1.002-1.030); Urine Bilirubin Dipstick Negative (Negative); Urine Clarity Sl. Cloudy (Clear); Urine Urobilinogen Normal (Normal); Urine pH 6.5 (5.0 - 8.0)
[2024-05-17 15:18] LABS: Calcium Oxalate Crystals Ur RARE /hpf (<or=2+); Mucous, Urine 1+ /hpf (<or=2+); Squamous Epithelial Cells - UA 0-5 SEEN /hpf (5-10)
== END | disposition home or self-care (01) ==
LOC: MTLAB 13:51
PROVIDERS: PCP Family Medicine; Referring Provider Internal Medicine Nephrology; Visit Provider Internal Medicine Nephrology
DX: N39.0 Urinary tract infection, site not specified (principal)
CPT/HCPCS: 81001; 87086; 87088

== ENCOUNTER → 2024-08-12 | Outpatient (CLI) | payer MEDICAID, SELFPAY ==
[2024-08-12 15:41] LABS: Absolute Lymphocyte Count 1.12 X10^3/uL (0.83-4.51); Absolute Neutrophil Count 5.2 X10^3/uL (2.0-7.7); Basophil# 0.03 X10^3/uL; Basophil% 0.4 % (0-1); Eosinophil# 0.08 X10^3/uL; Eosinophils% 1.2 % (0-5); Hematocrit 43.6 % (37-47); Hemoglobin 14.7 g/dL (12.0-15.0); Lymphocyte # 1.12 X10^3/ul (0.83-4.51); Lymphocyte % 16.4 % (19-41); Mean Corp Hgb Conc 33.7 g/dL (32-36); Mean Corpuscular Hgb 28.6 pg (27.0-32.0); Mean Corpuscular Volume 84.8 fL (81-99); Mean Platelet Vol. 10.9 fl (6.2-12.0); Monocyte# 0.38 X10^3/uL; Monocyte% 5.5 % (0-10); NRBC Flagged by Analyzer 0 % (0-5); Neutrophil # 5.23 X10^3/uL (2.7-7.7); Neutrophil % 76.4 % (47-70); Platelet Count 200 K/mm3 (150-450); RBC Distribution Width SD 40.1 fl (35.1-43.9); Red Blood Count 5.14 M/mm3 (4.2-5.4); White Blood Count 6.9 K/mm3 (4.4-11.0)
[2024-08-12 15:57] LABS: Hemoglobin A1c 5.8 % (<=5.6)
[2024-08-12 21:58] LABS: ALB/GLOB Ratio 1.6 RATIO (0.9-2.4); AST(SGOT) 25 U/L (<=31); Alanine Aminotransfer ALT/SGPT 26 U/L (<=34); Albumin, Serum 4.3 g/dL (3.5-5.0); Alkaline Phosphatase 76 U/L (35-104); Anion Gap 13 (5-15); BUN 14 mg/dL (4-19); BUN/Creat Ratio 18.8 RATIO (10-20); Calcium 10.1 mg/dL (7.6-11.0); Carbon Dioxide 21.7 mmol/L (22.0-29.0); Chloride 104 mmol/L (96-108); Creatinine, Serum 0.75 mg/dL (0.70-1.20); EST Glomerular Filtration Rate 95 (>60); Globulin 2.7 g/dL (2.2-4.2); Glucose 127 mg/dL (70-99); Potassium 4.4 mmol/L (3.3-5.1); Sodium Level 139 mmol/L (133-145); Thyroid Stim Hormone (TSH) 0.918 uIU/mL (0.300-4.200)
[2024-08-12 22:32] LABS: Cholesterol 151 mg/dL (<=200); High Density Lipoprotein 66 mg/dL; Low Density Lipoprotein Calc. 57 mg/dL; Triglycerides 142 mg/dL; Very Low Density Lipoprotein 28 mg/dL (5-40); cholesterol:hdl ratio screen 2.31
== END | disposition home or self-care (01) ==
PROVIDERS: PCP Family Medicine; Referring Provider Nurse Practitioner Family; Visit Provider Nurse Practitioner Family
DX: I25.10 Atherosclerotic heart disease of native coronary artery without angina pectoris (principal); I10 Essential (primary) hypertension; R06.02 Shortness of breath; E78.2 Mixed hyperlipidemia; R53.83 Other fatigue
CPT/HCPCS: 36415; 80053; 80061; 83036; 84443; 85025

== ENCOUNTER → 2024-08-30 | Outpatient (CLI) | payer MEDICAID, SELFPAY ==
--- NOTE | 2024-08-30 14:05 | BD_ITS ---
PROCEDURE: DEXA BONE DENSITY STUDY 08/30/2024 REASON FOR EXAM: F, age 54 y/o . Postmenopausal. TECHNIQUE: DXA scan of lumbar spine and both hips., REFERENCE LINKS: ISCD Adult Positions COMPARISON: Comparison is made with prior study dated January 06, 2019. FINDINGS: Lumbar Spine (L1-L4): g/cm2 (0.762)/T-score (-2.6)/Z-score (-1.6) findings are suggestive of osteoporosis with a high fracture risk. Left Femur Total: g/cm2 (0.913)/T-score (-0.2)/Z-score (0.4) Left Femoral Neck: g/cm2 (0.815)/T-score (-0.3)/Z-score (0.6) Right Femur Total: g/cm2 (0.833)/T-score (-0.9)/Z-score (-0.3) Right Femoral Neck: g/cm2 (0.727)/T-score (-1.1)/Z-score (-0.1) The T-Scores on the most recent prior examination were: Lumbar Spine (L1-L4): There has been worsening of bone density since the previous examination. Left Femur Total: Worsening by 5.8%. Right Femur Total: Worsening by 9.3%. BD/Dexa Bone Density Study IMPRESSION: The patient is considered osteoporotic as outlined below according to World Hea th Organization (WHO) criteria with a high fracture risk. There has been worsening of bone density since the previous exa mination. Recommend follow-up as clinically warranted. Reading Location: [place] [id number]
== END | disposition home or self-care (01) ==
LOC: OPBD 14:00
PROVIDERS: PCP Family Medicine; Referring Provider Registered Nurse; Visit Provider Registered Nurse
DX: M81.8 Other osteoporosis without current pathological fracture (principal); Z78.0 Asymptomatic menopausal state
CPT/HCPCS: 77080

== ENCOUNTER → 2024-09-16 | Outpatient (CLI) | payer MEDICAID, SELFPAY ==
--- NOTE | 2024-09-16 14:04 | RAD_ITS ---
EXAM: XR Lumbosacral Spine Flexion/Extension Only, 2 or 3 Views CLINICAL INDICATION: PAIN TECHNIQUE: Lateral flexion/extension views of the lumbar spine and sacrum. COMPARISON: No relevant prior studies available. FINDINGS: VERTEBRAE: Mild multilevel endplate degenerative changes and disc disease of of 3 to S1. Moderate facet arthropathy of L4-S1. Normal sagittal alignment. No acute fracture or significant dynamic instability. SACRUM/COCCYX: Unremarkable as visualized. No acute fracture. DISC SPACES: No acute findings. No significant narrowing. SOFT TISSUES: Unremarkable. RAD/L/S Spine Min 4 Views IMPRESSION: 1. No acute fracture or significant dynamic instability. 2. Degenerative changes as above. Reading Location: [id number]
[2024-09-16 16:14] LABS: Anion Gap 12 (5-15); BUN 15 mg/dL (4-19); BUN/Creat Ratio 19.5 RATIO (10-20); Calcium,Total 9.6 mg/dL (7.6-11.0); Carbon Dioxide 24.1 mmol/L (21.0-32.0); Chloride 108 mmol/L (98-108); Creatinine, Serum 0.77 mg/dL (0.70-1.20); EST Glomerular Filtration Rate 92 (>60); Glucose 136 mg/dL (70-99); Potassium 5.1 mmol/L (3.3-5.1); Sodium Level 143 mmol/L (133-145)
[2024-09-16 17:19] LABS: Protein, Urine (Random) 7.2 mg/dL (0.0-12.0); Protein:Creat Ratio 122 mg/g CRE (0-200)
== END | disposition home or self-care (01) ==
LOC: MTLAB 14:03
PROVIDERS: PCP Family Medicine; Referring Provider Student in an Organized Health Care Education/Training Program; Visit Provider Student in an Organized Health Care Education/Training Program
DX: M54.50 Low back pain, unspecified (principal); N18.2 Chronic kidney disease, stage 2 (mild)
CPT/HCPCS: 36415; 72110; 80048; 82570; 84156

== ENCOUNTER → 2024-09-21 | Outpatient (CLI) | payer MEDICAID, SELFPAY ==
--- NOTE | 2024-09-21 12:49 | CT_ITS ---
PROCEDURE: LOW DOSE CT LUNG SCREENING 09/21/2024 REASON FOR EXAM: H/O TOBACCO DEPENDENCY TECHNIQUE: Low Dose CT Lung screening without contrast. Coronal and Sagittal reformats were generated. One or more dose reduction techniques were used (e.g., Automated exposure control, adjustment of the mA and/or kV according to patient size, use of iterative reconstruction technique). REFERENCE LINK: [employer] Lung-RADS RADIATION DOSE SUMMARY: CTDlvol: 4.02 mGy DLP: 138.93 mGycm COMPARISON: None. FINDINGS: Note that evaluation of the vasculature, angelina, and soft tissues is limited in the absence of IV contrast. Exam limited by generalized photon starvation. Heart/pericardium:Moderate coronary atherosclerosis and/or stents. Aorta: Unremarkable. Pulmonary arteries: Mildly enlarged main pulmonary artery which can be seen in pulmonary arterial hypertension. Lymph nodes: Unremarkable. Lungs/pleura: Bibasilar atelectasis/scarring. Airways: Unremarkable. Chest wall: Unremarkable. Upper abdomen: Better evaluated on concurrent CT abdomen and pelvis, reported separately.. Musculoskeletal: Demineralization. Mild spondylosis. Trace to mild thoracic levoscoliosis may be positional. Old LEFT rib fractures, one of which is ununited. CT/Low Dose CT Lung Screening IMPRESSION: 1. Lung-RADS category: 1S (negative); continue annual screening with LDCT. 2. Other clinically significant or potentially significant non-lung cancer find ings: Moderate coronary atherosclerosis and/or stents.. 3. Additional description as above. Recommendations per [employer]. Lung CT Screening Reporting and Data System (Lung-RADS) v. 202 Reading Location: [id number]
--- NOTE | 2024-09-21 12:49 | CT_ITS ---
PROCEDURE: ABDOMEN/PELVIS WITH CONTRAST 09/21/2024 REASON FOR EXAM: VENTRAL HERNIA TECHNIQUE: Abdomen and pelvis CT with intravenous contrast. Coronal and sagittal reformats were generated. PATIENT PREPARATION: Per protocol ORAL CONTRAST TYPE: Administered, however contrast type and dose information was not provided. CONTRAST: Isovue-300 VOLUME: 73 mL One or more dose reduction techniques were used (e.g., Automated exposure control, adjustment of the mA and/or kV according to patient size, use of iterative reconstruction technique. RADIATION DOSE SUMMARY: CTDlvol: 9.97+ 24.18 mGy DLP: 1315.82 mGycm COMPARISON: None FINDINGS: Lung bases: Better evaluated on concurrent screening CT chest, reported separately. Liver: Unremarkable. Spleen: Unremarkable. Gallbladder: Unremarkable. Pancreas: Unremarkable. Adrenals: Unremarkable. Kidneys: 3 mm nonobstructing intrarenal calculus on the LEFT. Bowel: Unremarkable. Normal caliber appendix. Lymph nodes: Unremarkable. Vasculature: Trace to mild atherosclerosis. Peritoneum: Unremarkable. Bladder: Underdistended and suboptimally evaluated, grossly unremarkable. Reproductive Organs: Hysterectomy. Body Wall: Ventral hernia repair with mesh. No recurrent ventral hernia identified. Small LEFT and probably tiny RIGHT fat containing femoral hernias. Bones: Old LEFT rib fractures, at least one of which is ununited. CT/Abdomen/Pelvis WITH Contrast IMPRESSION: 1. Ventral hernia repair with mesh. No recurrent ventral hernia identified. 2. Additional description as above. Reading Location: [id number]
== END | disposition home or self-care (01) ==
LOC: CT 12:48
PROVIDERS: PCP Family Medicine; Referring Provider Surgery; Visit Provider Surgery
DX: F17.211 Nicotine dependence, cigarettes, in remission (principal); Z98.890 Other specified postprocedural states; Z87.19 Personal history of other diseases of the digestive system
CPT/HCPCS: 71271; 74177; Q9967

== ENCOUNTER 2024-09-23 08:53 | Day surgery (SDC) | payer MEDICAID, SELFPAY ==
--- NOTE | 2024-09-19 11:56 | PAT.ANE_ITS ---
Pre-Assessment Diagnosis/Proposed Procedure Planned Operative Procedure(s): EGD Anesthesia History Anesthesia History - rehabilitation therapy technician: Anesthesia History - rehabilitation therapy technician Hx Hospitalization No 09/19/24 11:14 Any Problems With Anesthesia No 09/19/24 11:14 Cholinesterase deficiency No 09/19/24 11:14 You/Your Family Experience No 09/19/24 11:14 fever (hyperthermia) with Relationship Recent Exposure to Contagious No 11/05/18 06:49 Disease Does patient have nerve No 09/19/24 11:14 stimulator Patient instructed to have device shut off --Does patient have Pacemaker or ICD? When Was Last Pacemaker Check QUESTION #4 FULL TEXT: You/Your Family Experience fever (hyperthermia) with Anesthesia Last Oral Intake Last Oral intake: Last Oral Intake NPO since Meds taken in AM with sips of water? Meds patient instructed to take am of surgery PONV PONV - rehabilitation therapy technician: PONV - rehabilitation therapy technician Female Yes 09/19/24 11:14 HX of Motion Sickness No 09/19/24 11:14 HX of N/V After Surgery Yes 09/19/24 11:14 Non-Smoker Yes 09/19/24 11:14 Duration of Surgery greater No 09/19/24 11:14 than 60 minutes Number of Risk Factors 3 09/19/24 11:14 PONV Score Moderate Risk 09/19/24 11:14 Height & Weight Height & Weight: Anesthesia: Height & Weight Height 5 ft 8 in 08/23/24 14:11 Respiratory Assessment Respiratory Assessment - rehabilitation therapy technician: Respiratory Tract Infection Hx - rehabilitation therapy technician Hx Respiratory Tract Infection No: . 09/19/24 11:14 STOP Sleep Apnea STOP Sleep Apnea - rehabilitation therapy technician: STOP Sleep Apnea - rehabilitation therapy technician Hx Hypertension No 09/19/24 11:14 Hx Sleep Apnea No: . 09/19/24 11:14 CPAP No 09/19/24 11:14 BIPAP No 09/19/24 11:14 Do you snore loudly (louder No 09/19/24 11:14 than talking or can be heard Do you often feel tired/ No 09/19/24 11:14 fatigued/ sleepy during daytime? Has anyone observed you stop No 09/19/24 11:14 breathing during sleep? STOP Results Negative 09/19/24 11:14 QUESTION #5 FULL TEXT : Do you snore loudly (louder than talking or can be heard through closed doors)? Tobacco Use History Tobacco Use History - rehabilitation therapy technician: Tobacco Use History - rehabilitation therapy technician Tobacco Use Smoking Status Former smoker 09/19/24 11:14 Hx Tobacco Use Yes 09/19/24 11:14 Years Smoking Packs Smoked per Day Smoking Cessation Date was Yes - quit smoking within 15 09/19/24 11:14 within the last 15 years years Hx Smoking Cessation Date Hx Smoking Cessation Counseling Hematologic Medial History Hematologic Hx - rehabilitation therapy technician: Hematologic Medical Hx - retail stocker Hx of Blood Transfusion No 09/19/24 11:14 Hx of Transfusion in last 3 No 09/19/24 11:14 Months Date of Last Transfusion (if within last 3 months) Ever experience any problems No 09/19/24 11:14 with transfusion(s)? Specify any problems Hx of Preganancy in last 3 No 09/19/24 11:14 Months Nurse Filling Out Transfusion VCHRISTIN 09/19/24 11:14 & Questions: Date: 09/19/24 09/19/24 11:14 Time: 11:15 09/19/24 11:14 Patient unable to answer at this time (ie. confused, unrespo /Reproduction History /Reproductive History - rehabilitation therapy technician: /Reproductive Hx- rehabilitation therapy technician Hx Now No 09/19/24 11:14 Gestational Age (in weeks): EDC: Hx Hx Para Hx Section SAB No 09/19/24 11:14 [facility] Medical History (Updated 09/19/24 @ 11:14 by Leonor Young) Wears glasses Anxiety Depression Post-menopausal History of steroid therapy Arthritis History of renal disease Kidney stone High cholesterol Excessive bleeding Back pain Gastric reflux Former smoker Sleep apnea History of edema History of normal Holter exam History of echocardiogram History of stress test Cardiology follow-up encounter Diarrhea Constipation Nausea Epigastric pain Osteoporosis Aneurysm of heart Mixed hyperlipidemia Atherosclerotic heart disease of [place] coronary artery without angina pectoris Sinus tachycardia Bipolar 2 disorder Hyperprolactinemia Pituitary adenoma Essential hypertension Vitamin deficiency Pituitary disorder Breast lump Asthma Anxiety and depression Home Medications ?Medication ?Instructions ?Recorded ?Last Taken ?Type cetirizine 10 mg tablet (Zyrtec) 10 mg PO DAILY Unknown History cholecalciferol (vitamin D3) 50 2,000 unit PO DAILY Unknown History mcg (2,000 unit) capsule albuterol sulfate 90 mcg/actuation 2 puff inhalation Q 4H PRN Sob &/Or 07/06/18 Unknown History aerosol inhaler (ProAir HFA) Wheezing cabergoline 0.5 mg tablet 0.5 mg PO QWEEK 07/06/18 Unk nown History methylphenidate HCl 36 mg 36 mg PO DAILY 09/18/21 Unkn own History tablet,extended release 24 hr (Concerta) albuterol sulfate 2.5 mg/3 mL 2.5 mg inhalation Q4H [place] N 12/06/21 Unknown History (0.083 %) solution for nebulization shortness of breat h or wheezing budesonide-formoterol HFA 80 2 puff inhalation BID Unknown History mcg-4.5 mcg/actuation aerosol inhaler (Symbicort) atorvastatin 20 mg tablet 20 mg PO DAILY #90 tabs 11/2 07/08 Unknown Rx melatonin 5 mg capsule 20 mg PO QHS Sleep 08/12/24 Unknown History nitroglycerin 0.4 mg sublingual 0.4 mg sublingual Q5-1 5M PRN chest 08/12/24 Unknown Rx tablet pain #28 tabs spironolactone 25 mg tablet 25 mg PO QDAY PRN edema Unknown History ascorbic acid (vitamin C) 500 mg 500 mg PO QDAY Unknown History chewable tablet elderberry fruit 350 mg capsule 350 mg PO DAILY Unknown History multivitamin 1 tab PO DAILY 09/13/24 Unkn own History prednisone 10 mg tablet 5 mg PO QDAY 09/13/24 Unknow n History fluticasone propionate 50 2 spray intranasal PRN 09/19 Unknown History mcg/actuation nasal spray,suspension vilazodone 10 mg tablet 10 mg PO DAILY 09/19/24 Unkn own History Allergy/AdvReac Type Severity Reaction Status Date / Time citalopram hydrobromide Allergy Severe Anaphylaxis Verified 09/19/24 10:56 (From Celexa) methylprednisolone Allergy Intermediate Other Verified 09/19/24 10:56 moxifloxacin HCl (From Allergy Intermediate Hives Verified 09/19/24 10:56 Avelox) doxycycline Allergy Unknown Verified 09/19/24 10:56 naproxen sodium (From Aleve) Allergy Hives Verified 09/19/24 10:56 Family History Mother Osteoporosis Kidney disease High cholesterol Diabetes Arthritis Congestive heart failure Hypertension Father Hypertension High cholesterol Heart disease Grandmother Heart disease Diabetes Surgical History (Updated 09/19/24 @ 11:14 by Leonor Young) Hx of hernia repair Hx of cystoscopy History of tubal ligation History of ventral hernia repair History of cardiac catheterization (~04/14/17) H/O: hysterectomy Social History Smoking Status: Former smoker quit date: 04/15/24 second hand exposure: Yes alcohol intake: never substance use type: does not use Audit: Pertinent Findings Pertinent Findings EKG Perinent findings: 12/06/2021. Sinus rhythm. Left axis deviation. Left anterior fascicular block. Incomplete right bundle branch block is possible. Stress test pertinent findings: 03/06/2017. Essentially negative. EF 65%. Echo (EF%) pertinent findings: 02/17/2023. Normal size normal function EF 55%. Consult pertinent findings: Cardiology 08/12/2024. History of cardiac catheterization. Minimal luminal irregularities LAD and left circumflex. Appears stable. No changes. Hypertension. Chronic. Currently stable on medication. Recommendation Anesthesia Recommendation Anesthesia recommendation: OPTIMIZED for anesthesia
[2024-09-23] VITALS (7 sets, daily range): BP systolic 85–112; BP diastolic 67–79; PULSE 71–88; RESP 16; TEMP 35.8–36.5; O2SAT 95–97; BMI 46.3
--- NOTE | 2024-09-23 09:30 | PCM.PRE.AN2 ---
ASA Classification* ASA Classification ASA Classification: 3 Assessment & Plan Anesthesia* Anesthesia Assessment Anesthesia Assessment: Discussed sedation and/or anesthesia options, risks, benefits, and alternatives with patient/parents/legal guardian/POA. Questions invited. The patient/parents/legal guardian/POA seems to understand and agrees to proceed with anesthesia plan. Reviewed the physical assessment, medical history, allergy history and patient home medications list prior to surgery/procedure/anesthetic and documented any changes. Performed airway and anesthesia risk assessments. Anesthesia Type Anesthesia Type: MAC Anesthesia Focused Assessment* Temperature: 96.4 F Pulse Rate: 88 Blood Pressure: 112/78 Respiratory Rate: 16 Pulse Ox: 96 Airway Assessment Mouth opens: >3 cm Mallampati Score: II Focused Labs Anesthesia Preop lab: CBC WBC 6.9 K/mm3 (4.4-11.0) 08/12/24 14:59 08/12/24 RBC 5.14 M/mm3 (4.2-5.4) 08/12/24 14:59 08/12/24 Hgb 14.7 g/dL (12.0-15.0) 08/12/24 14:59 08/12/24 Hct 43.6 % (37-47) 08/12/24 14:59 08/12/24 Plt Count 200 K/mm3 (150-450) 08/12/24 14:59 08/12/24 CHEMISTRY Potassium 5.1 mmol/L (3.3-5.1) 09/16/24 14:06 09/16/24 Sodium 143 mmol/L (133-145) 09/16/24 14:06 09/16/24 Magnesium 2.4 mg/dL (1.6-2.6) 08/13/21 11:11 08/13/21 Phosphorus 3.8 mg/dL (2.5-4.9) 04/19/19 17:06 04/19/19 BUN 15 mg/dL (4-19) 09/16/24 14:06 09/16/24 Creatinine 0.77 mg/dL (0.70-1.20) 09/16/24 14:06 09/16/24 Glucose 136 mg/dL (70-99) H 09/16/24 14:06 09/16/24 TSH 0.918 uIU/mL (0.300-4.200) 08/12/24 14:59 08/12/24 COAG HCG, Quant 5 mIU/mL (<9 non-preg) 07/29/16 12:31 07/29/16 Urine Test Negative Negative 08/10/14 06:15 08/10/14 Pre-Assessment Diagnosis/Proposed Procedure Planned Operative Procedure(s): EGD Anesthesia History 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 When Was Last Pacemaker Check QUESTION #4 FULL TEXT: You/Your Family Experience fever (hyperthermia) with Anesthesia Last Oral Intake Last Oral intake: Last Oral Intake NPO since 23:50 09/23/24 09:20 Meds taken in AM with sips of Yes 09/23/24 09:20 water? Meds patient instructed to take am of surgery PONV PONV - treasury manager: PONV - treasury manager Female Yes 09/19/24 11:14 HX of Motion Sickness No 09/19/24 11:14 HX of N/V After Surgery Yes 09/19/24 11:14 Non-Smoker Yes 09/19/24 11:14 Duration of Surgery greater No 09/19/24 11:14 than 60 minutes Number of Risk Factors 3 09/19/24 11:14 PONV Score Moderate Risk 09/19/24 11:14 Height & Weight Height & Weight: Anesthesia: Height & Weight Height 5 ft 6 in 09/23/24 09:20 Weight: 130.2 kg 09/23/24 09:20 Body Mass Index (BMI) 46.3 09/23/24 09:20 Respiratory Assessment Respiratory Assessment - treasury manager: Respiratory Tract Infection Hx - treasury manager Hx Respiratory Tract Infection No: . 09/19/24 11:14 STOP Sleep Apnea STOP Sleep Apnea - treasury manager: STOP Sleep Apnea - treasury manager Hx Hypertension No 09/19/24 11:14 Hx Sleep Apnea No: . 09/19/24 11:14 CPAP No 09/19/24 11:14 BIPAP No 09/19/24 11:14 Do you snore loudly (louder No 09/19/24 11:14 than talking or can be heard Do you often feel tired/ No 09/19/24 11:14 fatigued/ sleepy during daytime? Has anyone observed you stop No 09/19/24 11:14 breathing during sleep? STOP Results Negative 09/19/24 11:14 QUESTION #5 FULL TEXT : Do you snore loudly (louder than talking or can be heard through closed doors)? Tobacco Use History Tobacco Use History - treasury manager: Tobacco Use History - treasury manager Tobacco Use Smoking Status Former smoker 09/19/24 11:14 Hx Tobacco Use Yes 09/19/24 11:14 Years Smoking Packs Smoked per Day Smoking Cessation Date was Yes - quit smoking within 15 09/19/24 11:14 within the last 15 years years Hx Smoking Cessation Date Hx Smoking Cessation Counseling Hematologic Medial History Hematologic Hx - treasury manager: Hematologic Medical Hx - manager state Hx of Blood Transfusion No 09/19/24 11:14 Hx of Transfusion in last 3 No 09/19/24 11:14 Months Date of Last Transfusion (if within last 3 months) Ever experience any problems No 09/19/24 11:14 with transfusion(s)? Specify any problems Hx of Preganancy in last 3 No 09/19/24 11:14 Months Nurse Filling Out Transfusion VCHRISTIN 09/19/24 11:14 & Questions: Date: 09/19/24 09/19/24 11:14 Time: 11:15 09/19/24 11:14 Patient unable to answer at this time (ie. confused, unrespo /Reproduction History /Reproductive History - treasury manager: /Reproductive Hx- treasury manager Hx Now No 09/19/24 11:14 Gestational Age (in weeks): EDC: Hx Hx Para Hx Section SAB No 09/19/24 11:14 PFSH Medical History Wears glasses Anxiety Depression Post-menopausal History of steroid therapy Arthritis History of renal disease Kidney stone High cholesterol Excessive bleeding Back pain Gastric reflux Former smoker Sleep apnea History of edema History of normal Holter exam History of echocardiogram History of stress test Cardiology follow-up encounter Diarrhea Constipation Nausea Epigastric pain Osteoporosis Aneurysm of heart Mixed hyperlipidemia Atherosclerotic heart disease of [place] coronary artery without angina pectoris Sinus tachycardia Bipolar 2 disorder Hyperprolactinemia Pituitary adenoma Essential hypertension Vitamin deficiency Pituitary disorder Breast lump Asthma Anxiety and depression Home Medications ?Medication ?Instructions ?Recorded ?Last Taken ?Type cetirizine 10 mg tablet (Zyrtec) 10 mg PO DAILY 07/29/16 09/22/24 History cholecalciferol (vitamin D3) 50 2,000 unit PO DAILY 04/13/17 09/22/24 History mcg (2,000 unit) capsule albuterol sulfate 90 mcg/actuation 2 puff inhalation Q4H PRN Sob &/Or 07/06/18 09/22/24 History aerosol inhaler (ProAir HFA) Wheezing cabergoline 0.5 mg tablet 0.5 mg PO QWEEK 07/06/18 09/16/24 History methylphenidate HCl 36 mg 36 mg PO DAILY 09/18/21 09/23/24 History tablet,extended release 24 hr (Concerta) albuterol sulfate 2.5 mg/3 mL 2.5 mg inhalation Q4H PRN 12/06/21 09/22/24 History (0.083 %) solution for nebulization shortness of breath or wheezing budesonide-formoterol HFA 80 2 puff inhalation BID 12/06/21 09/22/24 History mcg-4.5 mcg/actuation aerosol inhaler (Symbicort) atorvastatin 20 mg tablet 20 mg PO DAILY #90 tabs 05/05/24 09/22/24 Rx melatonin 5 mg capsule 20 mg PO QHS Sleep 08/12/24 09/22/24 History nitroglycerin 0.4 mg sublingual 0.4 mg sublingual Q5-15M PRN chest 08/12/24 Unknown Rx tablet pain #28 tabs spironolactone 25 mg tablet 25 mg PO QDAY PRN edema 09/01/24 09/20/24 History ascorbic acid (vitamin C) 500 mg 500 mg PO QDAY 09/13/24 09/22/24 History chewable tablet elderberry fruit 350 mg capsule 350 mg PO DAILY 09/13/24 09/22/24 History multivitamin 1 tab PO DAILY 09/13/24 09/22/24 History prednisone 10 mg tablet 5 mg PO QDAY 09/13/24 09/23/24 History fluticasone propionate 50 2 spray intranasal PRN 09/19/24 09/20/24 History mcg/actuation nasal spray,suspension vilazodone 10 mg tablet 10 mg PO DAILY 09/19/24 09/22/24 History Allergy/AdvReac Type Severity Reaction Status Date / Time citalopram hydrobromide Allergy Severe Anaphylaxis Verified 09/23/24 09:16 (From Celexa) methylprednisolone Allergy Intermediate Other Verified 09/23/24 09:16 moxifloxacin HCl (From Allergy Intermediate Hives Verified 09/23/24 09:16 Avelox) doxycycline Allergy Unknown Verified 09/23/24 09:16 naproxen sodium (From Aleve) Allergy Hives Verified 09/23/24 09:16 Family History Mother Osteoporosis Kidney disease High cholesterol Diabetes Arthritis Congestive heart failure Hypertension Father Hypertension High cholesterol Heart disease Grandmother Heart disease Diabetes Surgical History Hx of hernia repair Hx of cystoscopy History of tubal ligation History of ventral hernia repair History of cardiac catheterization (~04/14/17) H/O: hysterectomy Social History Smoking Status: Former smoker quit date: 04/15/24 second hand exposure: Yes alcohol intake: never substance use type: does not use Review of Systems (Anesthesia) ROS Narrative System reviewed and no additional complaints, except as documented.
--- NOTE | 2024-09-23 09:57 | PCM.HP.BLA ---
History and Physical Date of Admission: 09/23/24 Intake Vital Signs 08/12/2513:02 08/23/2513:11 Height 5 ft 8 in 5 ft 8 in Weight: 291 lb 292 lb BMI 44.2 44.4 BP 129/74 H 117/77 Blood Pressure Location Lt brachial Rt brachial Position Sitting Sitting Respiration 18 18 Pulse 96 90 Pulse Source Monitor Monitor Temp 97.2 F L Temp Source Temporal Pulse Oximetry (%) 98 Oxygen Delivery Method room air Intake Visit Reasons: EPIGASTRIC PAIN Chief Complaint: epigastric pain Is patient in pain?: Yes Allergies citalopram hydrobromide (From Celexa) Allergy (Severe, Verified 08/23/24 14:11) Anaphylaxismethylprednisolone Allergy (Intermediate, Verified 08/23/24 14:11) Othermoxifloxacin HCl (From Avelox) Allergy (Intermediate, Verified 08/23/24 14:11) Hivesdoxycycline Allergy (Verified 08/23/24 14:11) Unknownnaproxen sodium (From Aleve) Allergy (Verified 08/23/24 14:11) Hives Medications ?Medication ?Instructions ?Recorded ?Confirmed ?Type cetirizine 10 mg tablet (Zyrtec) 10 mg PO DAILY 07/29/16 08/23/24 History cholecalciferol (vitamin D3) 50 2,000 unit PO DAILY 04/13/17 08/23/24 History mcg (2,000 unit) capsule albuterol sulfate 90 mcg/actuation 2 puff inhalation Q4H PRN Sob &/Or 07/06/18 08/23/24 History aerosol inhaler (ProAir HFA) Wheezing cabergoline 0.5 mg tablet 0.5 mg PO QWEEK 07/06/18 08/23/24 History furosemide 20 mg tablet 20 mg PO DAILY PRN water retention 07/06/18 08/23/24 History multivitamin 1 tab PO DAILY 05/28/21 08/23/24 History methylphenidate HCl 36 mg 36 mg PO DAILY 09/18/21 08/23/24 History tablet,extended release 24 hr (Concerta) prednisone 20 mg tablet 5 mg PO DAILY 09/18/21 08/23/24 History albuterol sulfate 2.5 mg/3 mL 2.5 mg inhalation Q4H PRN 12/06/21 08/23/24 History (0.083 %) solution for nebulization budesonide-formoterol HFA 80 2 puff inhalation BID 12/06/21 08/23/24 History mcg-4.5 mcg/actuation aerosol inhaler (Symbicort) vilazodone 10 mg tablet (Viibryd) 10 mg PO DAILY 12/06/21 08/23/24 History atorvastatin 20 mg tablet 20 mg PO DAILY #90 tabs 05/05/24 08/23/24 Rx melatonin 5 mg capsule 20 mg PO QHS Sleep 08/12/24 08/23/24 History nitroglycerin 0.4 mg sublingual 0.4 mg sublingual Q5-15M PRN chest 08/12/24 08/23/24 Rx tablet pain #28 tabs PFSH Medical History (Updated 08/23/24 @ 14:10 by Ashley Newton LPN) Diarrhea Constipation Nausea Epigastric pain Osteoporosis Aneurysm of heart Mixed hyperlipidemia Atherosclerotic heart disease of [place] coronary artery without angina pectoris Sinus tachycardia Bipolar 2 disorder Hyperprolactinemia Pituitary adenoma Essential hypertension Vitamin deficiency Pituitary disorder Breast lump Asthma Anxiety and depression Surgical History History of tubal ligation History of ventral hernia repair History of cardiac catheterization (~04/14/17) H/O: hysterectomy Family History Mother Osteoporosis Kidney disease High cholesterol Diabetes Arthritis Congestive heart failure HypertensionFather Hypertension High cholesterol Heart diseaseGrandmother Heart disease Diabetes Social History (Updated 08/23/24 @ 14:11 by Ashley Newton LPN) Smoking Status: Former smoker quit date: 04/15/24 second hand exposure: Yes alcohol intake: never substance use type: does not use HPI HPI HPI: Patient is a 54-year-old female with history of ventral hernia repair done by Dr. Stiles. She reports that she has been having epigastric swelling as well as pain. The patient had was mostly with eating and sometimes she feels like food is getting stuck in her distal esophagus. She feels like she is having bulging at the area of her prior hernia repair. ROS General General: Yes weight change (gain) and fatigue; No appetite, colon cancer, breast cancer or weakness HEENT HEENT: No difficulty swallowing, eye injury, eye surgery, swollen glands or hoarseness Endo Endocrine: No thyroid disease, diabetes mellitus, thyroid cancer, Hair loss, heat intolerance or cold intolerance Skin Skin: No rash or changing moles Musc Musculoskeletal: Yes back problems, arthritis and rheumatoid arthritis; No gout or joint pain Cardio Cardiovascular: Yes murmur; No pacemaker, heart disease, atrial fibrillation, high blood pressure, heart attack, heart stent, palpitations, shortness of breath with exertion or chest pain Psych Psychiatric: Yes depression and anxiety; No hearing voices Resp Respiratory: Yes shortness of breath, No sleep apnea, No cough, No COPD, Yes asthma, No emphysema and No wheezing Gastro Gastrointestinal: Yes abdominal pain, Yes nausea or vomiting, Yes diarrhea, Yes constipation, No blood in stool, Yes acid reflux, Yes hemorrhoids, No ulcers, No gallbladder problem and No black,tarry stools Randall Hematologic: Yes anemia Neuro Neurologic: Yes numbness, Yes tingling and No weakness Exam Const General: cooperative Orientation: alert and oriented x3 HENMT Head: normal to inspection Neck Neck: normal visual inspection and full ROM Chest Chest palpation & inspection: normal inspection of the chest Resp Effort & Inspection: normal respiratory effort Auscultation: clear to auscultation bilaterally Cardio Rate: regular rate Rhythm: regular rhythm GI Inspection: non-distended Palpation: soft and nontender Skin General: no rashes or lesions noted Neuro General: patient alert and patient oriented x3 Extrem General: full ROM Psych Appearance: grossly normal Mental Status: mental status grossly normal Assessment and Plan Assessment and Plan (1) History of ventral hernia repair: Status: Chronic Plan: Patient has a history of ventral hernia repair and is feeling bulging. I did not feel an obvious recurrence but she does have a BMI of 45 making physical exam difficult. I would like to order a CT scan to evaluate the prior ventral hernia repair for signs of recurrence (2) Epigastric pain: Status: Acute Plan: Patient is having epigastric pain with eating and she reports that PPI did not help. I will perform an EGD to evaluate. I also discussed performing possible dilation if she needs it. I explained endoscopy in detail to the patient. I explained the risks including but not limited to stroke or heart attack with anesthesia, perforation of the GI tract, bleeding, infection. I explained that any of these could necessitate further emergency surgery. The patient understands and all questions were answered sufficiently. The patient wishes to proceed with procedure. Miguel Cabrera MD Pager: [facility] [address] [place] [address], [address] [place] [address] Office: I have examined the patient and the H&P has been reviewed. There are no clinical changes since date of exam.
--- NOTE | 2024-09-23 10:00 | EGD_PTH ---
PATIENT: JANIE PIERCE LOC: EN U#:[id number] AGE/SX: 54/F ROOM: RE09/23/[address]: Dr. Miguel Cabrera MD : 1970 BED: DIS: 09/23/2024 SPEC #: [id number] RECD: 09/23/24 14:08 STATUS: KELLI GRACE #: [id number] KIMBERLY: 09/23/24 10:[address]: Miguel Cabrera DEPT: SURGICAL PATHOLOGY RECD BY: Keith Aviles ENTERED: 09/23/24 14:08 SP TYPE: EGD BIOPSY ANGELO DR: Dr. Glenn Jefferson MD Tissues: A - Gastric mucous membrane Procedures: Immunohistochemical Stains Surgery Specimen Level IV HEADER OPERATION: EGD PRE-OP DIAGNOSIS: Epigastric pain TISSUE SUBMITTED: A- Antrum biopsy MICROSCOPIC DIAGNOSIS A. Stomach, antrum, biopsy: * Chronic gastritis. * IHC negative for H pylori organisms. COMMENT These tests were developed and their performance characteristics determined by [facility]. They may not have been cleared or approved by the U.S. Food and Drug Administration. The FDA has determined that such clearance or approval is not necessary. The above immunohistochemical/dualISH markers are ordered and reviewed by the Pathologist. MICROSCOPIC DESCRIPTION Slides are reviewed. GROSS DESCRIPTION A. Received in formalin in a container labeled with the patient's name, date of , and antrum biopsy for H. pylori and path are 2 green-pink fragments of mucosal tissue measuring 0.2 x 0.2 x 0.2 cm and 0.6 x 0.3 x 0.2 cm. Submitted in toto in A1. [facility] 10/02/2024 CPT:71318,55327
--- NOTE | 2024-09-23 10:25 | OP.EGD_ITS ---
Patient Name: Ester Melgar Procedure Date: 09/23/2024 10:00 AM Date of : 1970 Age: 54 Procedure: Upper GI endoscopy Indications: Epigastric abdominal pain Providers: Miguel Cabrera MD Medicines: Propofol per Anesthesia Patient Profile: This is a 54 year old female. Refer to note in patient chart for documentation of history and physical. Complications: No immediate complications. Estimated blood loss: Minimal. Procedure: Pre-Anesthesia Assessment: - Prior to the procedure, a History and Physical was performed, and patient medications and allergies were reviewed. The patient's tolerance of previous anesthesia was also reviewed. The risks and benefits of the procedure and the sedation options and risks were discussed with the patient. All questions were answered, and informed consent was obtained. Prior Anticoagulants: The patient has taken no anticoagulant or antiplatelet agents. After reviewing the risks and benefits, the patient was deemed in satisfactory condition to undergo the procedure. After obtaining informed consent, the endoscope was passed under direct vision. Throughout the procedure, the patient's blood pressure, pulse, and oxygen saturations were monitored continuously. The Endoscope was introduced through the mouth, and advanced to the third part of duodenum. The upper GI endoscopy was accomplished without difficulty. The patient tolerated the procedure well. Scope In: 10:17:35 AM Scope Out: 10:20:39 AM Total Procedure Duration Time 0 hours 3 minutes 4 seconds Findings: One cratered esophageal ulcer with no stigmata of recent bleeding was found at the gastroesophageal junction. The stomach was normal. The examined duodenum was normal. Biopsies were taken with a cold forceps in the gastric antrum for Helicobacter pylori testing. Impression: - Esophageal ulcer with no stigmata of recent bleeding. - Normal stomach. - Normal examined duodenum. - Biopsies were taken with a cold forceps for Helicobacter pylori testing. Recommendation: - Discharge patient to home. - Resume previous diet. - Continue present medications. - Use Prilosec (omeprazole) 20 mg PO daily for 2 months. Procedure Code(s): --- Professional --- 44659, Esophagogastroduodenoscopy, flexible, transoral; with biopsy, single or multiple Diagnosis Code(s): --- Professional --- K22.10, Ulcer of esophagus without bleeding R10.13, Epigastric pain CPT copyright 2021 [employer]. All rights reserved. The codes documented in this report are preliminary and upon medical billing coder review may be revised to meet current compliance requirements. Miguel Cabrera MD 09/23/2024 10:24:29 AM This report has been signed electronically. Number of Addenda: 0 Note Initiated On: 09/23/2024 10:00 AM
--- NOTE | 2024-09-23 10:25 | OP.CCLET_ITS ---
09/23/2024 Glenn Jefferson Re : Upper GI endoscopy procedure for Ester Jaegerr Li This procedure was performed on Monday, September 23, 2024. My impressions and recommendations are as follows: Impressions : - Esophageal ulcer with no stigmata of recent bleeding. - Normal stomach. - Normal examined duodenum. - Biopsies were taken with a cold forceps for Helicobacter pylori testing. Recommendations : - Discharge patient to home. - Resume previous diet. - Continue present medications. - Use Prilosec (omeprazole) 20 mg PO daily for 2 months. My findings are described in the full procedure note, which is enclosed. If I can be of further assistance, please feel free to contact me at Doctor phone number(s): , Work: . Sincerely, Miguel Cabrera MD 09/23/2024 10:24:29 AM This report has been signed electronically.
--- NOTE | 2024-09-23 10:34 | PCM.POST.ANE ---
Anesthesia: Postop Eval I Current Vital Signs Temperature: 97.7 F Pulse Rate: 77 Blood Pressure: 89/67 Respiratory Rate: 16 Pulse Ox: 96 Oxygen Delivery Method: Room Air Assessment Airway patent: Yes Spontaneous unlabored respirations: Yes Mental status: Awake and Calm nausea: No Vomiting: No Anesthesia Complication: No Fluid Hydration Crystalloid volume administer (ml): 30 Total IV fluid infused: 30 Progress Note Anesthesia document: Postop Eval 1 completed: Yes
--- NOTE | 2024-09-23 11:12 | PCM.POSTANE2 ---
Anesthesia Postop Eval I Sum Postop Eval Completion status Anesthesia document: Postop Eval 1 completed: Yes Anesthesia Postop Eval I Summary Anesthesia Postop Eval I Summary: Anesthesia Postop Eval I: Assessment Summary Airway patent Yes 09/23/24 10:35 [email or web address] Spontaneous unlabored Yes 09/23/24 10:35 [email or web address] respirations Mental status Awake,Calm 09/23/24 10:35 [email or web address] nausea No 09/23/24 10:35 [email or web address] Vomiting No 09/23/24 10:35 [email or web address] Anesthesia Postop Eval I: Fluid Summary Crystalloid volume administer 30 09/23/24 10:35 [email or web address] (ml) Colloids volume administered ( ml) Blood Product volume administered (ml) Total IV fluid infused 30 09/23/24 10:35 [email or web address] Anesthesia Postop Eval I: Summary Notes Anesthesia Complication No 09/23/24 10:35 [email or web address] Anesthesia Complication Comment: Post-operative progress note Anesthesia: Postop Eval II Evaluation Mental status: Awake Pain Level: 0 nausea: No Vomiting: No
== END 2024-09-23 11:18 | disposition home or self-care (01) ==
LOC: EN 08:54 → AC 08:55
PROVIDERS: PCP Family Medicine; Referring Provider Family Medicine; Visit Provider Surgery
PROC: 0DJ08ZZ Inspection of Upper Intestinal Tract, Via Natural or Artificial Opening Endoscopic (ICD-10-PCS; CPT 43235; principal; 2024-09-23 09:55)
DX: K22.10 Ulcer of esophagus without bleeding (principal); K29.50 Unspecified chronic gastritis without bleeding; I25.10 Atherosclerotic heart disease of native coronary artery without angina pectoris; I10 Essential (primary) hypertension; E78.2 Mixed hyperlipidemia; F32.A Depression, unspecified; F41.9 Anxiety disorder, unspecified; Z87.891 Personal history of nicotine dependence; Z79.899 Other long term (current) drug therapy; Z98.890 Other specified postprocedural states
CPT/HCPCS: 43239; 88305; 88342; A4216; J2405

== ENCOUNTER → 2024-09-29 | Outpatient (CLI) | payer MEDICAID, SELFPAY | END | disposition home or self-care (01) | LOC: SL 13:45 | PROVIDERS: PCP Family Medicine; Referring Provider Internal Medicine Critical Care Medicine; Visit Provider Internal Medicine Critical Care Medicine | DX: G47.33 Obstructive sleep apnea (adult) (pediatric) (principal) | CPT/HCPCS: 95806 ==

== ENCOUNTER → 2024-10-10 | Outpatient (CLI) | payer MEDICAID, SELFPAY | END | disposition home or self-care (01) | LOC: PSN 10:44 | PROVIDERS: PCP Family Medicine; Referring Provider Internal Medicine Critical Care Medicine; Visit Provider Internal Medicine Critical Care Medicine | DX: F17.211 Nicotine dependence, cigarettes, in remission (principal) | CPT/HCPCS: 94060; 94726; 94729 ==

== ENCOUNTER → 2024-10-19 | Outpatient (CLI) | payer MEDICAID, SELFPAY ==
[2024-10-19 14:03] VITALS: PULSE 101; PULSE 77; PULSE 80; PULSE 88; PULSE 99; O2SAT 94; O2SAT 96; O2SAT 97; O2SAT 98
--- NOTE | 2024-10-21 12:06 | PCM.PSN.6M ---
PSN 6 Minute Walk Test 6 Minute Walk Test 6 Minute Walk Test: 6 Minute Walk Test PSN:6-Minute Walk Test Start: 10/19/24 14:00 Freq: Status: Active Protocol: [id number] Document 10/19/24 14:03 ROSA (Rec: 10/19/24 14:07 SFENTON [id number]) 6 Minute Walk Test Date Performed 10/19/24 Time Performed 13:45 Height 5 ft 6 in Weight: 290 lb Weight in Pounds 290.[address]: Brody Desir Assistive device None used: Pre-test Oxygen Delivery Room Air Method Pulse Ox (%) 98 Pulse Rate (60-100 77 beats/min) Dyspnea Julian Scale ( 0 0-10) Exertion Julian Scale 6 (6-20) 1st minute Oxygen Delivery Room Air Method Pulse Ox (%) 96 Pulse Rate (60-100 88 beats/min) 2nd minute Oxygen Delivery Room Air Method Pulse Ox (%) 94 Pulse Rate (60-100 101 H beats/min) 3rd minute Oxygen Delivery Room Air Method Pulse Ox (%) 94 Pulse Rate (60-100 99 beats/min) 4th minute Oxygen Delivery Room Air Method Pulse Ox (%) 94 Pulse Rate (60-100 99 beats/min) 5th minute Oxygen Delivery Room Air Method Pulse Ox (%) 96 Pulse Rate (60-100 99 beats/min) 6th minute Oxygen Delivery Room Air Method Pulse Ox (%) 94 Pulse Rate (60-100 101 H beats/min) Dyspnea Julian Scale ( 4 0-10) Exertion Julian Scale 14 (6-20) Post-test Oxygen Delivery Room Air Method Pulse Ox (%) 97 Pulse Rate (60-100 80 beats/min) Full Laps Walked 19 Partial Lap, Number 5 of Tiles Walked Total Distance 1126 Walked (ft) Interpretation Interpretation: The patient ambulated 1126 feet over the course of 6 minutes beginning on room air without assistive devices. Pretesting oxygen saturation was noted to be 98% on room air. With ambulation, the mickey oxygen saturation was 94%. There was no significant exertional oxygen desaturation. Recommendations Recommendations: There is no indication for the use of supplemental oxygen at this time.
== END | disposition home or self-care (01) ==
LOC: PSN 12:41
PROVIDERS: PCP Family Medicine; Referring Provider Internal Medicine Critical Care Medicine; Visit Provider Internal Medicine Critical Care Medicine
DX: F17.211 Nicotine dependence, cigarettes, in remission (principal)
CPT/HCPCS: 94618

== ENCOUNTER → 2024-11-01 | Outpatient (CLI) | payer MEDICAID, SELFPAY ==
[2024-11-01] MEDS: Zaleplon 5 MG Capsule PO (21:35)
== END | disposition home or self-care (01) ==
LOC: SL 19:56
PROVIDERS: PCP Family Medicine; Referring Provider Internal Medicine Critical Care Medicine; Visit Provider Internal Medicine Critical Care Medicine
DX: G47.30 Sleep apnea, unspecified (principal)
CPT/HCPCS: 95810

== ENCOUNTER → 2024-11-08 | Outpatient (CLI) | payer MEDICAID, SELFPAY ==
--- NOTE | 2024-11-08 15:52 | MRI_ITS ---
PROCEDURE: SPINE LUMBAR (ROUTINE) 11/08/2024 REASON FOR EXAM: PAIN TECHNIQUE: T1, T2, stir, multiplanar and multisequence images were obtained without IV contrast administration. COMPARISON: September 16, 2024 x-ray FINDINGS: The vertebral body alignment is maintained. The vertebral body height is maintained. Vertebral body marrow signal is normal. Intervertebral disc signal shows desiccation from L4-S1. Normal appearing facets are noted. The L1-L2 level: There is no significant disk protrusion. There is no lateral recess stenosis or foraminal stenosis. There is no critical central canal stenosis. The L2-L3 level: There is no significant disk protrusion. There is no lateral recess stenosis or foraminal stenosis. There is no critical central canal stenosis. The L3-L4 level: There is mild central and right paracentral disc protrusion. There is no significant lateral recess or foraminal narrowing. There is mild central canal stenosis. The L4-L5 level: There is moderate central and right and left paracentral disc protrusion with increased signal in the margin of the disc consistent with a fissure. There is mild bilateral lateral recess effacement. There is no significant foraminal narrowing. There is moderate central canal stenosis, partly secondary to ligamentous hypertrophy. The L5-S1 level: There is mild central disk protrusion. There is no lateral recess stenosis or foraminal stenosis. There is no critical central canal stenosis. The visualized conus shows normal signal characteristics. Adjacent soft tissues are unremarkable. MRI/Spine Lumbar (Routine) IMPRESSION: There is mild central canal stenosis at L3-4, moderate central canal stenosis a t L4-5, with no significant foraminal narrowing. Reading Location: [facility]
== END | disposition home or self-care (01) ==
LOC: MRI 15:36
PROVIDERS: PCP Family Medicine; Referring Provider Student in an Organized Health Care Education/Training Program; Visit Provider Student in an Organized Health Care Education/Training Program
DX: M51.369 Other intervertebral disc degeneration, lumbar region without mention of lumbar back pain or lower extremity pain (principal)
CPT/HCPCS: 72148

== ENCOUNTER 2024-11-28 18:01 | Outpatient (RCR) | payer MEDICAID, SELFPAY ==
--- NOTE | 2024-11-28 19:13 | HP.PTEVAL_ITS ---
Patient's Visit Information Visit Information Visit Information: JANIE PIERCE is a 54 year old F referred to Physical Therapy by KATHLEEN Wiley with a diagnosis of LOW BACK PAIN AND LUMBAR DDD. Date of Evaluation: 11/28/24 Physical Therapist: Nelida Downs, PT, Cert MDT Visit Plan Frequency: 2-3x /Week Duration: 4-6 Weeks Plan: POSTURE CORRECTION/STRENGTHENING, INSTRUCTION IN APPROPRIATE BODY MECH ANICS AND ACTIVITY MODIFICATIONS. DLS STARTING WITH A NEUTRAL SPINE PROGRESSING ROM TOLERATED. JOSE CARLOS LE ROM, STRETCHING AND STRENGTHENING. HEP INSTRUCTION. Subjective Subjective: Work/Leisure: UNEMPLOYEED. WORKED ABOUT 12 HOURS A WK AT [email or web address] IN 2019. Disability: NO Present symptoms: CENTRAL AND R>L LOW BACK PAIN. L FOOT GOES TO SLEEP. LEFT LEG FEELS HEAVY. JOSE CARLOS KNEE PAIN AND THEY CRACK AND POP. INTERMITTENT R JHA NUMBNESS AND TINGLING. RIGHT FOOT CRAMPING. Present since: AT LEAST 5 YEARS Pain Scale: WORST 7/10, LEAST 3/10 Currently: 3/10 Is it getting better, worse or staying the same: GETTING WORSE Commenced as a result of: NO APPARENT REASON Symptoms at onset: JOSE CARLOS KNEE PAIN Worse: PUSHING A SHOPPING CART, STANDING DOING DISHES, WALKING, WHEN IT RAINS, WORSE IN THE WINTER, IF I DO ANYTHING. Better: SITTING AND WATCHING TV, RECENT SOLIS ABOUT A WEEK AGO, HEAT Disturbed sleep: YES Previous history/Previous treatment: NO BACK SURGERY. NO KNEE SURGERY. NO PRIOR SOLIS'S. NO PRIOR PT. HAS BEEN TO [facility] (NOT SINCE [facility]) BUT STATES BECAUSE SHE HAS OSTEOPOROSIS [facility] WON'T WORK ON HER ANYMORE. RED LIGHT THERAPY. ELECTRICAL STIM. Treatment this episode: SOLIS LAST THURSDAY WITH SOME BENEFIT - FELT GREAT FOR 45 MINUTES BUT HAD ALLERGIC REACTION TREATED WITH BENEDRYL AND FELT BETTER BY Celia AGUIRRE. STATES STILL FEELS SOME BENEFIT FROM SHOT. Coughing/sneezing/straining: POSITIVE FOR INCREASED PAIN AND STATES SHE HAS FX'D RIBS IN THE PAST. Gait: STATES SHE DOES NOT USE ASSISTIVE DEVICES. DENIES ANY FALLS. Bowel or Bladder Dysfunction: URGE INCONTINENCE. Accidents: NO Unexplained weight loss: NO OTHER: PATIENT DENIES ANY PHYSICIAN RESTRICTIONS. Imagin11/08/24 LUMBAR MRI: IMPRESSION: There is mild central canal stenosis at L3-4, moderate central canal stenosis at L4-5, with no significant foraminal narrowing. PMH/Recent major surgery: Wears glasses Anxiety Depression Post-menopausal History of steroid therapy Arthritis History of renal disease Kidney stone High cholesterol Excessive bleeding Back pain Gastric reflux Former smoker Sleep apnea History of edema History of normal Holter exam History of echocardiogram History of stress test Cardiology follow-up encounter Diarrhea Constipation Nausea Epigastric pain Osteoporosis Aneurysm of heart Mixed hyperlipidemia Atherosclerotic heart disease of andreafski coronary artery without angina pectoris Sinus tachycardia Bipolar 2 disorder Hyperprolactinemia Pituitary adenoma Essential hypertension Vitamin deficiency Pituitary disorder Breast lump Asthma Anxiety and depression Objective Objective: Sitting/Standing Posture: POOR. FH, RSH'S. DECREASED LORDOSIS. Active Correction of posture: ABLE TO PARTIALLY CORRECT BUT NOT MAINTAIN. NE ON PAIN. Other Observations: INDEP GAIT X > 400 FEET WITH FAIR CADANCE, NO LOB BUT MILD SOB THAT RECOVERS QUICKLY IN SITTING. Sensory deficit: JOSE CARLOS LE LIGHT TOUCH SENSATION IS GROSSLY INTACT AND SYMMETRICAL ROM deficit: JOSE CARLOS HIP FLEXOR, HS, AND CALF TIGHTNESS. JOSE CARLOS HIP ROTATOR AND ADDUCTOR TIGHTNESS TOO. Motor deficit: JOSE CARLOS LE'S GROSSLY 5/5 WITH MMT'ING EXCEPT HIPS 4/5 Reflexes: 2+ JOSE CARLOS QUADS AND ACHILLES. Dural Signs: NEGATIVE JOSE CARLOS LE'S. Lumbar mvmt loss: flex - INESSA IN STANDING AND MOD IN SITTING. PATIENT REPORTS SHE GETS DIZZI IN STANDING THEREFORE LIMITS IT WITH ADL'S INCLUDING DRESSING. ext - INESSA R SG - MOD L SG - MOD PATIENT C/O INCRASED LOW BACK PAIN WITH LUMBAR ROM TESTING ALL PLANES Core strength: POOR 30 STS TEST: 3 - 1 REP WITHOUT UE ASSIST THEN 2 WITH ONE HAND ON ARM OF CHAIR AND ON HAND ON LEG. TUG TIME: 15.75 SEC WITHOUT AD. Balance/Special Test Scores Oswestry Low Back Score: 28 Goals Goal 1:: DECREASE C/O LOW BACK AND LE SX'S BY AT LEAST 50% TO EASE ADL FUNCTION Goal Time Frame: 4-6 Weeks Goal 2:: IMRPOVE PERSONAL CARE, LIFTING, WALKING, SLEEP, SOCIAL LIFE, AND HOMEMAKING FUNCTION WITH AT LEAST 8 POINT IMPROVEMENT IN BACK OSWESTRY QUESTIONNAIRE SCORE. Goal Time Frame: 4-6 Weeks Goal 3:: PATIENT WILL COMPLETE 8 STANDS IN 30 SECS WITHOUT UE ASSIST TO DEMONSTRATE IMPROVED FUNCTIONAL STRENGTH Goal Time Frame: 4-6 Weeks Goal 4:: PATIENT WILL COMPLETE TUG IN < 12 SECS TO DEMONSTRATE IMPROVED GAIT STABILITY WITHOUT AD. Goal Time Frame: 4-6 Weeks Goal 5:: INDEP HEP. Goal Time Frame: 4-6 Weeks Rehabilitation Potential Physical Therapy Diagnosis: CORE AND LE STIFFNESS AND WEAKNESS Rehabilitation Potential: Good Anticipated Interventions Patient/Client Instruction: Educate patient on: Condition, Plan of Care and Risk Factors For the Purpose of:: To improve self management Therapeutic Exercise to Include: Strength training, Body mechanics, Postural training, Flexibilty training, Neuromotor development, In an aquatic setting and Dynamic Lumbar Stabilization For the Purpose of:: To decrease pain, To improve muscle performance and motor function, To improve ability to perform ADL's, To increase tolerance to activity/condition/position, To improve ability of physical actions for home/community/work/leisure, To improve gait and locomotor functions and To improve self management Text: Thank you for the opportunity to evaluate your patient. For Medicare and Medicare HMO plans, please review the plan of care and approve it. It will need to be FAXED BACK to us at [phone] for Medicare purposes. For Medicare only, by signing this I certify the plan of care. Please let me know if there are questions or concerns regarding this plan of care. Physician Signature: Date:
== END 2024-11-28 19:00 | disposition home or self-care (01) ==
LOC: PT 18:01
PROVIDERS: PCP Family Medicine; Referring Provider Student in an Organized Health Care Education/Training Program; Visit Provider Student in an Organized Health Care Education/Training Program
DX: M51.369 Other intervertebral disc degeneration, lumbar region without mention of lumbar back pain or lower extremity pain (principal); M54.50 Low back pain, unspecified
CPT/HCPCS: 97162

== ENCOUNTER → 2025-01-03 | Outpatient (CLI) | payer MEDICAID, SELFPAY ==
--- NOTE | 2025-01-03 15:48 | RAD_ITS ---
PROCEDURE: SHOULDER MIN 2 VIEWS 01/03/2025 REASON FOR EXAM: PAIN TECHNIQUE: SHOULDER MIN 2 VIEWS COMPARISON: None FINDINGS: No displaced fracture or dislocation. Mild joint space narrowing and osteophyte formation at the left acromioclavicular and right glenohumeral joints. Visualized thorax is unremarkable. Soft tissues are unremarkable. RAD/Shoulder min 2 Views IMPRESSION: Mild osteoarthritis of the left acromioclavicular joint and right glenohumeral joint. Reading Location: [facility]
--- NOTE | 2025-01-03 15:48 | RAD_ITS ---
PROCEDURE: KNEE 4 OR MORE VIEWS 01/03/2025 REASON FOR EXAM: PAIN TECHNIQUE: KNEE 4 OR MORE VIEWS COMPARISON: None FINDINGS: No displaced fracture or traumatic malalignment. No significant joint effusion on either side. There is mild to moderate joint space narrowing and osteophyte formation in the medial and patellofemoral compartments bilaterally. There is a calcification measuring 1.9 cm which projects in the medial soft tissues of the left knee. Bone mineral density is subjectively normal. RAD/Knee 4 or More Views IMPRESSION: 1. Qdzz-hl-odwkiruz osteoarthritis of both knees. 2. Calcification measuring 1.9 cm in the medial soft tissues of the left knee is favored to be extra-articular. Reading Location: [facility]
--- NOTE | 2025-01-03 15:48 | RAD_ITS ---
PROCEDURE: KNEE 4 OR MORE VIEWS 01/03/2025 REASON FOR EXAM: PAIN TECHNIQUE: KNEE 4 OR MORE VIEWS COMPARISON: None FINDINGS: No displaced fracture or traumatic malalignment. No significant joint effusion on either side. There is mild to moderate joint space narrowing and osteophyte formation in the medial and patellofemoral compartments bilaterally. There is a calcification measuring 1.9 cm which projects in the medial soft tissues of the left knee. Bone mineral density is subjectively normal. RAD/Knee 4 or More Views IMPRESSION: 1. Minv-kl-yvbmaums osteoarthritis of both knees. 2. Calcification measuring 1.9 cm in the medial soft tissues of the left knee is favored to be extra-articular. Reading Location: [facility]
--- NOTE | 2025-01-03 15:49 | RAD_ITS ---
PROCEDURE: SHOULDER MIN 2 VIEWS 01/03/2025 REASON FOR EXAM: PAIN TECHNIQUE: SHOULDER MIN 2 VIEWS COMPARISON: None FINDINGS: No displaced fracture or dislocation. Mild joint space narrowing and osteophyte formation at the left acromioclavicular and right glenohumeral joints. Visualized thorax is unremarkable. Soft tissues are unremarkable. RAD/Shoulder min 2 Views IMPRESSION: Mild osteoarthritis of the left acromioclavicular joint and right glenohumeral joint. Reading Location: [facility]
== END | disposition home or self-care (01) ==
LOC: MTRAD 15:46
PROVIDERS: PCP Family Medicine; Referring Provider Anesthesiology Pain Medicine; Visit Provider Anesthesiology Pain Medicine
DX: M25.561 Pain in right knee (principal); M25.562 Pain in left knee; M25.511 Pain in right shoulder; M25.512 Pain in left shoulder
CPT/HCPCS: 73030; 73564

== ENCOUNTER → 2025-02-01 | Outpatient (CLI) | payer MEDICAID, SELFPAY ==
--- NOTE | 2025-02-01 12:55 | ECHOCS_ITS ---
Reason For Study Reason For Study: SOB Procedure This was a 2D Doppler, Color Flow transthoracic echocardiogram. The study was technically difficult. Contrast injection was performed. Exam performed in department. Left Ventricle Normal LV size. The left ventricular ejection fraction is 55 %. Stage 1 diastolic dysfunction. No regional wall motion abnormalities noted. Right Ventricle Normal RV size. Normal systolic function. Atria Normal left atrium. Normal right atrium. Bubble contrast study is negative for PFO/ASD. Mitral Valve Normal mitral valve. Tricuspid Valve Normal tricuspid valve. Aortic Valve Trisinus/trileaflet aortic valve. Pulmonic Valve Normal pulmonic valve. Great Vessels Normal aortic root. The pulmonary artery is normal size. Inferior vena cava collapse with respiration. Pericardium/Pleural No pericardial effusion. Medication 22 gauge I.V. with prn adaptor inserted into right arm. Diluted definity 5ml given slow IV push to enhance endocardial definition. Performed a rapid injection of agitated mix of 9 cc saline and 1cc air to assess for atrial septal defect. MMode/2D Measurements & Calculations RVDd: 3.6 cm Ao root diam: 3.8 cm LAV(MOD- bp): 42.8 ml LAV(MOD- bp) Indexed: 18.3 ml/m2 LAV(MOD- sp2): 50.6 ml LAV(MOD- sp4): 32.1 ml SV(MOD-sp4): 67.3 ml SV(sp4- el): 67.6 ml LVAd ap4: 35.0 cm2 LVLd ap4: 8.5 cm SI(MOD-sp4): 28.8 ml/m2 EDV(MOD-sp4): 119.3 ml EDV(sp4-el): 121.6 ml LVAs ap4: 21.5 cm2 LVLs ap4: 7.3 cm ESV(MOD-sp4): 52.1 ml ESV(sp4-el): 54.0 ml EF(MOD-sp4): 56.4 % EF(sp4-el): 55.6 % LA dimension(2D): 3.6 cm LA A4 area: 13.9 cm2 RA A4 area: 10.8 cm2 Time Measurements MV dec time: 0.24 sec Doppler Measurements & Calculations MV E max raymon: 69.9 cm/sec Lat Peak E' Raymon: 7.6 cm/sec Med Peak E' Raymon: 7.2 cm/sec MV A max raymon: 89.6 cm/sec E/E' lat: 9.1 E/E' med: 9.7 MV E/A: 0.78 MV V2 max: 94.1 cm/sec MV P1/2t max raymon: 83.5 cm/sec Ao V2 max: 122.8 cm/sec MV max P.5 mmHg MV P1/2t: 84.8 msec Ao max P.0 mmHg MV V2 mean: 56.4 cm/sec MV dec slope: 288.5 cm/sec2 Ao V2 mean: 91.8 cm/sec MV mean P.5 mmHg Ao mean P.8 mmHg MV V2 VTI: 23.7 cm MVA(P1/2t): 2.6 cm2 Ao V2 VTI: 26.6 cm AV (velocity ratio): 0.98 LV V1 max: 111.7 cm/sec PA V2 max: 69.9 cm/sec LV V1 max P.0 mmHg LV V1 mean P.0 mmHg LV V1 mean: 81.4 cm/sec LV V1 VTI: 26.2 cm ECHO/Echo Complete W/ Contrast Interpretation Summary Bubble contrast study is negative for PFO/ASD. Normal LV size. The left ventricular ejection fraction is 55 %. Stage 1 diastolic dysfunction. Contrast injection was performed. Ordering Physician: Sherry Messina Referring Physician: Sherry Messina Performed By: Jacob Drake RCS
== END | disposition home or self-care (01) ==
LOC: CVS 12:54
PROVIDERS: PCP Family Medicine; Referring Provider Nurse Practitioner Family; Visit Provider Nurse Practitioner Family
DX: R06.02 Shortness of breath (principal)
CPT/HCPCS: 93306; Q9957; A4216; C8929

== ENCOUNTER 2025-05-04 18:16 | Emergency (ER) | payer MEDICAID, SELFPAY ==
[2025-05-04 18:16] VITALS: BP 118/96; PULSE 99; RESP 16; TEMP 36.8; O2SAT 100; BMI 45.6
--- NOTE | 2025-05-04 18:31 | CT_ITS ---
PROCEDURE: CT ABDOMEN/PELVIS W IV CONT ONLY 05/04/2025 REASON FOR EXAM: LEFT-SIDED ABDOMINAL PAIN. TECHNIQUE: Procedure Code: [id number] Modality: CT Procedure: ABDOMEN/PELVIS W IV CONT ONLY Coronal and Sagittal reconstruction series were provided. CONTRAST: Isovue 370 VOLUME: 96 mL One or more dose reduction techniques were used (e.g., Automated exposure control, adjustment of the mA and/or kV according to patient size, use of iterative reconstruction technique. RADIATION DOSE SUMMARY: DLP: 1275.47 mGycm COMPARISON: 09/21/2024 FINDINGS: Lung bases: Clear. Liver: Hepatic steatosis. Gallbladder: Unremarkable. Spleen: Unremarkable. Pancreas: Unremarkable. Adrenals: Unremarkable. Kidneys: Normal in size with symmetric enhancement. Tiny subcentimeter nonobstructive left lower pole renal stone. No hydronephrosis on either side. Bladder: Unremarkable. Reproductive Organs: Prior hysterectomy and probable BSO. Bowel: Unremarkable stomach and small bowel. No evidence of obstruction. Normal appendix. Inflammatory changes/edema surrounding a locule of fat at the external margin of the proximal sigmoid colon in the left lower abdomen compatible with acute epiploic appendagitis. Lymph nodes: No suspicious lymph node enlargement. Vasculature: Normal caliber abdominal aorta. Mild atherosclerotic calcifications. Peritoneum / Retroperitoneum: No ascites or free air. Bones: Unremarkable. CT/Abdomen/Pelvis W IV Cont ONLY IMPRESSION: 1. Acute epiploic appendagitis of the proximal sigmoid colon. 2. Tiny subcentimeter nonobstructive left renal stone. 3. Diffuse hepatic steatosis. Reading Location: [id number]
--- NOTE | 2025-05-04 18:32 | ED.VIS.GI ---
HPI HPI - GI History of Present Illness Chief Complaint: Abd Pain Informant: patient Abdominal Pain/Flank Pain Onset: Yesterday Context: Gradual Onset Timing: Continuous Location: LUQ and LLQ Current Severity: Mild Maximum Severity: Mild Worsened by: Car ride Relieved by: Nothing Nausea/Vomiting/Emesis GI Symptom: Negative for Nausea or Vomiting Diarrhea/Melena/Hematochezia GI Symptom: Negative for Diarrhea, Melena or Hematochezia Associated Symptoms Associated Symptoms: Negative for Dysuria, Frequency, Hematuria or Urgency Narrative Narrative: 55-year-old female prior hysterectomy and hernia repair. Prior kidney stone. Thinks she may have had diverticulitis before. States last evening she started getting left-sided abdominal pain in her left lower quadrant. Associated chills. No fever. No vomiting. No diarrhea. She took Ex-Lax had a bowel movement. Denies any dysuria. Denies any trauma. Prior similar symptoms: Yes Recent Illness/Hospitalization: No PFSH PFSH Medical History ADHD PTSD (post-traumatic stress disorder) Wears glasses Anxiety Depression Post-menopausal History of steroid therapy Arthritis History of renal disease Kidney stone High cholesterol Excessive bleeding Back pain Gastric reflux Former smoker Sleep apnea History of edema History of normal Holter exam History of echocardiogram History of stress test Cardiology follow-up encounter Diarrhea Constipation Nausea Epigastric pain Osteoporosis Aneurysm of heart Mixed hyperlipidemia Atherosclerotic heart disease of [place] coronary artery without angina pectoris Sinus tachycardia Bipolar 2 disorder Hyperprolactinemia Pituitary adenoma Essential hypertension Vitamin deficiency Pituitary disorder Breast lump Asthma Anxiety and depression Home Medications Medication Instructions Recorded Last Taken Type cetirizine 10 mg tablet (Zyrtec) 10 mg PO DAILY 07/29/16 09/22/24 History cholecalciferol (vitamin D3) 50 2,000 unit PO DAILY 04/13/17 09/22/24 History mcg (2,000 unit) capsule albuterol sulfate 90 mcg/actuation 2 puff inhalation Q4H PRN Sob &/Or 07/06/18 09/22/24 History aerosol inhaler (ProAir HFA) Wheezing cabergoline 0.5 mg tablet 0.5 mg PO QWEEK 07/06/18 09/16/24 History albuterol sulfate 2.5 mg/3 mL 2.5 mg inhalation Q4H PRN 12/06/21 09/22/24 History (0.083 %) solution for nebulization shortness of breath or wheezing atorvastatin 20 mg tablet 20 mg PO DAILY #90 tabs 05/05/24 09/22/24 Rx nitroglycerin 0.4 mg sublingual 0.4 mg sublingual Q5-15M PRN chest 08/12/24 Unknown Rx tablet pain #28 tabs spironolactone 25 mg tablet 25 mg PO QDAY PRN edema 09/01/24 09/20/24 History elderberry fruit 350 mg capsule 350 mg PO DAILY 09/13/24 09/22/24 History multivitamin 1 tab PO DAILY 09/13/24 09/22/24 History prednisone 10 mg tablet 5 mg PO QDAY 09/13/24 09/23/24 History fluticasone propionate 50 2 spray intranasal PRN 09/19/24 09/20/24 History mcg/actuation nasal spray,suspension omeprazole 20 mg tablet,delayed 20 mg PO DAILY #60 tabs 11/14/24 Unknown Rx release omeprazole 20 mg capsule,delayed 20 mg PO DAILY #60 caps 11/15/24 Unknown Rx release budesonide-formoterol HFA 160 2 puff inhalation BID #10.2 grams 01/04/25 Unknown Rx mcg-4.5 mcg/actuation aerosol inhaler (Symbicort) metformin 500 mg tablet,extended mg PO 01/04/25 Unknown History release 24 hr melatonin 5 mg capsule 10 mg PO QHS Sleep 04/05/25 Unknown History Concerta 36 mg tablet,extended 36 mg PO DAILY 30 days #30 tabs 04/12/25 Unknown Rx release (methylphenidate HCl) lorazepam 1 mg tablet 1 mg PO QDAY PRN anxiety #10 tabs 04/12/25 Unknown Rx Allergy/AdvReac Type Severity Reaction Status Date / Time citalopram hydrobromide Allergy Severe Anaphylaxis Verified 05/04/25 18:20 (From Celexa) methylprednisolone Allergy Intermediate Other Verified 05/04/25 18:20 moxifloxacin HCl (From Allergy Intermediate Hives Verified 05/04/25 18:20 Avelox) doxycycline Allergy Unknown Verified 05/04/25 18:20 naproxen sodium (From Aleve) Allergy Hives Verified 05/04/25 18:20 Family History Mother Osteoporosis Kidney disease High cholesterol Diabetes Arthritis Congestive heart failure Hypertension Father Hypertension High cholesterol Heart disease Grandmother Heart disease Diabetes Surgical History Hx of hernia repair Hx of cystoscopy History of tubal ligation History of ventral hernia repair History of cardiac catheterization (~04/14/17) H/O: hysterectomy Social History Smoking Status: Current every day smoker tobacco type: cigarettes second hand exposure: Yes alcohol intake: never substance use type: does not use ROS ROS ED ROS Narrative Left side abdominal pain. Chills. Constitutional Constitutional ED: Reports chills; Denies fever(s) ENT ENT ED: Denies ear pain Cardiovascular Cardiovascular: Denies chest pain Respiratory/Chest Respiratory/Chest: Denies cough or dyspnea Gastrointestinal Gastrointestinal: Reports abdominal pain; Denies diarrhea, melena, nausea or vomiting Genitourinary Genitourinary ED: Denies dysuria or hematuria Musculoskeletal Musculoskeletal: Denies arthralgias Integumentary Denies abscess Neurologic Neurologic: Denies headache(s) Psychiatric Psychiatric: Denies anxiety Endocrine Endocrinology: Denies polydipsia, polyphagia or polyuria Hematologic/Lymphatic Hematologic/Lymphatic: Denies easy bleeding Allergic/Immunologic Allergic/Immunologic ED: Denies mouth swelling, tongue swelling or urticaria EXAM Physical Exam Narrative Exam Narrative: 55-year-old female sitting upright in bed. Vital signs stable afebrile. Does not look septic toxic. No distress. H EENT exam pupils round react light. Moist mutes members. Neck nontender no JVD. Lungs clear to auscultation bilaterally. Heart regular rhythm rate about 95 no murmur. Back nontender. Chest and ribs nontender. Abdomen soft nondistended normal bowel sounds without peritoneal signs. Left upper and left lower quadrant tenderness. More so in the left lower quadrant. No hernia or mass. No obstruction. Right upper right lower quadrant unremarkable. No distention or obstruction. No pulsatile mass. Moving all 4 extremities. Normal strength. Neurologically she is awake alert. Answering questions and following commands. Const Vital Signs: 05/04/25 18:16 05/04/25 20:16 Temperature 98.2 F Temperature Source Temporal Pulse Rate 99 82 Respiratory Rate 16 14 Blood Pressure 118/96 H 125/87 H Blood Pressure Mean 103 99 Pulse Ox 100 97 Oxygen Delivery Method Room Air Room Air MDM MDM MDM Narrative Medical decision making narrative: 55-year-old female left side abdominal pain differential would include diverticulitis, stone, UTI versus other etiologies. She was offered but did not want a thing for pain and is not having any nausea. CAT scan and labs will be obtained. Repeat exam patient is doing well. She and I discussed her test results and CAT scan. Treatment of epiploic appendagitis. She is are currently already on steroids. She does not want to be placed on pain medication. She is comfortable being discharged to home. We are still waiting for her urine sample. History & Record Review Discussion w/independent historian: Patient Additional record(s) reviewed:: Prior outpatient record, Prior ED visit and Prior labs Lab Data Attestation: I reviewed the patient's lab results. Lab results narrative: CBC normal white count of 6.1. H&H 14 and 41. Platelets 184. Electrolytes unremarkable gap 11. BUN and creatinine of 13 and 0.6. Glucose 114. Liver enzymes normal. Lipase normal at 39. UA is negative. Labs: Laboratory Results - last 24 hr 05/04/25 05/04/25 18:40 20:04 WBC 6.1 RBC 4.93 Hgb 14.1 Hct 41.4 MCV 84.0 MCH 28.6 MCHC 34.1 RDW Std Deviation 40.7 RDW Coeff of Je 13.2 Plt Count 184 MPV 11.1 Immature Gran % (Auto) 0.000 Neut % (Auto) 66.4 Lymph % (Auto) 25.8 Bailey % (Auto) 6.0 Eos % (Auto) 1.5 Baso % (Auto) 0.3 Absolute Neuts (auto) 4.1 Absolute Lymphs (auto) 1.58 Nucleated RBC % 0 Sodium 138 Potassium 4.0 Chloride 103 Carbon Dioxide 23.3 Anion Gap 11 BUN 13 Creatinine 0.67 L Estim Creat Clear Calc 131.72 Est GFR (MDRD) Non-Af 104 BUN/Creatinine Ratio 19.4 Glucose 114 H Calcium 9.7 Total Bilirubin 0.57 AST 20 ALT 18 Alkaline Phosphatase 67 Total Protein 7.1 Albumin 4.4 Globulin 2.7 Albumin/Globulin Ratio 1.6 Lipase 39 Urine Color Yellow Urine Clarity Clear Urine pH 6.5 Ur Specific Thornton 1.005 Urine Protein Negative Urine Glucose (UA) Normal Urine Ketones Negative Urine Occult Blood Negative Urine Nitrite Negative Urine Bilirubin Negative Urine Urobilinogen Normal Ur Leukocyte Esterase Negative Radiography Diagnostic Testing: Clinical Impression(s) from Imaging Studies Abdomen/Pelvis CT 05/04/25 18:31 IMPRESSION: 1. Acute epiploic appendagitis of the proximal sigmoid colon. 2. Tiny subcentimeter nonobstructive left renal stone. 3. Diffuse hepatic steatosis. Reading Location: [id number] Discharge Plan Triage Chief Complaint: Abd Pain ED Provider: Domingo Duffy Dx/Rx/DC Orders Clinical Impression: Abdominal pain, Epiploic appendagitis Instructions: Epiploic Appendagitis Prescriptions: No Action melatonin 5 mg capsule 10 mg PO QHS cabergoline 0.5 mg tablet 0.5 mg PO QWEEK ProAir HFA 90 mcg/actuation HFA aerosol inhaler 2 puff INHALATION Q4H PRN (Reason: Sob &/Or Wheezing) albuterol sulfate 2.5 mg /3 mL (0.083 %) solution for nebulization 2.5 mg inhalation Q4H PRN (Reason: shortness of breath or wheezing) nitroglycerin 0.4 mg tablet, sublingual 0.4 mg SUBLINGUAL Q5-15M PRN (Reason: chest pain) Qty: 28 3RF elderberry fruit 350 mg capsule 350 mg PO DAILY spironolactone 25 mg tablet 25 mg PO QDAY PRN (Reason: edema) prednisone 10 mg tablet 5 mg PO QDAY metformin 500 mg tablet extended release 24 hr PO budesonide-formoterol [Symbicort] 160-4.5 mcg/actuation HFA aerosol inhaler 2 puff inhalation BID Qty: 10.2 5RF methylphenidate HCl [Concerta] 36 mg tablet extended release 24hr 36 mg PO DAILY 30 Days Qty: 30 0RF lorazepam 1 mg tablet 1 mg PO QDAY PRN (Reason: anxiety) Qty: 10 1RF cetirizine [Zyrtec] 10 MG tablet 10 mg PO DAILY cholecalciferol (vitamin D3) 2,000 UNIT capsule 2,000 unit PO DAILY multivitamin Tablet 1 tab PO DAILY fluticasone propionate 50 mcg/actuation spray,suspension 2 spray INTRANASAL PRN atorvastatin 20 mg tablet 20 mg PO DAILY Qty: 90 3RF omeprazole 20 mg tablet,delayed release (DR/EC) 20 mg PO DAILY Qty: 60 0RF omeprazole 20 mg capsule,delayed release(DR/EC) 20 mg PO DAILY Qty: 60 11RF Primary Care Provider: Glenn Jefferson Referrals: Glenn Jefferson MD [Primary Care Provider, Medical] - 3-5 Days if not improving Print Language: [place] Disposition Disposition: Home, Self Care
[2025-05-04] MEDS: 0.9% Normal Saline (1000mL) 1,000 ML 999 ML IV (18:46)
[2025-05-04 19:03] LABS: Hematocrit 41.4 % (37-47); Hemoglobin 14.1 g/dL (12.0-15.0); Immature Granulocytes Count 0.000 X10^3/uL (0.0-0.0); Mean Corp Hgb Conc 34.1 g/dL (32-36); Mean Corpuscular Volume 84.0 fL (81-99); Mean Platelet Vol. 11.1 fl (6.2-12.0); NRBC Flagged by Analyzer 0 % (0-5); Platelet Count 184 K/mm3 (150-450); RBC Distribution Width CV 13.2 % (11.6-14.6); RBC Distribution Width SD 40.7 fl (35.1-43.9); Red Blood Count 4.93 M/mm3 (4.2-5.4); White Blood Count 6.1 K/mm3 (4.4-11.0)
[2025-05-04 19:11] LABS: AST(SGOT) 20 U/L (<=31); Alanine Aminotransfer ALT/SGPT 18 U/L (<=34); Albumin, Serum 4.4 g/dL (3.5-5.0); Alkaline Phosphatase 67 U/L (35-104); Anion Gap 11 (5-15); BUN 13 mg/dL (4-19); BUN/Creat Ratio 19.4 RATIO (10-20); Calcium,Total 9.7 mg/dL (7.6-11.0); Carbon Dioxide 23.3 mmol/L (21.0-32.0); Chloride 103 mmol/L (98-108); Estimated Creatinine Clearance 131.72 ml/min (50-250); Globulin 2.7 g/dL (2.2-4.2); Glucose 114 mg/dL (70-99); Lipase 39 U/L (13-75); Potassium 4.0 mmol/L (3.3-5.1)
[2025-05-04 20:08] LABS: Mucous, Urine 0 SEEN /hpf (<or=2+)
[2025-05-04 20:11] LABS: Color, Urine Yellow (Yellow); Glucose, Dipstick Normal (Normal); Ketone-Dipstick Negative (Negative); Leukocyte Esterase-Dipstick Negative /ul (Negative); Nitrite-Dipstick Negative (Negative); Occult Blood-Urine Negative /ul (Negative); Protein-Dipstick Negative (Negative); Specific Gravity, Urine 1.005 (1.002-1.030); Urine Bilirubin Dipstick Negative (Negative)
[2025-05-04 20:16] VITALS: BP 125/87; PULSE 82; RESP 14; O2SAT 97
[2025-05-04 20:47] VITALS: BP 110/75; PULSE 80; RESP 14; TEMP 36.6; O2SAT 97
[2025-05-04 20:47] LABS: Red Blood Cells-Urine 0-5 SEEN /hpf (0-5)
[2025-05-04 20:49] LABS: Squamous Epithelial Cells - UA 0-5 SEEN /hpf (5-10)
== END 2025-05-04 20:57 | disposition home or self-care (01) ==
PROVIDERS: Emergency Provider Emergency Medicine; PCP Family Medicine; Visit Provider Emergency Medicine
DX: K63.89 Other specified diseases of intestine (principal); Q43.8 Other specified congenital malformations of intestine; F17.210 Nicotine dependence, cigarettes, uncomplicated
CPT/HCPCS: 74177; 80053; 81001; 83690; 85025; 96360; 96361; 99283; Q9967; A4216